=== PATIENT | male | born 1950 | race Caucasian/White ===

== ENCOUNTER 2017-06-03 03:50 | Inpatient (IN) | payer MEDICARE ==
[2017-06-03] VITALS (9 sets, daily range): BP systolic 111–198; BP diastolic 60–96
[~2017-06-03] VITALS: Ht 160 cm; Wt 124.0 kg
--- NOTE | ~2017-06-03 | PR ---
[place], [place] PROGRESS NOTE NAME: SHILPI FUENTES JR UNIT #: [id number] ROOM: 507 DOCTOR: AUDREY VELIZ MD BIRTHDATE: [birth year] DOS: SUBJECTIVE: The patient was seen today in the preoperative area prior to a planned elective cardioversion. He continues to have some cough and breathlessness along with fatigue and palpitations. He was taken to the operating room where he was given a total of 3 synchronized biphasic shocks under general anesthesia. The first one at 100 watt second, it did convert him to sinus rhythm for 2-3 heartbeats, but then he reverted back to atrial fibrillation. The second one at 100 watt seconds, had no effect. The third one at 200 watt seconds converted him for 15-20 seconds, but then he reverted back to atrial fibrillation. OBJECTIVE: VITAL SIGNS: On exam today, his pulse is 78 and irregularly irregular, blood pressure 130/80. He is afebrile. NECK: Supple. He has no jugular distention. CHEST: Clear anteriorly and laterally. HEART: Has an irregularly irregular rhythm. ABDOMEN: Obese. EXTREMITIES: Showed trace edema. IMPRESSION: 1. Persistent atrial fibrillation. 2. Hypertension. 3. Diastolic heart failure due to atrial fibrillation. PLAN: The patient did have a normal stress test and echocardiogram with normal left atrial dimensions. I think that he is a good candidate for antiarrhythmic therapy and another attempted cardioversion. The patient will be placed on propafenone 325 mg twice a day and discharged to home. After 3 weeks of therapy, we will attempt again to cardiovert him as an outpatient. I have discussed this with Dr. Marinelli. The plan was explained to the patient via the sign science interpreter and he appears to understand. I thank Dr. Marinelli for asking our advice regarding management of this patient. [place], [place] PROGRESS NOTE NAME: SHILPI FUENTES JR UNIT #: [id number] ROOM: 507 DOCTOR: AUDREY VELIZ MD BIRTHDATE: [birth year] AUDREY VELIZ MD CM:PNTRANS [id number] AUDREY VELIZ MD 06/07/17 2243 interface
--- NOTE | ~2017-06-03 | DS ---
[place], [place] DISCHARGE SUMMARY NAME: [facility]ES JR [id number] UN[facility] #: [id number] ROOM: 507 DOCTOR: RAND RITTER MD BIRTHDATE: [birth year] DOS: DATE OF DISCHARGE: 06/05/2017 DISCHARGE DIAGNOSES: 1. The patient with chest tightness from uncertain etiology, going for cardiac stress test and will be discharged to home if Cardiology finds the stress test to be normal. 2. Obesity. The patient working on diet. 3. Chronic stasis dermatitis involving both legs. 4. Benign essential hypertension. 5. Chronic atrial fibrillation. 6. Uncontrolled type 2 diabetes mellitus with poor compliance with diet. 7. Mixed hyperlipidemia. 8. Hearing impairment. HOSPITAL COURSE: The patient was admitted to [facility] with increased shortness of breath and chest tightness. The patient was evaluated by Cardiology. All cardiac enzymes have been negative and he will get a cardiac stress test tomorrow and if normal, he will be discharged to home or transferred to [facility] by Dr. Dc because he was scheduled for ablation procedure at ____ [facility] previously for chronic atrial fibrillation. Nursing staff will call me with cardiac stress test results. Chronic atrial fibrillation with controlled heart rates. The patient going for ablation study to be performed by his orthopedic podiatrist. The patient is anticoagulated with Xarelto. Benign essential hypertension with well controlled blood pressures. Uncontrolled type 2 diabetes mellitus, apparently diet related. The patient's blood sugars were better controlled during his stay at the hospital because he was kept on a no concentrated sweet diet, which he apparently does not follow at home. Mixed hyperlipidemia, treated with Lipitor, which was continued. The patient also takes aspirin. Pollen allergies, treated with cetirizine. DISCHARGE MANAGEMENT: Lipitor 10 mg a day, Zaroxolyn 20 mg a day, metoprolol 50 mg b.i.d., aspirin 81 mg a day, cetirizine 10 mg a day, potassium chloride 10 mEq b.i.d., furosemide 40 mg b.i.d., Cardizem-CD 240 mg b.i.d., losartan 50 mg daily, Tylenol p.r.n., DuoNeb every 6 hours as needed for shortness of breath, omeprazole 20 mg daily, metformin 1000 mg b.i.d. [place], [place] DISCHARGE SUMMARY NAME: SHILPI FUENTES JR UNIT #: [id number] ROOM: 507 DOCTOR: RAND RITTER MD BIRTHDATE: [birth year] RAND RITTER MD CM:DIMAS [id number] RAND RITTER MD 06/05/17 1208 interface
--- NOTE | ~2017-06-03 | PR ---
[place], [place] PROGRESS NOTE NAME: SHILPI FUENTES JR UNIT #: [id number] ROOM: 507 DOCTOR: AUDREY VELIZ MD BIRTHDATE: [birth year] DOS: 06/05/2017 SUBJECTIVE: The patient was seen in the Cardiology Department just prior to his stress test on 06/05/2017. He is a 67-year-old man who has a history of atrial fibrillation. He is a deaf mute. Communication skills seem quite limited. He tells me by writing on a piece of paper that his sister helps him with his medical care, but he does not know her phone number. He presented to the hospital on this occasion with substernal chest pain that began early on the morning of 06/03/2017. He was found to be in atrial fibrillation. Laboratory studies showed normal troponin levels. He was treated with rate control. Available family members did indicate that he had been scheduled for a cardioversion to be done by the [facility] on 06/05/2017; however, his pains happened before that. His pains have since resolved and we are doing a stress test today to help determine if he does have coronary artery disease as a cause. PHYSICAL EXAMINATION: VITAL SIGNS: His pulse is 78 and irregularly irregular, blood pressure 110/64. He weighs 124 kilograms. NECK: Supple. He has no jugular distention. Carotids are full. He has no bruits. LUNGS: Respirations are unlabored. CHEST: Clear. HEART: Has an irregularly irregular rhythm. No murmurs or gallops are heard. EXTREMITIES: Showed 1+ edema bilaterally. Chest x-ray showed small bilateral pleural effusions with bilateral lower airspace disease. However, a subsequent CAT scan of the chest showed no pulmonary emboli, no infiltrates. No pleural effusions were seen on the CAT scan and the findings of chest x-ray were probably related to the patient's body habitus and positioning. IMPRESSION: 1. Atrial fibrillation with rapid ventricular response, now controlled. 2. Atypical chest pain, no evidence for acute myocardial infarction. 3. Deafness with difficulty communicating. PLAN: We will proceed with a pharmacologic stress test today. Further recommendations depend upon the results of the stress test. We have also requested records from the [facility] to determine what else they know about his medical care and cardiac issues. I thank Dr. Jacek Marinelli for asking our advice regarding his care. [place], [place] PROGRESS NOTE NAME: SHILPI FUENTES JR UNIT #: [id number] ROOM: 507 DOCTOR: AUDREY VELIZ MD BIRTHDATE: [birth year] AUDREY VELIZ MD CM:PNTRANS [phone] AUDREY VELIZ MD 06/05/17 1333 interface
--- NOTE | ~2017-06-03 | EKG ---
[place], [place] ELECTROCARDIOGRAM REPORT NAME: SHILPI FUENTES JR UNIT #: [id number] ROOM: 507 DOCTOR: ESVIN LONDON [facility] BIRTHDATE: [birth year] DOS: 06/03/2017 TIME: 915 CONCLUSION: 1. Atrial fibrillation. 2. Poor R wave progression in the precordial leads. 3. Old anteroseptal infarction cannot be excluded. 4. Low voltage nonspecific ST changes. CARLOS MCALLISTER MD CM:EKGRPT:ELECTROCARDIOGRAM REPORT [id number] CARLOS MCALLISTER MD [facility]
--- NOTE | ~2017-06-03 | O ---
[place], [place] OPERATIVE NOTE NAME: SHILPI FUENTES JR UNIT #: [id number] ROOM: 507 DOCTOR: AUDREY VELIZ MD BIRTHDATE: [birth year] DOS: 06/07/2017 PROCEDURE: Elective cardioversion. INDICATIONS: Symptomatic atrial fibrillation. DESCRIPTION OF PROCEDURE: The patient was brought to the operating room in a fasting state. Informed consent had been obtained previously and confirmed in the preoperative area. The patient is deaf and mute and therefore, the probe permission and informed consent were obtained utilizing the assistance of a professional engineering designer. The patient was then brought to the operating room where he was anesthetized by Anesthesia staff. Anterior and posterior defibrillator pads were placed. Once an adequate degree of anesthesia was obtained, he was given a total of 3 biphasic synchronized shocks were delivered at 100, 100 and 200 watt seconds respectively. After the first shock, he did convert to sinus rhythm for 3-4 heartbeats, but then converted back to atrial fibrillation. The second shock, had no effect. The third shock did convert him to sinus rhythm for 15-20 seconds, but then he did convert back to atrial fibrillation. Vital signs were stable throughout and no complications were noted. IMPRESSION: 1. Briefly successful cardioversion; however, the patient reverted back to atrial fibrillation almost immediately. 2. No complications noted. PLAN: The patient will be started on propafenone and discharge to home. After 3 weeks of therapy, we will see him in the office to arrange for outpatient cardioversion while the patient is on antiarrhythmic therapy. This was explained to the patient through the services of a professional sign compressor battery pellets and he understands and appears to agree. AUDREY VELIZ MD CM:OPRECORD:OPERATIVE NOTE [id number] AUDREY VELIZ MD 06/07/17 1550 interface
--- NOTE | ~2017-06-03 | PR ---
[place], [place] PROGRESS NOTE NAME: SHILPI FUENTES JR UNIT #: [id number] ROOM: 507 DOCTOR: RAND RITTER MD BIRTHDATE: [birth year] DOS: 06/06/2017 SUBJECTIVE: The patient underwent cardiac stress testing with normal results, now waiting for cardioversion for chronic atrial fibrillation. PHYSICAL EXAMINATION: GENERAL APPEARANCE: The patient is alert and oriented x 3, in no visible distress. HEENT AND NECK: Exam within normal limits. CARDIOVASCULAR SYSTEM: Heart rate is regular in rate and rhythm. S1 and S2 normally audible. LUNGS: Clear to auscultation. ABDOMEN: Soft, nontender. No obvious organomegaly. Bowel sounds are present. EXTREMITIES: Without significant cyanosis or edema. IMPRESSION: 1. Chronic atrial fibrillation. The patient going for cardioversion tomorrow with the aircraft electronics technical officer. 2. Atypical chest pains apparently musculoskeletal, cardiac stress test was normal. 3. The patient with hearing impairment and speech impairment. 4. Obesity. The patient working on diet. 5. Benign essential hypertension. Blood pressure is being monitored and treated. 6. Type 2 diabetes mellitus, normally improved. Blood sugars are better controlled during the stay at the hospital because of no concentrated sweet diet that apparently does not follow at home. RAND RITTER MD CM:PNTRANS [id number] RAND RITTER MD 06/06/172230 interface
--- NOTE | ~2017-06-03 | WRIGHTHP ---
[place], [place] PATIENT HISTORY AND PHYSICAL EXAM [id number] UN[facility] #: [id number] ROOM: 507 DOCTOR: RAND RITTER MD BIRTHDATE: [birth year] DOS: 06/03/2017 HISTORY OF PRESENT ILLNESS: The patient is a 67-year-old gentleman with a past medical history of: 1. Obesity. 2. Chronic stasis dermatitis involving both legs. 3. Chronic atrial fibrillation. 4. Benign essential hypertension. 5. Uncontrolled type 2 diabetes mellitus. 6. Mixed hyperlipidemia. 7. Hearing impairment. The patient presented to the Emergency Department at [facility] with a few days complaints of increasing shortness of breath and some chest tightness with cough for a few months. The patient was seen in the Emergency Department and after checking initial cardiac enzymes recommended for admission and further management for chest pain. The patient has been seen by Dr. Dc, the alteration worker and recommended a cardiac stress test on Monday. The patient had an tooth cutter contact wheel present with him in his room today and there were just some complains of chest tightness and shortness of breath. No typical angina-like symptoms, nausea or diaphoresis. No GI or urinary symptoms. REVIEW OF SYSTEMS: LUNGS: Some increasing shortness of breath and chest tightness. GASTROINTESTINAL: No nausea, vomiting, diarrhea or constipation. CARDIOVASCULAR: Chest pain. No palpitations. FAMILY HISTORY: Noncontributory. SOCIAL HISTORY: The patient denies smoking cigarettes, alcohol and drug abuse. ALLERGIES: No known drug allergies. PHYSICAL EXAMINATION: GENERAL: Alert and oriented, but a poor historian, in no visible distress, morbid obesity.. VITAL SIGNS: Blood pressure 134/69, heart rate 59 beats per minute, breathing 18 times per minute, temperature 98.5 degrees Fahrenheit. HEENT AND NECK: Extraocular movements are intact. Sclerae are anicteric. Oral mucosa is moist and clean. No obvious facial weakness. Neck is supple without any lymphadenopathy. No thyromegaly. No JVD. No carotid arterial bruits. LUNGS: Clear to auscultation. No wheezing. No rhonchi. CARDIOVASCULAR SYSTEM: Heart rate is regular in rate and rhythm. S1 and S2 normally audible. No significant murmur or any other abnormal cardiac sounds. ABDOMEN: Soft, nontender. No obvious organomegaly. Bowel sounds are present. No obvious herniation. EXTREMITIES: Without significant cyanosis or edema. Warm to touch. CENTRAL NERVOUS SYSTEM: Speech impairment along with hearing impairment. LABORATORY DATA: CT angiogram of the chest showing no acute abnormality. [place], [place] PATIENT HISTORY AND PHYSICAL EXAM NAME: SHILPI FUENTES JR UNIT #: [id number] ROOM: 507 DOCTOR: RAND RITTER MD BIRTHDATE: [birth year] Cardiac enzymes, troponin I levels x 3 were all negative. IMPRESSION: 1. The patient has chest pains from uncertain etiology. The patient to be taken for a cardiac stress test on Monday by Dr. Dc, the alteration worker. Cardiac enzymes have been negative. 2. Chronic atrial fibrillation with controlled heart rates. The patient anticoagulated with Xarelto, Cardiology following. 3. Benign essential hypertension. Blood pressure is being monitored and treated. 4. Mixed hyperlipidemia, treated with statins. 5. Poorly controlled type 2 diabetes mellitus. We will check hemoglobin A1c. The patient is poorly compliant with his diet. Blood sugars in the hospital have been ranging between 144 to 183 since he was put on no concentrated sweet diet. 6. Bilateral lower lung infiltrate on chest x-ray with mild leukocytosis. I will ask Dr. So, the automobile or truck rental dispatcher to evaluate him for this. CT angiogram of the chest, no significant abnormality was reported except for bibasilar atelectasis, so apparently the reported lung infiltrates were not seen on the CAT scan. RAND RITTER MD CM:HISPHYS:PATIENT HISTORY AND PHYSICAL EXAMINATION 31 02 RAND RITTER MD 06/03/172301 interface
[~2017-06-03 03:50] MED LIST: AMOX/CLAV POT 81 TAB PO; AUGMENTIN 875875 MG PO; BACTRIM DS 8001 TAB PO; BLOOD PRESSURE PILL; DAYPRO600 M1 PO; HYDROCODONE BIT1 T11 PO; KEFLEX500 M1 PO; LISINOPRIL AND1 TA2 PO; MOTRIN800 MG PO; MUPIROCIN15 GM TP; VICODIN 500 MG-1 TAB PO
[2017-06-03 04:12] LABS: BASO # 0.1 10*3/uL (0.0-0.1); BASO % 0.4 % (0.0-1.0); EOS # 0.3 10*3/uL (0.0-0.4); EOS % 2.2 % (1.0-4.0); HEMATOCRIT 46.9 % (42.0-52.0); HEMOGLOBIN 15.2 g/dl (14.0-18.0); LYMPH # 2.7 10*3/uL (1.3-4.4); LYMPH % 20.4 % (27.0-41.0); MEAN CELL VOLUME 92.5 fl (80.0-94.0); MEAN CORPUSCULAR HGB CONC 32.4 g/dl (33.0-37.0); MEAN PLATELET VOLUME 10.3 fl (9.6-12.3); MONO # 1.4 10*3/uL (0.1-1.0); MONO % 10.5 % (3.0-9.0); NEUT # 8.9 10*3/uL (2.3-7.9); NEUT % 66.2 % (47.0-73.0); PLATELET COUNT AUTOMATED 298 10*3/uL (130-400); RED BLOOD COUNT 5.07 10*6/uL (4.50-5.90); RED CELL DISTRI WIDTH 13.6 % (0-14.5); WHITE BLOOD COUNT 13.4 10*3/uL (4.8-10.8)
[2017-06-03 04:22] LABS: ACT PARTIAL THROMBO TIME 38.7 SECONDS (20.8-31.5); INTERNATIONAL NORM RATIO 1.3 (2.0-3.5)
[2017-06-03 04:29] LABS: ALBUMIN 3.4 gm/dl (3.1-4.5); ALKALINE PHOSPHATASE 106 U/L (45-117); BUN 30 mg/dl (7-24); CHLORIDE 103 mmol/L (98-107); CREATININE 1.07 mg/dL (0.70-1.30); MAGNESIUM 1.9 mg/dL (1.5-2.1); POTASSIUM 4.1 mmol/L (3.5-5.1); SGOT/AST 21 IU/L (3-35); SGPT/ALT 32 U/L (12-78); SODIUM 140 mmol/L (136-145); TOTAL PROTEIN 7.8 gm/dL (6.4-8.2)
[2017-06-03 04:30] LABS: TROPONIN I < 0.015 ng/ml (<0.045)
[2017-06-03] MEDS ORDERED: METFORMIN1000 MG PO (04:42)
[2017-06-03] MEDS ORDERED: LOSARTAN POTASS50 M1 PO (04:42)
[2017-06-03] MEDS ORDERED: XARE20MG PO (04:42)
[2017-06-03] MEDS ORDERED: CARTIA XT240 MG PO (04:43)
[2017-06-03] MEDS ORDERED: LASIX40 MG PO (04:43)
[2017-06-03] MEDS ORDERED: LIPITOR10 MG PO (04:43)
[2017-06-03] MEDS ORDERED: KLOR-CON SPRIN10 MEQ PO (04:43)
[2017-06-03] MEDS ORDERED: SPIRIVA18 MCG PO (04:44)
[2017-06-03] MEDS ORDERED: PRILOSEC20 M1 PO (04:44)
[2017-06-03] MEDS ORDERED: VITAMIN D50000 UNIT PO (04:45)
[2017-06-03] MEDS ORDERED: PROAIR HFA8.5 GM INH (04:45)
[2017-06-03] MEDS ORDERED: FISH OIL500 M2 PO (04:45)
[2017-06-03] MEDS ORDERED: ZYRTEC10 MG PO (06:35)
[2017-06-04] VITALS: BP 119/71
[2017-06-04 06:25] LABS: BASO % 0.4 % (0.0-1.0); EOS # 0.3 10*3/uL (0.0-0.4); EOS % 3.1 % (1.0-4.0); HEMATOCRIT 42.7 % (42.0-52.0); HEMOGLOBIN 13.9 g/dl (14.0-18.0); LYMPH # 1.6 10*3/uL (1.3-4.4); LYMPH % 15.9 % (27.0-41.0); MEAN CORPUSCULAR HGB 30.3 pg (27.0-31.0); MEAN CORPUSCULAR HGB CONC 32.6 g/dl (33.0-37.0); MEAN PLATELET VOLUME 10.6 fl (9.6-12.3); MONO # 0.9 10*3/uL (0.1-1.0); MONO % 8.8 % (3.0-9.0); NEUT % 71.4 % (47.0-73.0); PLATELET COUNT AUTOMATED 240 10*3/uL (130-400); RED BLOOD COUNT 4.59 10*6/uL (4.50-5.90); RED CELL DISTRI WIDTH 13.8 % (0-14.5); WHITE BLOOD COUNT 9.9 10*3/uL (4.8-10.8)
[2017-06-04 06:39] LABS: BUN 25 mg/dl (7-24); CHLORIDE 102 mmol/L (98-107); CREATININE 0.95 mg/dL (0.70-1.30); POTASSIUM 3.7 mmol/L (3.5-5.1); SODIUM 137 mmol/L (136-145)
[2017-06-04 08:00] VITALS: BP 112/90; BP 113/90
[2017-06-04 12:00] VITALS: BP 102/50
[2017-06-04 16:00] VITALS: BP 101/59
[2017-06-04 20:00] VITALS: BP 115/64
[2017-06-05] VITALS: BP 114/59
[2017-06-05 08:00] VITALS: BP 112/57
[2017-06-05 14:39] VITALS: BP 122/81
[2017-06-05 17:22] VITALS: BP 102/65
[2017-06-05 20:00] VITALS: BP 111/81
[2017-06-06] VITALS: BP 118/76
[2017-06-06 08:00] VITALS: BP 126/82
[2017-06-06 12:00] VITALS: BP 124/84
[2017-06-06 16:00] VITALS: BP 128/84
[2017-06-06 20:00] VITALS: BP 104/75
[2017-06-06 21:55] VITALS: BP 132/81
[2017-06-07] VITALS (8 sets, daily range): BP systolic 120–155; BP diastolic 54–91
[2017-06-07 06:49] LABS: BASO # 0.1 10*3/uL (0.0-0.1); BASO % 0.5 % (0.0-1.0); EOS # 0.4 10*3/uL (0.0-0.4); EOS % 3.4 % (1.0-4.0); HEMATOCRIT 46.5 % (42.0-52.0); HEMOGLOBIN 15.4 g/dl (14.0-18.0); LYMPH % 15.5 % (27.0-41.0); MEAN CELL VOLUME 93.4 fl (80.0-94.0); MEAN CORPUSCULAR HGB 30.9 pg (27.0-31.0); MEAN CORPUSCULAR HGB CONC 33.1 g/dl (33.0-37.0); MEAN PLATELET VOLUME 10.7 fl (9.6-12.3); MONO # 1.1 10*3/uL (0.1-1.0); MONO % 8.7 % (3.0-9.0); NEUT # 9.1 10*3/uL (2.3-7.9); NEUT % 71.6 % (47.0-73.0); PLATELET COUNT AUTOMATED 292 10*3/uL (130-400); RED BLOOD COUNT 4.98 10*6/uL (4.50-5.90); RED CELL DISTRI WIDTH 13.6 % (0-14.5); WHITE BLOOD COUNT 12.7 10*3/uL (4.8-10.8)
[2017-06-07 07:31] LABS: BUN 29 mg/dl (7-24); CHLORIDE 101 mmol/L (98-107); CREATININE 1.21 mg/dL (0.70-1.30); SODIUM 138 mmol/L (136-145)
[2017-06-07] MEDS ORDERED: PROPAFENONE HC225 M1 PO (14:16)
[2017-06-07] MEDS ORDERED: BENZONATATE100 M1 PO (14:16)
[2017-06-07] MEDS ORDERED: TOPROL XL50 M1 PO (14:16)
[2017-06-07] MEDS ORDERED: ASPIRIN ADULT L81 M2 PO (14:16)
[2017-06-07] MEDS ORDERED: [UNRECOGNIZED DRUG - OTHER] PO (18:31)
== END 2017-06-07 19:33 | disposition home or self-care (01) | DRG 309 ==
LOC: ED 03:50 → EDHOLD 05:11 → 5E 05:11
PROVIDERS: Internal Medicine Hospice and Palliative Medicine; Student in an Organized Health Care Education/Training Program; ADMIT Internal Medicine
PROC: 3E073KZ Introduction of Other Diagnostic Substance into Coronary Artery, Percutaneous Approach (ICD-10-PCS; principal; 2017-06-05)
PROC: 4A02XM4 Measurement of Cardiac Total Activity, External Approach (ICD-10-PCS; principal; 2017-06-05)
PROC: 5A2204Z Restoration of Cardiac Rhythm, Single (ICD-10-PCS; 2017-06-07)
DX: I48.1 Persistent atrial fibrillation (principal); D68.59 Other primary thrombophilia; E11.65 Type 2 diabetes mellitus with hyperglycemia; I11.0 Hypertensive heart disease with heart failure; I50.30 Unspecified diastolic (congestive) heart failure; Z68.42 Body mass index [BMI] 45.0-49.9, adult; R07.89 Other chest pain; I87.2 Venous insufficiency (chronic) (peripheral); E78.2 Mixed hyperlipidemia; H91.90 Unspecified hearing loss, unspecified ear; R91.8 Other nonspecific abnormal finding of lung field; D72.829 Elevated white blood cell count, unspecified; D72.810 Lymphocytopenia; K21.9 Gastro-esophageal reflux disease without esophagitis; E66.01 Morbid (severe) obesity due to excess calories; H91.3 Deaf nonspeaking, not elsewhere classified; J30.2 Other seasonal allergic rhinitis; E55.9 Vitamin D deficiency, unspecified; Z79.899 Other long term (current) drug therapy

== ENCOUNTER 2017-06-24 09:08 | Inpatient (IN) | payer MEDICARE ==
[~2017-06-24] VITALS: Ht 160 cm; Wt 120.8 kg
--- NOTE | ~2017-06-24 | PR ---
[place], [place] PROGRESS NOTE NAME: SHILPI FUENTES JR UNIT #: [id number] ROOM: 530 DOCTOR: ALICIA GREENE MD BIRTHDATE: [birth year] DOS: SUBJECTIVE: The patient states that he is feeling good. No furniture decals inspector is available today. OBJECTIVE: VITAL SIGNS: Graphic trend shows a pressure 96/54, pulse of 75, respirations 22, temperature 97.5. LUNGS: Clear. HEART: Few scattered fine wheezes heard in the upper airways. HEART: Regular. ABDOMEN: Obese. EXTREMITIES: Without any edema. LABORATORY DATA: Ultrasound of the abdomen did not show any ascites, steatosis was noted. Blood cultures so far show no bacterial growth. ASSESSMENT AND PLAN: 1. Acute diastolic congestive heart failure, on IV diuretics. 2. Acute exacerbation of chronic obstructive pulmonary disease. There is no evidence of pneumonia on the CT scan. The patient is on IV antibiotics. 3. Type 2 diabetes mellitus. Blood sugars fairly controlled here. The plan is to discharge him to home tomorrow. ALICIA GREENE MD CM:PNTRANS 0901 32 ALICIA GREENE MD 06/27/172232 interface
--- NOTE | ~2017-06-24 | WRIGHTHP ---
[place], [place] PATIENT HISTORY AND PHYSICAL EXAM NAME: [id number] UN[facility] #: [id number] ROOM: 530 DOCTOR: ALICIA GREENE MD BIRTHDATE: [birth year] DOS: 06/24/2017 HISTORY OF PRESENT ILLNESS: This patient is a 67-year-old. The history is obtained using an film washer because of his dizziness. The patient lives with his sister and his nephew, complains of shortness of breath, so he came into the emergency room where he was worked up and was found to have a left lower lobe pneumonia and was admitted. The patient states that he has some left-sided chest discomfort. Denies having any fever or any chills. Cough is productive of scant amounts of sputum. Denies having any nausea, any emesis. His legs have been quite swollen. He does not watch his diet as per the film washer. PAST MEDICAL HISTORY: Significant for: 1. Last hospitalization earlier this last month in 2017. He had cardioversion for atrial fibrillation, but reverted back to the AFib and continues to remain in AFib. He also underwent a stress test, which did not show any reversible perfusion defects. 2. Chronic stasis dermatitis. 3. Benign hypertension. 4. Mixed hyperlipidemia. 5. Type 2 diabetes mellitus, noncompliance to diet. MEDICATIONS: Aspirin, atorvastatin 10, Zyrtec 10 p.r.n., vitamin D 50,000 units one twice a week, diltiazem 240 b.i.d., Lasix 40 b.i.d., losartan 50 daily, metformin 1000 b.i.d., metoprolol 50 b.i.d., omeprazole 20 daily, potassium 10 b.i.d., propafenone 225 b.i.d., Xarelto 20 daily, Spiriva 1 puff at bedtime. SOCIAL HISTORY: Nonsmoker, does not use any alcohol. PHYSICAL EXAMINATION: GENERAL: He is awake and alert and oriented, in some mild respiratory distress. VITAL SIGNS: Graphic trend shows pressure 110/62, pulse of 88, respirations 20, temperature 97.5. LUNGS: Diminished breath sounds, very poor air entry. HEART: Regular. ABDOMEN: Obese, heart is irregular. EXTREMITIES: About 2+ pitting edema bilaterally, some changes in the skin color noticed from stasis dermatitis. LABORATORY DATA: Lactic acid was normal. White blood cell count is 18.4, hemoglobin 15.8. Comprehensive glucose 138, BUN 28, creatinine 1.13. Electrolytes were normal. Chest x-ray shows moderate size pleural effusion with atelectasis. ASSESSMENT AND PLAN: 1. The patient admitted with left lower lobe pneumonia. We will do a CT of the chest because this appears to be more an effusion than actual pneumonia. The patient will be placed on IV antibiotics. 2. Acute diastolic congestive heart failure, with leg edema, pleural effusion, most likely from underlying congestive heart failure. Continue diuretics IV. Recent cardiac workup showed normal LV function. [place], [place] PATIENT HISTORY AND PHYSICAL EXAM NAME: SHILPI FUENTES JR UNIT #: [id number] ROOM: [facility] DOCTOR: ALICIA GREENE MD BIRTHDATE: [birth year] 3. Chronic atrial fibrillation, controlled long-term use of anticoagulants. ALICIA GREENE MD CM:HISPHYS:PATIENT HISTORY AND PHYSICAL EXAMINATION 0839 1013 ALICIA GREENE MD 06/25/17 1413 interface
--- NOTE | ~2017-06-24 | PR ---
[place], [place] PROGRESS NOTE NAME: SHILPI FUENTES JR UNIT #: [id number] ROOM: 530 DOCTOR: ALICIA GREENE MD BIRTHDATE: [birth year] DOS: SUBJECTIVE: The patient did not have any ____ this morning. I saw him around 8:30 this afternoon. PHYSICAL EXAMINATION: VITAL SIGNS: Graph trend shows blood pressure 117/75, pulse of 80, respirations 18, temperature 97.5. LUNGS: Diminished breath sounds. No wheezes, rales or rhonchi heard. HEART: Regular. ABDOMEN: Obese, distended. EXTREMITIES: Decreased edema. LABORATORY DATA: None available this morning. CT of the chest shows small pleural effusion and atelectasis. ASSESSMENT AND PLAN: 1. Acute diastolic congestive heart failure, improving. 2. Atelectasis noted on a CT scan with an elevated white cell count of 18,000, possible underlying pneumonia with gram-negative bacteria. The patient is on antibiotics. 3. Abdominal distention. Ultrasound of the abdomen is ordered today. 4. The patient is deaf and is unable to communicate very well, but I did try to explain to him that he is getting better. ALICIA GREENE MD CM:PNTRANS 0845 2227 ALICIA GREENE MD 06/27/17 0924 interface
--- NOTE | ~2017-06-24 | DS ---
[place], [place] DISCHARGE SUMMARY NAME: [facility] JR [id number] UN[facility] #: [id number] ROOM: 530 DOCTOR: ALICIA GREENE MD BIRTHDATE: [birth year] DOS: 06/29/2017 HOSPITAL COURSE: The patient is 67 years old. The patient is known to us, comes in with complaints of difficulty breathing and swelling in his legs. He was evaluated in the ER, was found to have left lower lobe pneumonia, was admitted. After admission, a CT of the chest was done. IV antibiotics were started. The CT did not show any evidence of pneumonia. On the other hand, the left pleural effusion was noted. IV diuretics were given for acute diastolic CHF and leg edema. With that, the patient has improved much clinically and radiologically. The leg swelling has improved. In fact diuretics were so strong, he developed some prerenal azotemia from over diuresis and hypotension, so med adjustments were made. The kidney functions have improved and is back to normal and the blood pressures have normalized. He continues to remain in chronic atrial fibrillation and is on multiple antihypertensives and antiarrhythmics as well as long-term use of anticoagulants have been continued. The patient is stable and improved and is not having any new complaints, so the plan is to discharge him to home is encouraged to use his nebulizer. Visiting nurses have been consulted. DISCHARGE DIAGNOSES: 1. Acute diastolic congestive heart failure. 2. Acute tracheobronchitis. 3. Chronic obstructive pulmonary disease. 4. Chronic atrial fibrillation. 5. Type 2 diabetes mellitus. 6. Noncompliance with poor insight to medical problems. 7. History of deafness, requiring strap cutter. MEDICATIONS: Zyrtec 10 daily, Spiriva 1 puff at bedtime, DuoNeb q. 4, Xarelto 20 daily, propafenone 225 twice a day, atorvastatin 10 daily, omega fatty acid 1000 b.i.d., metoprolol 150 mg daily, diltiazem 240 b.i.d., losartan 50 daily, aspirin 81 daily, [place] 5 q. 6 p.r.n., potassium 10 b.i.d., Lasix 40 b.i.d., omeprazole 20 daily, metformin 1000 b.i.d., Novolin sliding scale, ammonium lactate for local application, vitamin D 50,000 units once a week, Ceftin 250 twice a day. [place], [place] DISCHARGE SUMMARY NAME: SHILPI FUENTES JR UNIT #: [id number] ROOM: 530 DOCTOR: ALICIA GREENE MD BIRTHDATE: [birth year] ALICIA GREENE MD CM:DIMAS [phone] ALICIA GREENE MD 06/29/17 1110 interface
--- NOTE | ~2017-06-24 | PR ---
[place], [place] PROGRESS NOTE NAME: SHILPI FUENTES JR UNIT #: [id number] ROOM: 530 DOCTOR: ALICIA GREENE MD BIRTHDATE: [birth year] DOS: SUBJECTIVE: The patient states that he finally feels better and does not have any new complaints. He is denying having any chest pains or palpitations. As per nursing staff, his blood pressure has been running low, 92/52 at 8:00 this morning. OBJECTIVE: VITAL SIGNS: Examination today again shows blood pressure of 147/86, pulse of 56, respirations 18, temperature 97.7. LUNGS: Clear. HEART: Irregular, heart rate in the low 50s. ABDOMEN: Obese, soft. EXTREMITIES: Without any edema. IMAGING: Chest x-ray shows cardiomegaly without any evidence of CHF. Small pleural effusion was noted. LABORATORY DATA: BMP: Glucose 119, BUN 38, creatinine 1.17. Electrolytes were normal. No CBC is available. ASSESSMENT AND PLAN: 1. Acute diastolic congestive heart failure, improved. We will decrease the dose of the diuretics. 2. Prerenal azotemia, possibly from over diuresis. This might be causing his low blood pressure also. We will hold off on his antihypertensives right now. 3. Type 2 diabetes mellitus, insulin-dependent. Blood sugars are controlled. I did tell them that once his blood pressure improves, the plan is to discharge him to home tomorrow. ALICIA GREENE MD CM:PNTRANS [phone] ALICIA GREENE MD 06/28/17 7927 interface
--- NOTE | ~2017-06-24 | PR ---
[place], [place] PROGRESS NOTE NAME: SHILPI FUENTES JR UNIT #: [id number] ROOM: 530 DOCTOR: ALICIA GREENE MD BIRTHDATE: [birth year] DOS: SUBJECTIVE: The patient is doing fine without any complaints. Denies any chest pains, palpitations or shortness of breath. OBJECTIVE: VITAL SIGNS: Graphic trend shows blood pressure 123/66, pulse of 99, respirations 20, temperature 97.5. LUNGS: Clear. HEART: Regular. ABDOMEN: Obese. EXTREMITIES: Decreased edema. Chronic stasis dermatitis, which is pretty much the same. LABORATORY DATA: White cell count is 9.8, hemoglobin and hematocrit are normal. Comprehensive: Glucose 114, BUN 24, creatinine 1.01. Electrolytes normal. Chest x-ray does not show any new pathology. ASSESSMENT AND PLAN: 1. Acute diastolic congestive heart failure, improved clinically and radiologically. 2. Left lower lobe pneumonia, nothing seen on the CT of the chest, was treated with antibiotics p.o., prescription for p.o. antibiotics will also be given. The patient is encouraged to use a nebulizer at home. 3. Benign hypertension. Pressures have normalized after adjustments in medicines. Kidney functions have also improved. ALICIA GREENE MD CM:PNTRANS [phone] ALICIA GREENE MD 06/29/17 1213 interface
--- NOTE | ~2017-06-24 | PR ---
[place], [place] PROGRESS NOTE NAME: SHILPI FUENTES JR UNIT #: [id number] ROOM: 530 DOCTOR: CROW LONDON,ALESSIA Thompson BIRTHDATE: [birth year] DOS: SUBJECTIVE: The patient did not have any ____ this morning. I saw him around 8:30 this afternoon. PHYSICAL EXAMINATION: VITAL SIGNS: Graph trend shows blood pressure 117/75, pulse of 80, respirations 18, temperature 97.5. LUNGS: Diminished breath sounds. No wheezes, rales or rhonchi heard. HEART: Regular. ABDOMEN: Obese, distended. EXTREMITIES: Decreased edema. LABORATORY DATA: None available this morning. CT of the chest shows small pleural effusion and atelectasis. ASSESSMENT AND PLAN: 1. Acute diastolic congestive heart failure, improving. 2. Atelectasis noted on a CT scan with an elevated white cell count of 18,000, possible underlying pneumonia with gram-negative bacteria. The patient is on antibiotics. 3. Abdominal distention. Ultrasound of the abdomen is ordered today. 4. The patient is deaf and is unable to communicate very well, but I did try to explain to him that he is getting better. ALESSIA MARIA MD CM:PNTRANS [phone] ALESSIA MARIA MD 06/27/17 0932 SARAHY JORGE [facility].ROLLY
[~2017-06-24 09:08] MED LIST changes: +ASPIRIN ADULT L81 M2 PO; +BENZONATATE100 M1 PO; +CARTIA XT240 MG PO; +FISH OIL500 M2 PO; +KLOR-CON SPRIN10 MEQ PO; +LASIX40 MG PO; +LIPITOR10 MG PO; +LOSARTAN POTASS50 M1 PO; +METFORMIN1000 MG PO; +PRILOSEC20 M1 PO; +PROAIR HFA8.5 GM INH; +PROPAFENONE HC225 M1 PO; +SPIRIVA18 MCG PO; +TOPROL XL50 M1 PO; +VITAMIN D50000 UNIT PO; +XARE20MG PO; +ZYRTEC10 MG PO; +[UNRECOGNIZED DRUG - OTHER] PO
[2017-06-24 09:34] VITALS: BP 125/84
[2017-06-24 09:38] LABS: HEMATOCRIT 47.3 % (42.0-52.0); HEMOGLOBIN 15.8 g/dl (14.0-18.0); MEAN CELL VOLUME 91.3 fl (80.0-94.0); MEAN CORPUSCULAR HGB 30.5 pg (27.0-31.0); MEAN CORPUSCULAR HGB CONC 33.4 g/dl (33.0-37.0); MEAN PLATELET VOLUME 10.5 fl (9.6-12.3); PLATELET COUNT AUTOMATED 304 10*3/uL (130-400); RED BLOOD COUNT 5.18 10*6/uL (4.50-5.90); RED CELL DISTRI WIDTH 13.4 % (0-14.5); WHITE BLOOD COUNT 18.4 10*3/uL (4.8-10.8)
[2017-06-24 09:54] LABS: ALBUMIN 3.5 gm/dl (3.1-4.5); ALKALINE PHOSPHATASE 105 U/L (45-117); BUN 28 mg/dl (7-24); CHLORIDE 100 mmol/L (98-107); CREATININE 1.13 mg/dL (0.70-1.30); MAGNESIUM 2.1 mg/dL (1.5-2.1); POTASSIUM 3.7 mmol/L (3.5-5.1); SGOT/AST 9 IU/L (3-35); SGPT/ALT 25 U/L (12-78); SODIUM 136 mmol/L (136-145); TOTAL PROTEIN 8.1 gm/dL (6.4-8.2)
[2017-06-24 09:56] LABS: BASOPHILS 1 % (0-1); TOTAL CELLS COUNTED 100 #CELLS
[2017-06-24 09:57] LABS: PLATELET SUFFICIENCY NORMAL (NORMAL); TOXIC GRANULATION SLIGHT; TROPONIN I < 0.015 ng/ml (<0.045); VACUOLATION OF NEUTROPHILS SLIGHT
[2017-06-24 10:02] LABS: ACT PARTIAL THROMBO TIME 39.6 SECONDS (20.8-31.5); INTERNATIONAL NORM RATIO 1.4 (2.0-3.5)
[2017-06-24 12:22] VITALS: BP 101/59
[2017-06-24 12:45] VITALS: BP 102/60
--- NOTE | 2017-06-24 12:45 | NUR ---
A 67 YEAR OLD MALE, admitted to , under the services of ALICIA Holbrook MD with a diagnosis of PNEUMONIA. Chief complaint is MIDSTERNAL CHEST PAIN AND SOB. Patient arrived via stretcher from ER. Monitor applied. Initial assessment completed. Vital signs taken and recorded. ALICIA HOLBROOK MD notified of admission to the unit. Orders received. See assessment for past medical history, medications and allergies. Patient and/or family oriented to unit. [facility] visitation policy reviewed. Clothing/patient valuable form completed. CARLOS HARTLEY
[2017-06-24] MEDS ORDERED: [UNRECOGNIZED DRUG - OTHER] PO (13:21)
[2017-06-24] MEDS ORDERED: GERI-HYDROLAC222 ML T (13:24)
--- NOTE | 2017-06-24 15:05 | NUR ---
MED REC UDATED USING INFORMATION FROM ADMISSION TWO WEEKS PRIOR; PER FAMILY MEDICATIONS HAVE NOT CHANGED AT ALL SINCE LAST ADMISSION/DISCHARGE. ADDED LACHYDRIN LOTION THAT IS LISTED IN CLAIMS HISTORY.
--- NOTE | 2017-06-24 15:37 | NUR ---
MEDICATED WITH PRN PO TYLENOL FOR C/O HEADACHE.
[2017-06-24 16:00] VITALS: BP 97/64
--- NOTE | 2017-06-24 17:01 | NUR ---
PATIENT CONTINUES TO C/O PAIN TO CENTER OF CHEST ASSOCIATED WITH BREATHING IN.
--- NOTE | 2017-06-24 17:48 | NUR ---
PRN PO TYLENOL WAS INEFFECTIVE FOR HEADACHE AND CHEST PAIN; PHONED DR. GREENE FOR ORDER FOR PRN PO NORCO.
--- NOTE | 2017-06-24 17:53 | NUR ---
Discharge instructions reviewed with patient. Patient receptive and verbalizes understanding. Follow-up care arranged. Written instructions given to patient. MANI FREGOSO
--- NOTE | 2017-06-24 18:10 | NUR ---
NORCO 5/325 MG TABLET ADMINISTERED PO FOR PAIN. WILL MONITOR FOR EFFECTIVENESS. CALL LIGHT IN REACH.
--- NOTE | 2017-06-24 18:57 | NUR ---
NORCO 5/325 MG TABLET EFFECTIVE. NO S/S OF PAIN AT THIS TIME. CALL LIGHT IN REACH.
[2017-06-24 20:00] VITALS: BP 104/51
--- NOTE | 2017-06-24 20:15 | NUR ---
ASSIST OF 2 OUT OF BATHROOM & BACK TO BED.
--- NOTE | 2017-06-24 22:00 | NUR ---
TOOK PO MEDICATIONS WITHOUT DIFFICULTY. VOICES NO C/O AT THIS TIME. CALL LIGHT WITHIN REACH.
[2017-06-25] VITALS: BP 102/53
[2017-06-25 08:14] VITALS: BP 110/62
[2017-06-25 13:06] VITALS: BP 110/59
[2017-06-25 16:00] VITALS: BP 106/72
[2017-06-25 20:00] VITALS: BP 99/63
[2017-06-26] VITALS: BP 117/75
[2017-06-26 08:00] VITALS: BP 104/54
--- NOTE | 2017-06-26 08:30 | NUR ---
POLICY CANCELLATION CLERK VS. STAFF IN ROOM. FROM LAST VISIT, PT LIVES WITH HIS NEPHEW AND IS CARED FO RBY HIS SISTER. PT IS DEAF.
[2017-06-26 12:00] VITALS: BP 100/68
[2017-06-26 16:00] VITALS: BP 115/53
[2017-06-26 20:00] VITALS: BP 111/65
--- NOTE | 2017-06-26 21:15 | NUR ---
PATIENT SITTING AT SIDE OF BED PLAYING IPAD GAME. NO VOICED COMPLAINTS AT THIS TIME. RESPIRATIONS EASY/REG. STATES HE HAS SOB WITH EXERTION. AMBULATES, STEADY GAIT. CALL LIGHT IS IN REACH. WILL MONITOR.
[2017-06-27] VITALS: BP 116/65
--- NOTE | 2017-06-27 04:40 | NUR ---
PATIENT SLEEPING. NO SXS OF DISTRESS AT THIS TIME. RESPIRATIONS EASY/REG. CALL LIGHT IN REACH. WILL MONITOR.
--- NOTE | 2017-06-27 06:55 | NUR ---
SLEPT T/O SHIFT WITH NO VOICED COMPLAINTS. CURRENTLY RESTING IN BED. NO SXS OF DISTRESS. RESPIRATIONS EASY/REG. CALL LIGHT IN REACH.
[2017-06-27 08:00] VITALS: BP 96/54
[2017-06-27 09:45] LABS: BASO # 0.1 10*3/uL (0.0-0.1); BASO % 0.6 % (0.0-1.0); EOS # 0.9 10*3/uL (0.0-0.4); EOS % 6.7 % (1.0-4.0); HEMATOCRIT 44.1 % (42.0-52.0); HEMOGLOBIN 14.7 g/dl (14.0-18.0); LYMPH # 1.5 10*3/uL (1.3-4.4); LYMPH % 11.8 % (27.0-41.0); MEAN CELL VOLUME 93.8 fl (80.0-94.0); MEAN CORPUSCULAR HGB 31.3 pg (27.0-31.0); MEAN CORPUSCULAR HGB CONC 33.3 g/dl (33.0-37.0); MEAN PLATELET VOLUME 10.5 fl (9.6-12.3); MONO # 1.4 10*3/uL (0.1-1.0); MONO % 10.7 % (3.0-9.0); NEUT # 9.1 10*3/uL (2.3-7.9); NEUT % 69.7 % (47.0-73.0); PLATELET COUNT AUTOMATED 326 10*3/uL (130-400); RED CELL DISTRI WIDTH 13.4 % (0-14.5)
--- NOTE | 2017-06-27 11:27 | NUR ---
DR. GREENE NOTIFIED OF BLOOD PRESSURE. SHE STATED TO HOLD [place] AND DEXTER FOR THIS AM.
[2017-06-27 12:00] VITALS: BP 100/50
[2017-06-27 16:00] VITALS: BP 109/65
--- NOTE | 2017-06-27 18:18 | NUR ---
RESTING WITH NO COMPLAINTS. O2 IN USE. NO ACUTE DISTRESS.
[2017-06-27 20:00] VITALS: BP 143/80
--- NOTE | 2017-06-27 21:12 | NUR ---
PT REQUESTED PAIN MEDICATION FOR BILAT FLANK PAIN WHEN COUGHING. PAIN RATED AT 5 OUT OF 10. TYLENOL WAS GIVEN.
[2017-06-27 22:00] VITALS: BP 111/59
--- NOTE | 2017-06-27 22:53 | NUR ---
PT REMOVED OXYGEN DUE TO IRRITATION AND DRIED SINUS. OXYGEN SATURATION WAS 94% ON RA. REPIRATORY CHECKED OXYGEN SAT, IT WAS 97% ON RA.
[2017-06-28] VITALS: BP 142/78
[2017-06-28 06:27] LABS: BUN 38 mg/dl (7-24); CHLORIDE 102 mmol/L (98-107); CREATININE 1.17 mg/dL (0.70-1.30); POTASSIUM 3.9 mmol/L (3.5-5.1); SODIUM 139 mmol/L (136-145)
[2017-06-28 08:00] VITALS: BP 92/52
[2017-06-28 11:03] VITALS: BP 110/60
[2017-06-28 12:00] VITALS: BP 125/76
[2017-06-28 16:00] VITALS: BP 147/86
[2017-06-28 20:00] VITALS: BP 135/71
--- NOTE | 2017-06-28 21:05 | NUR ---
PT REQUESTED PAIN MEDICATION FOR FLANK PAIN FROM COUGHING. PAIN RATED PAIN OUT OF 10. TYLENOL WAS GIVEN.
--- NOTE | 2017-06-28 22:00 | NUR ---
PAIN MEDICATION WAS EFFECTIVE. PT RATES PAIN AT 3 OF 10.
--- NOTE | 2017-06-28 22:52 | NUR ---
FOUND IV SITE TO BE OUTDATED TODAY. PT REQUESTED NEW IV BE PLACED TOMORROW, 06/29/17.
[2017-06-29] VITALS: BP 143/82
[2017-06-29 07:11] LABS: BASO # 0.1 10*3/uL (0.0-0.1); BASO % 0.7 % (0.0-1.0); EOS # 0.7 10*3/uL (0.0-0.4); EOS % 7.1 % (1.0-4.0); HEMATOCRIT 45.2 % (42.0-52.0); HEMOGLOBIN 14.7 g/dl (14.0-18.0); LYMPH # 1.7 10*3/uL (1.3-4.4); LYMPH % 17.4 % (27.0-41.0); MEAN CELL VOLUME 94.6 fl (80.0-94.0); MEAN CORPUSCULAR HGB 30.8 pg (27.0-31.0); MEAN CORPUSCULAR HGB CONC 32.5 g/dl (33.0-37.0); MEAN PLATELET VOLUME 10.3 fl (9.6-12.3); MONO # 0.9 10*3/uL (0.1-1.0); MONO % 9.5 % (3.0-9.0); NEUT # 6.3 10*3/uL (2.3-7.9); NEUT % 64.9 % (47.0-73.0); PLATELET COUNT AUTOMATED 298 10*3/uL (130-400); RED BLOOD COUNT 4.78 10*6/uL (4.50-5.90); RED CELL DISTRI WIDTH 13.3 % (0-14.5); WHITE BLOOD COUNT 9.8 10*3/uL (4.8-10.8)
[2017-06-29 07:21] LABS: ALKALINE PHOSPHATASE 99 U/L (45-117); CHLORIDE 100 mmol/L (98-107); CREATININE 1.01 mg/dL (0.70-1.30); POTASSIUM 4.3 mmol/L (3.5-5.1); SGOT/AST 14 IU/L (3-35); SGPT/ALT 34 U/L (12-78); SODIUM 137 mmol/L (136-145); TOTAL PROTEIN 7.3 gm/dL (6.4-8.2)
[2017-06-29 07:25] LABS: BUN 24 mg/dl (7-24)
[2017-06-29 08:00] VITALS: BP 123/66
[2017-06-29] MEDS ORDERED: CEFUROXIME AXE250 MG PO (08:41)
[2017-06-29] MEDS ORDERED: LASIX40 MG PO (08:41)
[2017-06-29] MEDS ORDERED: TOPROL XL50 M1 PO (08:41)
[2017-06-29] MEDS ORDERED: DUONEB 3 MG/3 ML3 M1 NEB (08:44)
--- NOTE | 2017-06-29 09:10 | NUR ---
CALLED FAMILY MEMBER GRZEGORZ AT PT'S HOME AND SPOKE ATA AN INTERPRETEUR. GRZEGORZ STATES PT HAS A NEBULIZER BUT DOESNT USE IT. EXPLAINED THAT DR GREENE WANTS PT TO START USING IT AND NURSE WILL EXPLAIN WHEN THEY PICK PT UP.
--- NOTE | 2017-06-29 09:53 | NUR ---
Discharge instructions reviewed with patient/family. Patient receptive and verbalizes understanding. Follow-up care arranged. Written instructions given to patient/family. Pt transported to [facility] via wheelchair, accompanied [facility] staff. ORA KO
== END 2017-06-29 09:53 | disposition home or self-care (01) | DRG 871 ==
LOC: ED 09:08 → 5E 10:39 → EDHOLD 10:39 → 5E 10:57
PROVIDERS: Nurse Practitioner Family; ADMIT Internal Medicine
DX: A41.9 Sepsis, unspecified organism (principal); I50.31 Acute diastolic (congestive) heart failure; J44.0 Chronic obstructive pulmonary disease with (acute) lower respiratory infection; I48.2 Chronic atrial fibrillation; J44.1 Chronic obstructive pulmonary disease with (acute) exacerbation; J98.11 Atelectasis; H91.3 Deaf nonspeaking, not elsewhere classified; I11.0 Hypertensive heart disease with heart failure; J20.9 Acute bronchitis, unspecified; E78.2 Mixed hyperlipidemia; E11.9 Type 2 diabetes mellitus without complications; Z79.01 Long term (current) use of anticoagulants; Z91.14 Patient's other noncompliance with medication regimen; Z79.899 Other long term (current) drug therapy; Z79.4 Long term (current) use of insulin

== ENCOUNTER 2017-07-06 12:11 | Inpatient (IN) | payer MEDICARE ==
[2017-07-06] VITALS (9 sets, daily range): BP systolic 92–122; BP diastolic 65–87
[~2017-07-06] VITALS: Ht 177.8 cm; Wt 92.2 kg
--- NOTE | ~2017-07-06 | WRIGHTHP ---
[place], [place] PATIENT HISTORY AND PHYSICAL EXAM NAME: SHILPI FUENTES JR [facility] #: [id number] UNIT #: [id number] ROOM: 510 DOCTOR: ALICIA GREENE MD BIRTHDATE: [birth year] DOS: 07/06/2017 HISTORY OF PRESENT ILLNESS: This patient is 67 years old. The patient was seen in the Emergency Room. The patient was admitted to the hospital recently with acute diastolic CHF, went home, comes back, was seen by Dr. Knutson yesterday. On the way to Dr. Knutson's office, the patient states he had quite a lot of shortness of breath and he was unable to walk, had to stop multiple times. He was with his science interpreter when I saw him. He denied having any chest pains or palpitations, does not have any fever or chills. He states that he is taking his medications regularly including his breathing treatments. PAST MEDICAL HISTORY: Significant for: 1. Benign hypertension. 2. Chronic atrial fibrillation with long-term use of anticoagulants. 3. Type 2 diabetes mellitus, poorly controlled. 4. Chronic obstructive pulmonary disease. 5. History of deafness. 6. Noncompliance with poor insight to medical problems. MEDICATIONS: He is currently on Spiriva, Xarelto, propafenone, atorvastatin, metoprolol, diltiazem, losartan, aspirin, [place], potassium, Lasix, omeprazole, metformin, ammonium lactate. SOCIAL HISTORY: Nonsmoker, does not use any alcohol. Lives with his sister. PHYSICAL EXAMINATION: GENERAL: He is awake and alert and oriented. VITAL SIGNS: Blood pressure is 133/85, pulse of 99, respirations 18, temperature 97.3, no pulsus paradoxus heard on exam. LUNGS: Diminished breath sounds, scattered wheezes. HEART: Regular. ABDOMEN: Obese, soft, nontender. EXTREMITIES: Chronic lymphedema with stasis dermatitis. ASSESSMENT AND PLAN: 1. Acute diastolic congestive heart failure. Chest x-ray reviewed, boot-shaped heart was noted. The patient's echocardiogram shows pericardial effusion, but there is no clinical evidence of pericardial tamponade. The patient has been placed on high dose of diuretics. 2. Cardiology consultations obtained. 3. Chronic atrial fibrillation on medications, which are continued. 4. Type 2 diabetes mellitus. Check capillary blood sugars twice daily, coverage scale will be ordered. 5. Chronic obstructive pulmonary disease. Continue breathing treatments and Spiriva inhaler. He is morbidly obese and may have underlying obstructive sleep apnea and may benefit from an outpatient sleep study. [place], [place] PATIENT HISTORY AND PHYSICAL EXAM NAME: SHILPI FUENTES JR UNIT #: [id number] ROOM: [facility] DOCTOR: ALICIA GREENE MD BIRTHDATE: [birth year] ALICIA GREENE MD CM:HISPHYS:PATIENT HISTORY AND PHYSICAL EXAMINATION 1203 [id number] ALICIA GREENE MD 07/07/17 1224 interface
--- NOTE | ~2017-07-06 | PR ---
[place], [place] PROGRESS NOTE NAME: SHILPI FUENTES JR [facility] #: [id number] UNIT #: [id number] ROOM: 510 DOCTOR: ALICIA GREENE MD BIRTHDATE: [birth year] DOS: SUBJECTIVE: The patient is doing much better this morning. He states that he feels good. OBJECTIVE: VITAL SIGNS: Blood pressure is 133/85, pulse of 99, respirations 12, temperature 97.3. LUNGS: Diminished breath sounds. No wheezes heard this morning. HEART: Regular. ABDOMEN: Obese, soft. EXTREMITIES: Without any edema. ASSESSMENT AND PLAN: 1. Diastolic congestive heart failure, on IV diuretics. 2. Chronic obstructive pulmonary disease without any exacerbation. Continue breathing treatments and Spiriva. An exercise oximetry will be done today to see whether he would qualify for oxygen at home. 3. Chronic atrial fibrillation, controlled on meds with long-term use of anticoagulation. 4. Adult failure to thrive. Discussed with the patient about going to a rehab and he agreed. Social Service will be consulted. ALICIA GREENE MD CM:PNTRANS [phone] ALICIA GREENE MD 07/07/172152 interface
[~2017-07-06 12:11] MED LIST changes: +CEFUROXIME AXE250 MG PO; +DUONEB 3 MG/3 ML3 M1 NEB; +GERI-HYDROLAC222 ML T
[2017-07-06 12:31] LABS: BASO # 0.1 10*3/uL (0.0-0.1); BASO % 0.3 % (0.0-1.0); EOS # 0.4 10*3/uL (0.0-0.4); EOS % 2.2 % (1.0-4.0); HEMATOCRIT 42.8 % (42.0-52.0); HEMOGLOBIN 13.9 g/dl (14.0-18.0); LYMPH # 1.4 10*3/uL (1.3-4.4); LYMPH % 8.4 % (27.0-41.0); MEAN CELL VOLUME 94.1 fl (80.0-94.0); MEAN CORPUSCULAR HGB 30.5 pg (27.0-31.0); MEAN CORPUSCULAR HGB CONC 32.5 g/dl (33.0-37.0); MEAN PLATELET VOLUME 10.3 fl (9.6-12.3); MONO # 1.4 10*3/uL (0.1-1.0); MONO % 8.4 % (3.0-9.0); NEUT # 13.3 10*3/uL (2.3-7.9); NEUT % 80.3 % (47.0-73.0); PLATELET COUNT AUTOMATED 322 10*3/uL (130-400); RED BLOOD COUNT 4.55 10*6/uL (4.50-5.90); WHITE BLOOD COUNT 16.6 10*3/uL (4.8-10.8)
[2017-07-06 12:40] LABS: ACT PARTIAL THROMBO TIME 36.8 SECONDS (20.8-31.5); INTERNATIONAL NORM RATIO 1.4 (2.0-3.5)
[2017-07-06 12:47] LABS: ALBUMIN 3.3 gm/dl (3.1-4.5); ALKALINE PHOSPHATASE 104 U/L (45-117); BUN 37 mg/dl (7-24); CHLORIDE 104 mmol/L (98-107); CREATININE 1.32 mg/dL (0.70-1.30); MAGNESIUM 2.2 mg/dL (1.5-2.1); POTASSIUM 4.1 mmol/L (3.5-5.1); SGOT/AST 46 IU/L (3-35); SGPT/ALT 69 U/L (12-78); SODIUM 140 mmol/L (136-145); TOTAL PROTEIN 7.3 gm/dL (6.4-8.2)
[2017-07-06 12:52] LABS: TROPONIN I < 0.015 ng/ml (<0.045)
--- NOTE | 2017-07-06 14:28 | NUR ---
SOB BETTER SINCE AEROSOL. ROSALES ROSS RN
--- NOTE | 2017-07-06 16:14 | NUR ---
PT ACCEPTED AT [facility]. WAITING FOR AMBULANCE TRANSPORT.
--- NOTE | 2017-07-06 19:30 | NUR ---
ORDERS RECEIVED AND VERFIED WITH DOCTOR GREENE.
--- NOTE | 2017-07-06 19:30 | NUR ---
A 67, admitted to , under the services of ALICIA Holbrook MD with a diagnosis of CHF. Chief complaint is CHF. Patient arrived via bed from ER. Monitor applied. Initial assessment completed. Vital signs taken and recorded. ALICIA HOLBROOK MD notified of admission to the unit. Orders received. See assessment for past medical history, medications and allergies. Patient and/or family oriented to unit. [facility] Clothing/patient valuable form completed. JULIO SQUIRES
--- NOTE | 2017-07-06 19:30 | NUR ---
ASSUMED CARE OF PT AT THIS TIME. RESPS EASY AND NONLABORED WITH NO S/S OF DISTRESS CALL LIGHT WITH IN REACH
[2017-07-07] VITALS: BP 128/72
--- NOTE | 2017-07-07 03:22 | NUR ---
RESTING IN BED WITH EYES CLOSED. NO SIGNS OR SYMPTOMS OF DISTRESS NOTED. RESTED WELL THROUGH THE NIGHT. NO COMPLAINTS OF PAIN OR DISCOMFORT NOTED. WILL CONTINUE TO MONITOR. CALL LIGHT IN REACH.
--- NOTE | 2017-07-07 08:30 | NUR ---
Industrial Machinery Mechanic in to talk to patient. Patient states lives at HOME with NEPHEW. SISTER IS DAIRY FEED SALES CONSULTANT. There are 5 steps in the home. Physician: DR GREENE Pharmacy: Home health services: [facility] 3X WEEK. NOT SURE CO NAME Patient's level of ADLs: MINIMAL ASSIST Patient has working utilities: YES DME: Follow-up physician's appointment after d/c: PREFERS FAMILY MAKE HIS APPT Does patient want to access PORTAL?: Discharge plan . FANNY JIMENEZ DR HAS TALKED TO PT ABOUT SNF STAY AND SAYS HE AGREES. DC MOSS BLEACHER WILL SEE WHAT FACILITY PT WANTS.
[2017-07-07 09:59] VITALS: BP 133/85
--- NOTE | 2017-07-07 10:17 | NUR ---
PATIENT ARRIVED ON FLOOR FROM ER NO CO AT THIS TIME ORIENTED TO FLOOR AND ROOM AT BEDSIDE
--- NOTE | 2017-07-07 10:22 | NUR ---
PHYSICAL THERAPY PAtient evaluated on 5, full evaluation to follow. Continue with PT as per plan of care with fall, 02 and acute debility with poor activity tolerance precautions. May require SNF for impaired mobility. PAtient is moderate complexity via chart review, tests and evaluation: [id number]. Thank you for this referral. Lyla Manrique,PT
--- NOTE | 2017-07-07 10:23 | NUR ---
Occupational Therapy evaluation completed this date on 5 with full eval to follow. Precautions include fall risk, SOB with minimal exertion, new O2 @3 LPM, difficulty breathing after x4 sit to stands, moderate complexity [id number]. Patient is deaf and can lip read some but primarily uses a appliquer to assist with medical education. Recommend OT per POC and SNF upon d/c to enable safe return home with family at [facility]. Thank you for this referral. Cecy Thomas OTR/l
--- NOTE | 2017-07-07 11:28 | NUR ---
Dr. Castle requesting snf placement for this patient and stated he agreed to the [facility] in [facility]. Contacted [facility] and faxed referral, waiting on accpetance.
--- NOTE | 2017-07-07 11:36 | NUR ---
POX CHECKED PER DRS. ORDER AT REST AND WITH AMBULATION. ON RA AT REST PT'S SPO2 WAS 90%, HR 62, RR 24, BP 138/84. PT. WAS UNABLE TO MAINTAIN SPO2 ON RA WITH AMBULATION. AFTER WALKING APPROX. 15FT THE PT'S SPO2 DROPPED TO 87%, HR 140, RR 32 WITH INCREASED WOB, C/O SOB, AND AUDIBLE EXP. WHEEZES. O2 APPLIED AT 2L SPO2 REAMAINED AT 88% WAS INCREASED TO 3L AND SPO2 IMPROVED TO 94% WITH AMBULATION IN HALLWAY. RESTING VITALS WERE BP 140/78, HR 118, RR24, POX 94% ON 3L.
--- NOTE | 2017-07-07 12:18 | NUR ---
CALLED DR JONES CONCERNING PATIENTS BLOOD PRESSURE CINTINUING TO DROP. DR CASTILLO IS WAITING TO SEE WHAT THE RSULTS OF CATSCAN SHOW AND WILL CONTACT NURSE WHEN RESULTS ARE IN
--- NOTE | 2017-07-07 12:49 | NUR ---
PHYSICAL THERAPY Mr Rojo seen this PM X 2, Pt having his lunch. When i came back 4 Dr's were in checking Jasmeet and his BP. I ask the Dr if i could ambulate Mr West and he said no not now and went to the nurses station. JOHNATHON BARBOZA HOT PATCHER.
--- NOTE | 2017-07-07 13:55 | NUR ---
REC'D CALL FROM GRZEGORZ AT [facility]. PT HAS THEIR SERVICES AND WILL NEED RESUME ORDER UPON DC IF HE DOESNT GO TO SNF. PER GRZEGORZ, HAS NURSE AND AIDS.
--- NOTE | 2017-07-07 15:55 | NUR ---
Discharge instructions reviewed with patient/family. Patient receptive and verbalizes understanding. Follow-up care arranged. Written instructions given to patient/family. JOHANNA GAMBINO
[2017-07-08 08:13] LABS: RHEUMATOID ARTHRITIS FACTOR 12.6 IU/mL (0.0-13.9)
--- NOTE | 2017-07-10 07:48 | NUR ---
PHYSICAL THERAPY CO-SIGN I approve of the Phyical Therapy notes written above. YOUNG REDDING PT
== END 2017-07-07 15:55 | disposition short-term general hospital (02) | DRG 871 ==
LOC: ED 12:11 → EDHOLD 16:21 → 5E 16:21
PROVIDERS: Emergency Medicine; Family Medicine; ADMIT Internal Medicine
DX: A41.9 Sepsis, unspecified organism (principal); J18.9 Pneumonia, unspecified organism; I50.31 Acute diastolic (congestive) heart failure; I31.3 Pericardial effusion (noninflammatory); E11.620 Type 2 diabetes mellitus with diabetic dermatitis; I11.0 Hypertensive heart disease with heart failure; Z68.42 Body mass index [BMI] 45.0-49.9, adult; J44.0 Chronic obstructive pulmonary disease with (acute) lower respiratory infection; G47.33 Obstructive sleep apnea (adult) (pediatric); E66.01 Morbid (severe) obesity due to excess calories; R62.7 Adult failure to thrive; I48.2 Chronic atrial fibrillation; H91.3 Deaf nonspeaking, not elsewhere classified; K21.9 Gastro-esophageal reflux disease without esophagitis; E78.2 Mixed hyperlipidemia; I87.2 Venous insufficiency (chronic) (peripheral); Z79.899 Other long term (current) drug therapy; Z79.82 Long term (current) use of aspirin; Z82.49 Family history of ischemic heart disease and other diseases of the circulatory system; Z83.3 Family history of diabetes mellitus; Z79.84 Long term (current) use of oral hypoglycemic drugs

== ENCOUNTER 2017-07-16 10:30 | Inpatient (IN) | payer MEDICARE ==
[~2017-07-16] VITALS: Ht 167.6 cm; Wt 128.4 kg
--- NOTE | ~2017-07-16 | PR ---
[place], [place] PROGRESS NOTE NAME: SHILPI FUENTES JR [facility] #: [id number] UNIT #: [id number] ROOM: 531 DOCTOR: RAND RITTER MD BIRTHDATE: [birth year] DOS: 07/18/2017 SUBJECTIVE: The patient had his taya removed and the wound appears superficial. Surgery is following. OBJECTIVE: VITAL SIGNS: Blood pressure 126/98, heart rate of 76 beats per minute, breathing 18 times per minute, temperature 98 degrees Fahrenheit. GENERAL APPEARANCE: The patient is alert and oriented x 3, in no visible distress, obese. HEENT AND NECK: Exam within normal limits. CARDIOVASCULAR SYSTEM: Heart rate is regular in rate and rhythm. S1 and S2 normally audible. LUNGS: Clear to auscultation. ABDOMEN: Soft, nontender. No obvious organomegaly. Bowel sounds are present. EXTREMITIES: Without significant cyanosis or edema. IMPRESSION: 1. The patient with surgical wound site infection after removal of taya. Wound appears superficial and is being treated. His blood cultures have been negative, but wound cultures are still pending. 2. The patient has a mild leukocytosis, 11,800 white cell count. 3. Acute diastolic type congestive heart failure with pleural effusion and the patient is followed by Dr. Knutson, his flour mixer helper. 4. Acute exacerbation of chronic obstructive pulmonary disease, being treated and followed. The patient remains on oxygen and bronchodilators. 5. Type 2 diabetes mellitus. The patient is on no concentrated sweet diet. Blood sugars are well controlled. 6. Hearing and speech impairment. RAND RITTER MD CM:PNTRANS [phone] RAND RITTER MD 07/18/17 2339 interface
--- NOTE | ~2017-07-16 | PR ---
[place], [place] PROGRESS NOTE NAME: SHILPI FUENTES JR UNIT #: [id number] ROOM: 531 DOCTOR: AUDREY VELIZ MD BIRTHDATE: [birth year] DOS: 07/20/2017 CARDIOLOGY PROGRESS NOTE SUBJECTIVE: The patient was seen at his bedside today, 07/20/2017, for followup of his atrial fibrillation and recent episode of pericarditis with tamponade. The patient is now comfortable. He is status post creation of a pericardial window and no longer has any signs of pericarditis or tamponade. Today, he did have a thoracentesis and fluid was removed from his chest. The results are pending. A wound culture from 07/17/2017 unfortunately is growing Staphylococcus aureus, which is methicillin resistant. The Gram stain, however, showed no white cells and only a few gram-positive cocci in pairs and clusters. This may therefore represent a very superficial colonization rather than a deep wound infection. We will await the comments from Infectious Disease regarding this finding. PHYSICAL EXAMINATION: VITAL SIGNS: Today, pulse is 67 and irregularly irregular, blood pressure was 84/53. He is afebrile. NECK: Supple. He has no jugular distention. Carotids are full. LUNGS: Respirations are unlabored. His chest is clear. HEART: Has an irregularly irregular rhythm. ABDOMEN: Obese, but otherwise benign. EXTREMITIES: Show chronic peau d'orange skin of the ankles. IMPRESSION: 1. Persistent atrial fibrillation. 2. Diastolic congestive heart failure. 3. Recent pleural pericarditis with tamponade. This may have been related to a viral infection. 4. Staphylococcus aureus (methicillin-resistant) growing from the patient's pericardotomy wound. PLAN: We will be discussing this with the Infectious Disease Service. For now, I will decrease his rate slowing medications further and probably simply stop his diltiazem. He will continue metoprolol and we may need to decrease the dose of that as well. We will continue rivaroxaban. I thank Dr. Marinelli for asking our advice regarding his management. [place], [place] PROGRESS NOTE NAME: SHILPI FUENTES JR UNIT #: [id number] ROOM: 531 DOCTOR: AUDREY VELIZ MD BIRTHDATE: [birth year] AUDREY VELIZ MD CM:PNHERMELINDA [phone] AUDREY VELIZ MD 07/21/17254 interface
--- NOTE | ~2017-07-16 | CON ---
[place], [place] REPORT OF CONSULTATION NAME: SHILPI FUENTES JR [facility] #: [id number] UNIT #: [id number] ROOM: 531 DOCTOR: AUDREY VELIZ MD BIRTHDATE: [birth year] DOS: REASON FOR CONSULTATION: Dyspnea and pleural effusions. 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 He recently presented to the hospital with atrial fibrillation, hypertension and diastolic dysfunction. He is also known to have hyperlipidemia, type 2 diabetes mellitus, COPD, and obesity. The patient initially presented a month or two ago with newly diagnosed atrial fibrillation and heart failure. Attempts were made to cardiovert him, but were not successful. He was anticoagulated and placed on antiarrhythmic medications with plans to cardiovert him later. In the interim, he was hospitalized with a viral syndrome. He then presented to the hospital around the middle part of June with increased dyspnea. An echocardiogram showed a modest pericardial effusion, but the patient did develop hypotension, tachycardia, and signs of tamponade. He was therefore transferred to [facility] where Dr. Maxx Alvarez did a pericardial window on 07/08/2017. 600 mL of bloody fluid was removed and the patient's hemodynamics improved. He was observed at [facility] until 07/12/2017 and then discharged to home. The patient came into the Emergency Room today because he has noticed some drainage from his pericardial window incision. In addition, he has had some feverishness and sweating. He does have some pain around the incision site. A CAT scan of the chest showed a persistent left pleural effusion and therefore he was hospitalized with probable diastolic heart failure and possible incisional infection. The patient was given one dose of ceftriaxone in the Emergency Room. He was also given furosemide intravenously and we were asked to see him. Currently, he states that he is not breathless, but he does feel some pain at the incision site and he is diaphoretic. Otherwise, it is very difficult to communicate with him because of his language problems. PAST MEDICAL HISTORY: Includes 1. Congenital deafness. 2. Recent onset atrial fibrillation. 3. Diastolic congestive heart failure. 4. Echocardiogram 06/05/2017 showed normal left ventricular size, wall thickness and systolic function. Diastole could not be fully assessed. The left atrial size was normal. There was no significant abnormality of valve function. 5. Echocardiogram on 07/06/2017 showed left ventricular size was normal with normal left ventricular wall thickness and segmental wall motion. Left ventricular systolic function was normal. There was no obvious abnormality of valve function. There was irregular thickening of the visceral pericardium with a moderate circumferential pericardial effusion. There was no evidence for tamponade on the time of the echo, however, later in the day after diuresis, the patient did drop his blood pressure and increase his heart rate. 6. Myocardial perfusion imaging study 06/05/2017, normal myocardial perfusion, no evidence for scar. No transient cavity dilation, ejection fraction 68%. [place], [place] REPORT OF CONSULTATION NAME: SHILPI FUENTES JR UNIT #: [id number] ROOM: 531 DOCTOR: AUDREY VELIZ MD BIRTHDATE: [birth year] MEDICATIONS: Prior to admission, at time of his discharge from the hospital recently, his medications were oxycodone with acetaminophen every 6 hours as needed, metoprolol 25 mg every 6 hours, cetirizine 10 mg daily, metformin 1000 mg twice a day, losartan 50 mg daily, atorvastatin 10 mg daily, furosemide 40 mg p.o. twice a day, Micro-K 10 mEq twice a day, Spiriva 18 mcg inhaled daily, albuterol by metered dose inhaler p.r.n. and [place] 3 fish oil daily. ALLERGIES: The patient has no known drug allergies. REVIEW OF SYSTEMS: Impossible due to the patient's language barriers. This will be reviewed subsequently once an hardness tester is available. SOCIAL HISTORY: The patient is unmarried and lives with family. He does not smoke or consume alcohol. PHYSICAL EXAMINATION: GENERAL: The patient is an obese white male who is awake, alert and oriented. VITAL SIGNS: Pulse is 100 and irregularly irregular. Blood pressure is 119/73, he is afebrile. He weighs 122.2 kg and has a body mass index of 43.5. HEENT: Normocephalic, atraumatic. Extraocular muscles are intact. Sclerae are clear. Pupils are round and react to light. Oral mucosa is moist. Tongue is midline. NECK: Supple. He has no jugular distention. Carotids are full. I heard no bruits. He had no neck or supraclavicular masses and no thyromegaly. LUNGS: Respirations were unlabored at rest. He did have decreased breath sounds with dullness at the left base. The right lung was clear. He had no presacral edema or chest wall tenderness. CARDIOVASCULAR: His heart had an irregularly irregular rhythm. I did not hear any rubs or gallops. There were no obvious murmurs. The PMI was not displaced. He does have a dressing over his lower sternum with dark blood tinged discharge on it. ABDOMEN: Soft and normoactive without masses, organomegaly or bruits. EXTREMITIES: Showed 1+ edema bilaterally. Peripheral pulses were palpable in the feet. LABORATORY DATA: Electrocardiogram shows atrial fibrillation with a controlled ventricular response and nonspecific T-wave changes. Hemoglobin is 13.8 with hematocrit 42.5. There are 11,800 white cells and 361,000 platelets. Sodium is 139, potassium 4.4, BUN 20, creatinine 1.02. IMPRESSION: 1. Acute on chronic diastolic congestive heart failure. 2. Atrial fibrillation with controlled ventricular response. 3. Recent acute pericarditis with early tamponade. The patient did undergo placement of a pericardial window. 4. Discharge from the pericardial window site with diaphoresis and some pain. There is concern that this may represent an infection in the incision. PLAN: We will obtain blood cultures. For now, we will continue him on [place], [place] REPORT OF CONSULTATION NAME: SHILPI FUENTES JR UNIT #: [id number] ROOM: 531 DOCTOR: AUDREY VELIZ MD BIRTHDATE: [birth year] anticoagulation therapy with rivaroxaban can along with propafenone. We will probably decide later during this admission whether or not he should undergo a cardioversion. Prior to that; however, I would strongly suggest that he be seen by the Infectious Disease consultants to help determine if antibiotic therapy for his possible infection is appropriate. I thank Dr. Marinelli for asking our advice regarding his care. AUDREY VELIZ MD CM:CONSTR:REPORT OF CONSULTATION 05 07/16/17 2146 interface
--- NOTE | ~2017-07-16 | PR ---
[place], [place] PROGRESS NOTE NAME: SHILPI FUENTES JR [facility] #: [id number] UNIT #: [id number] ROOM: 531 DOCTOR: RAND RITTER MD BIRTHDATE: [birth year] DOS: 07/17/2017 PHYSICAL EXAMINATION: VITAL SIGNS: Blood pressure 140/62, heart rate 67 beats per minute, breathing 20 times per minute, temperature 98 degrees Fahrenheit. GENERAL APPEARANCE: The patient is awake, alert, in no visible distress. Obesity. HEENT AND NECK: Exam within normal limits. CARDIOVASCULAR SYSTEM: Heart rate is regular in rate and rhythm. S1 and S2 normally audible. LUNGS: Clear to auscultation. ABDOMEN: Soft, nontender. No obvious organomegaly. Bowel sounds are present. EXTREMITIES: Without significant cyanosis or edema. He does have chronic skin changes in his legs. The patient has discharge from the recent incision for pericardial window placement and taya are still in place and some redness around the incision. IMPRESSION: 1. Patient with infected incision site in the epigastric area for which he is being seen by Surgery and taya will be removed and wound explored. 2. Acute diastolic type congestive heart failure and pleural effusion which has increased. Dr. Knutson, the typer, is following. 3. Acute exacerbation of chronic obstructive pulmonary disease and some shortness of breath that is being treated. Patient on oxygen and bronchodilators. 4. Chronic atrial fibrillation with controlled heart rates. Patient anticoagulated with Xarelto. 5. Type 2 diabetes mellitus. Patient kept on a no concentrated sweet diet and his blood sugars are well controlled. 6. Poor compliance with treatment and poor insight into medical issues. RAND RITTER MD CM:PNTRANS [id number] RAND RITTER MD 07/17/17 2338 interface
--- NOTE | ~2017-07-16 | PR ---
[place], [place] PROGRESS NOTE [facility] [id number] UN[facility] #: [id number] ROOM: 531 DOCTOR: RAND RITTER MD BIRTHDATE: [birth year] DOS: 07/19/2017 SUBJECTIVE: The patient doing about the same. No new complaints. OBJECTIVE: VITAL SIGNS: Blood pressure 122/64, heart rate 77 beats per minute, breathing 20 times per minute, temp afebrile. GENERAL APPEARANCE: The patient is alert and oriented x 3, in no visible distress. HEENT AND NECK: Exam within normal limits. CARDIOVASCULAR SYSTEM: Heart rate is regular in rate and rhythm. S1 and S2 normally audible. LUNGS: Clear to auscultation. ABDOMEN: Soft, nontender. No obvious organomegaly. Bowel sounds are present. The patient has an open shallow wound in the epigastric area from recent surgery for pericardial window. EXTREMITIES: Without significant cyanosis or edema. LABORATORY DATA: Wound culture is growing heavy gram-positive cocci. ____ baseline. Normal serum electrolytes. ASSESSMENT AND PLAN: 1. Type 2 diabetes mellitus. The patient on no concentrated sweet diet. Blood sugars are being monitored and are well controlled. 2. Hearing and speech impairment. 3. Diastolic type acute congestive heart failure, being followed by Cardiology. 4. Acute exacerbation of chronic obstructive pulmonary disease. The patient being followed by Dr. So and being treated with bronchodilators. RAND RITTER MD CM:PNTRANS [id number] RAND RITTER MD 07/19/17 1443 interface
--- NOTE | ~2017-07-16 | DS ---
[place], [place] DISCHARGE SUMMARY NAME: SHILPI FUENTES JR [facility] #: [id number] UNIT #: [id number] ROOM: 531 DOCTOR: RAND RITTER MD BIRTHDATE: [birth year] DOS: 07/20/2017 DISCHARGE DIAGNOSES: 1. Wound infection at surgical site for pericardial window, growing methicillin-resistant Staphylococcus aureus from wound cultures. 2. Left pleural effusion, status post thoracentesis, 320 mL of fluid removed. 3. Type 2 diabetes mellitus. 4. Hearing and speech impairment. 5. Diastolic type acute congestive heart failure, treated. 6. Acute exacerbation of chronic obstructive pulmonary disease, improved with treatment. 7. Obesity. 8. Poor compliance with treatment and poor insight into medical issues. 9. Benign essential hypertension. 10. Mixed hyperlipidemia. 11. Chronic stasis dermatitis involving skin of both legs. HOSPITAL COURSE: The patient presented to the Emergency Department with increased shortness of breath for a few weeks and also drainage from his surgical incision site where taya were still in place. The patient was found to have infected surgical incision area. The taya were removed and the cultures grew MRSA, for which he was started on IV vancomycin and Infectious Disease specialist recommended this treatment for 2 more weeks. Acute diastolic type CHF. The patient was diuresed and followed by Dr. Knutson, his extension clerk. Echocardiogram showed 55% left ventricular ejection fraction with some diastolic dysfunction. The patient with left pleural effusion, 320 mL of fluid was removed via thoracentesis and Dr. So, the rn integrity followed him. Acute exacerbation of underlying COPD, treated with bronchodilators and corticosteroids, oxygen, and improved. LABORATORY DATA: Wound cultures as mentioned above. Blood gases showed baseline pH of 7.4. Blood cultures were negative. Wound cultures grew MRSA. DISCHARGE MANAGEMENT: Diltiazem CD 120 mg a day, furosemide 40 mg b.i.d., tramadol 50 mg q.i.d. p.r.n. for pain, metoprolol 150 mg daily, losartan 50 mg a day, cetirizine 10 mg a day, omeprazole 20 mg a day, propafenone 225 mg b.i.d., Lipitor 10 mg a day, Xarelto 20 mg daily, potassium chloride 10 mEq b.i.d., breathing treatment with DuoNeb every 4 hours, metformin 1000 mg b.i.d., IV vancomycin 1500 mg b.i.d. for 2 weeks. Check peal trough levels with the third dose and adjust vancomycin as needed. Local wound care. [place], [place] DISCHARGE SUMMARY NAME: SHILPI FUENTES JR UNIT #: [id number] ROOM: 531 DOCTOR: RAND RITTER MD BIRTHDATE: [birth year] RAND RITTER MD CM:DIMAS [phone] RAND RITTER MD 07/20/171856 interface
--- NOTE | ~2017-07-16 | PR ---
[place], [place] PROGRESS NOTE NAME: SHILPI FUENTES JR UNIT #: [id number] ROOM: 531 DOCTOR: COLBY KEE MD BIRTHDATE: [birth year] DOS: 07/20/2017 SUBJECTIVE: He has been noted comfortable at this time, sitting on the chair. He reported partial reduction in shortness breath. He does not have any other new complaints. He was continued on vancomycin. The patient with suspected infection of the wound, which was confirmed today to be MRSA. He has not been noted any symptoms of chest pain or hemoptysis. OBJECTIVE: VITAL SIGNS: Normal temperature, respiratory rate 20, heart rate 58, blood pressure is 92/53-132/78. Pulse oxygen saturation on 2 liters nasal cannula 98% saturation recorded. HEENT: Examination shows no acute change. NECK: Supple. CARDIOVASCULAR: S1, S2 audible. LUNGS: Examination of the patient was noted with decreased breath sounds in the left lower lung as previously with questionable crackles. There was no wheezing. ABDOMEN: Soft, obese, nontender. EXTREMITIES: Shows edema. LABORATORY DATA: Culture of the wound of chest noted to be MRSA. The vancomycin trough level today were noted 16.3, which is therapeutic. IMPRESSION: 1. Chest wound infection with methicillin-resistant Staphylococcus aureus with previous pericardial window. 2. The patient with pleural fluid diagnosed on the left side. Will be getting thoracentesis. 3. The patient with chronic anticoagulation, currently noted Xarelto in hold for thoracentesis to be done by the radiologist today with ultrasound guidance. Other supportive therapy, plan and management and care. Usual treatment, other supportive plan of care. Additional treatment changes would be ordered based on further assessment. [place], [place] PROGRESS NOTE NAME: SHILPI FUENTES JR UNIT #: [id number] ROOM: 531 DOCTOR: COLBY KEE MD BIRTHDATE: [birth year] COLBY ROTHMAN MD CM:PNTRANS [phone] COLBY NICHOLSON MD 07/21/17 0023 interface
--- NOTE | ~2017-07-16 | PR ---
[place], [place] PROGRESS NOTE NAME: SHILPI FUENTES JR [facility] #: [id number] UNIT #: [id number] ROOM: 531 DOCTOR: STEPHAN NICHOLSON MDCOLBY BIRTHDATE: [birth year] DOS: 07/21/2017 SUBJECTIVE: The patient underwent thoracentesis, which was done by the radiologist successfully yesterday. 320 mL of pleural fluid was removed for patient and sent for the appropriate testing. Chest x-ray was also completed for the patient after the thoracentesis, which shows significant improvement in the lung without any evidence of pneumothorax. Right lung appeared to be clear. Cardiomegaly was seen. OBJECTIVE: VITAL SIGNS: For the patient which has been recorded shows normal temperature, respiratory rate 20, heart rate 92, blood pressure 112/47. The pulse oxygen saturation of the patient recorded as 96% on 2 liters nasal cannula. HEENT: Chronic obesity. NECK: Supple. Head was atraumatic. CARDIOVASCULAR: S1, S2 audible. LUNGS: The patient was noted with improvement in air entry of the lungs bilaterally. There were no wheezing or crackles heard at the present time. ABDOMEN: Soft, nontender. LABORATORY DATA: BUN and creatinine were noted normal today. CRP mildly elevated at 2.28. Pleural fluid analysis of yesterday, the patient was noted with total of 240 WBC, 6000 RBCs with various differentials noted for this patient including 10% mesothelial cells. The total protein noted 3.2, glucose 131. The LDH of 96, cholesterol less than 50. Albumin 1.9. The pH was noted as 7.62. The findings were noted consistent with a transudative effusion. IMPRESSION: 1. The patient with transudative effusion, which has been treated for the patient with thoracentesis, may be related to underlying cardiac abnormality for the patient, congestive heart failure would be the most likely cause. The culture of the patient was pending. Cytology was pending. 2. Recent pericardial effusion, status post drainage, which were noted negative for malignancy as well at [facility]. 3. Pericardial window for this patient at the site of infection noted with methicillin-resistant Staphylococcus aureus being treated with the antibiotics. 4. Chronic obesity. PLAN OF TREATMENT: Monitor culture results. Continue medical management of the patient including the monitoring of the cytology of pleural fluid. Other supportive therapy, plan of management care as in progress. Usual care, other treatment and therapies. [place], [place] PROGRESS NOTE NAME: G[facility] FORTUNESHILPI Layla [id number] UNIT #: [id number] ROOM: 531 DOCTOR: COLBY KEE MD BIRTHDATE: [birth year] COLBY ROTHMAN MD CM:PNTRANS [phone] COLBY NICHOLSON MD 07/22/17 0024 interface
--- NOTE | ~2017-07-16 | WRIGHTHP ---
[place], [place] PATIENT HISTORY AND PHYSICAL EXAM NAME: SHILPI FUENTES JR [facility] #: [id number] UNIT #: [id number] ROOM: 531 DOCTOR: RAND RITTER MD BIRTHDATE: [birth year] DOS: 07/16/2017 HISTORY OF PRESENT ILLNESS: The patient is a 67-year-old gentleman with a past medical history of: 1. Recent pericardial window for pericardial effusion with an epigastric surgical incision with taya in place and some redness around them and wound discharge. 2. Obesity. 3. Diastolic type congestive heart failure. 4. Chronic obstructive pulmonary disease. 5. Chronic atrial fibrillation. The patient anticoagulated with Xarelto. 6. Type 2 diabetes mellitus. 7. Poor compliance with an insight into medical problems. 8. The patient with hearing impairment and speech impairment. 9. Benign essential hypertension0. 10. Mixed hyperlipidemia. 11. Chronic stasis dermatitis in both legs. The patient presented to the Emergency Department at [facility] with increasing shortness of breath for a few weeks and he also has pain at the incision site where he had a pericardial window surgery and taya are in place with some redness around the taya and some drainage. The patient's bushel girl is present with him. No nausea, vomiting, diarrhea or constipation. No other GI or urinary symptoms. REVIEW OF SYSTEMS: LUNGS: Some increasing shortness of breath. GASTROINTESTINAL: No nausea, vomiting, diarrhea or constipation. CARDIOVASCULAR: No chest pains, but some pain at the incision site below his sternum. SOCIAL HISTORY: The patient has history of nicotine abuse. Denies any alcohol or drug abuse. FAMILY HISTORY: Noncontributory. MEDICATIONS: Metoprolol, losartan, diltiazem, cetirizine, omeprazole, Xifaxan, Rythmol, Lipitor, potassium, furosemide, metoprolol. ALLERGIES: No known drug allergies. PHYSICAL EXAMINATION: GENERAL: Alert and oriented, poor historian, in no visible distress, morbidly obese. HEENT AND NECK: Extraocular movements are intact. Sclerae are anicteric. Oral mucosa is moist and clean. No obvious facial weakness. Neck is supple without any lymphadenopathy. No thyromegaly. No JVD. No carotid arterial bruits. LUNGS: Clear to auscultation. No wheezing. No rhonchi. CARDIOVASCULAR SYSTEM: Heart rate is regular in rate and rhythm. S1 and S2 [place], [place] PATIENT HISTORY AND PHYSICAL EXAM NAME: SHILPI FUENTES JR [facility] #: [id number] UNIT #: [id number] ROOM: 531 DOCTOR: RAND RITTER MD BIRTHDATE: [birth year] normally audible. No significant murmur or any other abnormal cardiac sounds. ABDOMEN: Taya in epigastric area, measuring about 5 cm with some surrounding redness and wound discharge. EXTREMITIES: Leg exam reveals chronic stasis dermatitis and thickening and pigmentation of the skin on both legs. CENTRAL NERVOUS SYSTEM: Alert and oriented x 3. Cranial nerves II-XII are intact. Speech is normal. The patient is able to move all extremities. Normal muscle strength. Deep tendon reflexes are equal on both sides. Plantars were downgoing. LABORATORY DATA: CT scan of the abdomen and pelvis shows resolved pericardial effusion, but patient has left pericardial effusion which appears to be increased. Normal serum electrolytes and lactic acid level and troponin level. IMPRESSION: 1. The patient with acute diastolic type congestive heart failure and pleural effusion. Dr. Knutson, his vacuum metalizing supervisor has been consulted and an echocardiogram has been ordered. 2. Acute exacerbation of chronic obstructive pulmonary disease and some shortness of breath. He will be followed and treated. The patient on oxygen. 3. Chronic atrial fibrillation. The patient to be anticoagulated again with Xarelto. 4. Type 2 diabetes mellitus. The patient kept on no concentrated sweet diet and sugars to be treated accordingly. 5. Poor compliance with medical problems which makes issues more difficult to treat. He has poor understanding of medical issues and treatment. 6. Surgical incision infection in the epigastric area. His taya may need to be removed. I will let infectious disease specialist handle this patient. RAND RITTER MD CM:HISPHYS:PATIENT HISTORY AND PHYSICAL EXAMINATION 18 21 RAND RITTER MD 07/16/171919 interface
--- NOTE | ~2017-07-16 | CON ---
[place], [place] REPORT OF CONSULTATION NAME: [facility]ENTES JR [id number] UNIT #: [id number] ROOM: 531 DOCTOR: COLBY KEE MD BIRTHDATE: [birth year] DOS: 07/19/2017 CONSULTATION REQUESTED BY: Dr. Marinelli. REASON FOR CONSULTATION: Assessment of the pleural fluid. The patient was noted with severe hearing impairment. The patient is unable to communicate by talking. The communication was noted extremely limited for this patient because of verbal communication. Some medication has been done by writing a few sentences during the consultation. The other history has been essentially obtained from review of the medical record, documentation by other physicians, which has been done on this admission. HISTORY OF PRESENT ILLNESS: The patient is a 67-year-old white male who has been admitted to this hospital on of this month. The patient has been hospitalized under care of Dr. Marinelli. He was admitted on of this month. The patient reported symptoms of having increased shortness of breath, which has been occurring for this patient gradually. He has been known with past history of atrial fibrillation, hypertension and diastolic dysfunction. He had a chest x-ray done and noted with increased shortness of breath. Shortness of breath has been noted gradually increased. The patient has been known to the Dr. Knutson who is in Cardiology Services. The patient has been previously anticoagulated with antiarrhythmic drugs and electrical cardioversion was also done later on. The echocardiogram was noted with pericardial effusion. The patient has been admitted at [facility] and underwent pericardial window on 07/08/2017. A 600 mL of bloody fluid were removed with improvement in hemodynamic stability. The patient discharged home on 07/12/2017 and came back to the Emergency Room and readmitted to [facility] because of shortness of breath. The patient was noted with symptoms of some fever with diaphoresis. He also does ____ describe some pain in the incision site of the previous pericardial window. The patient has been noted with pleural fluid in the left side previously, which were thought to be related to the possibility of diastolic dysfunction. He denies any symptoms of cough. He denies any acute significant pain. Denies symptoms of wheezing. Shortness of breath occurs with mild to moderate exertion, not noted at rest. REVIEW OF SYSTEMS: Could not be completed for this patient because difficulty of communication verbally and limitation because of severe hearing impairment. PAST MEDICAL HISTORY: 1. History of congenital deafness. 2. Atrial fibrillation. 3. Diastolic dysfunction, congestive heart failure. 4. History of pericardial effusion and drainage for this patient probably nonmalignant; however, the details for this patient were not known to me at the present time. 5. History of chronic obesity. 6. History of chronic obstructive pulmonary disease and bronchial asthma. SOCIAL HISTORY: The patient is not , does not have any children. He [place], [place] REPORT OF CONSULTATION NAME: SHILPI FUENTES JR UNIT #: [id number] ROOM: 531 DOCTOR: STEPHAN NICHOLSON MD,COLBY BIRTHDATE: [birth year] lives with his sister at home. He has not been noted any tobacco use or any illicit drugs or any occupation related pulmonary exposure. FAMILY HISTORY: Noted unknown. PAST SURGICAL HISTORY: 1. Described as a pericardial window drainage in [facility] for 07/08/2017. 2. Lower back surgery. MEDICATIONS: The current administered medication noted as use of; 1. Lasix 80 mg p.o. b.i.d. 2. Tramadol 50 mg q.6 h. p.r.n. for pain. 3. Metoprolol succinate 150 mg daily. 4. Losartan 50 mg daily. 5. Cardizem-CD 240 mg daily. 6. Claritin 10 mg daily. 7. Omeprazole 20 mg daily. 8. Rythmol 225 mg b.i.d. 9. Lipitor 10 mg daily. 10. Xarelto 20 mg daily. 11. Potassium chloride 10 mEq p.o. b.i.d. 12. DuoNeb q.4 hours. 13. Cefazolin ____ vancomycin. DRUG ALLERGY HISTORY: Noted as no known drug allergies. PHYSICAL EXAMINATION: GENERAL: This is a 67-year-old male who has been currently sitting on the chair without any acute distress at time of the assessment. VITAL SIGNS: Height of 5 feet 6 inches, weight of 122 pounds, BMI of ____. Vital signs of the patient which has been recorded shows normal temperature, respiratory rate 20-16, heart rate of 87-117 with atrial fibrillation, blood pressure 122/74-100/54. Pulse oxygen saturation on 2 liters nasal cannula 98% saturation this morning was noted. HEENT: Severe hearing impairment. Head was atraumatic. Eyes nonicterus. Severe reduced posterior pharyngeal space, high tongue base and crowding of soft tissue structures. CARDIOVASCULAR: S1, S2 audible. LUNGS: Decreased breath sounds in the left lower lung. There was no wheezing or crackles heard. ABDOMEN: Soft, nontender. EXTREMITIES: Showed chronic edema. LABORATORY DATA: CBC from 07/16/2017 on admission, WBC count 11.8, otherwise normal CBC. CMP on admission 07/16/2017, normal BUN and creatinine. All the other electrolytes and LFTs were normal. Arterial blood gas done this morning, pH of 7.40, pCO2 of 44.9, pO2 of 89.9, 2 liters nasal cannula that was ordered by me. BMP this morning, BUN 30, creatinine was normal, glucose 114. Vancomycin trough level was noted 30, which was elevated. Wound culture was [place], [place] REPORT OF CONSULTATION NAME: SHILPI FUENTES JR UNIT #: [id number] ROOM: 531 DOCTOR: STEPHAN NICHOLSON [facility] BIRTHDATE: [birth year] noted with heavy growth of gram-positive cocci growth. Further identification and sensitivity was pending, this was taken at the site of previous pericardial window and chest tube area. Review of the radiology data for this patient. The chest x-ray done this morning, one view was noted with evidence of pleural fluid, blunting of the left costophrenic angle, cardiomegaly was visible. CT scan of the chest for the patient that was done on 07/07/2017 shows large amount of fat noted in the mediastinum with moderate left-sided pleural fluids were noted, which was increased as compared with the previous CT scan of the chest for this patient that was noted on 06/25/2017. June 25 CT scan does show evidence of trace pericardial effusion at that time. The echocardiogram for the patient that has been assessed by Dr. Marinelli on 07/17/2017 for patient report was reviewed. It was described as findings of atrial fibrillation underlying rhythm, technically limited study body habitus, normal left ventricle, mild concentric LVH. Trace pericardial effusions were noted at that time. IMPRESSION: 1. The patient who has been currently admitted to the hospital noted with left-sided pleural fluid, which has been present since beginning of 06/2017, noted mildly increased. Etiology was undetermined. 2. Pericardial effusion, etiology is unclear. 3. The patient with obesity. 4. History of atrial fibrillation. 5. Chronic anticoagulation for the atrial fibrillation. The differential diagnosis for recurrent pleural fluid would be considered may be related to the previous viral or bacterial infection as the fluid has been noted gradually increased, etiology remains unclear. The inflammatory conditions including connective tissue disorder, resulting in a pericardial effusion and the pleural fluid remains in consideration in addition to the vitals etiology. Certainly malignant pleural fluid would remain in consideration because of left-sided pleural fluid needs to be further determined. 6. Elevated trough level, vancomycin. 7. Chest wound infection most likely related to Staphylococcus aureus or methicillin-resistant Staphylococcus aureus, reason, pericardial window would be considered. PLAN AND MANAGEMENT: Continue oxygen supplementation, maintain a saturation of 92% or greater. The patient will be ordered a thoracentesis to be done by the radiologist while the patient will be noted off the Xarelto. Xarelto will need to be placed on hold. This will be confirmed from the Cardiology Services prior to the consideration. The patient was also noted with wound infection at this time growing heavy growth of gram-positive cocci, which continued to be treated with vancomycin. The vancomycin will need to be adjusted because of the high trough level, which was noted today. Monitor kidney functions and other medical management. Usual care, other supportive therapy, plan of management and care. Based on the assessment of pleural fluid, further suggestion of intervention will be planned accordingly. Thanks for allowing me to participate in the care of this patient. [place], [place] REPORT OF CONSULTATION NAME: SHILPI FUENTES JR UNIT #: [id number] ROOM: 531 DOCTOR: COLBY KEE MD BIRTHDATE: [birth year] COLBY ROTHMAN MD CM:CONSTR:REPORT OF CONSULTATION 1448 07/20/17 0312 interface
[2017-07-16 10:47] VITALS: BP 103/74
[2017-07-16 11:27] VITALS: BP 111/69
[2017-07-16 11:37] LABS: BASO # 0.1 10*3/uL (0.0-0.1); BASO % 0.5 % (0.0-1.0); EOS # 0.7 10*3/uL (0.0-0.4); HEMATOCRIT 42.5 % (42.0-52.0); HEMOGLOBIN 13.8 g/dl (14.0-18.0); LYMPH # 1.8 10*3/uL (1.3-4.4); MEAN CELL VOLUME 93.8 fl (80.0-94.0); MEAN CORPUSCULAR HGB 30.5 pg (27.0-31.0); MEAN CORPUSCULAR HGB CONC 32.5 g/dl (33.0-37.0); MEAN PLATELET VOLUME 9.8 fl (9.6-12.3); MONO # 1.2 10*3/uL (0.1-1.0); PLATELET COUNT AUTOMATED 361 10*3/uL (130-400); RED BLOOD COUNT 4.53 10*6/uL (4.50-5.90); RED CELL DISTRI WIDTH 14.3 % (0-14.5); WHITE BLOOD COUNT 11.8 10*3/uL (4.8-10.8)
[2017-07-16 11:46] LABS: ACT PARTIAL THROMBO TIME 25.2 SECONDS (20.8-31.5)
--- NOTE | 2017-07-16 11:48 | NUR ---
PT RETURNS TO EXAM ROOM AFTER CT SCAN. AMBULATORY TO BATHROOM.
[2017-07-16 11:52] VITALS: BP 118/79
[2017-07-16 11:53] LABS: ALBUMIN 3.2 gm/dl (3.1-4.5); ALKALINE PHOSPHATASE 92 U/L (45-117); BUN 20 mg/dl (7-24); CHLORIDE 104 mmol/L (98-107); CKMB 0.9 ng/ml (0.5-3.6); CPK 23 U/L (39-308); CREATININE 1.02 mg/dL (0.70-1.30); MAGNESIUM 2.2 mg/dL (1.5-2.1); POTASSIUM 4.4 mmol/L (3.5-5.1); SGOT/AST 12 IU/L (3-35); SGPT/ALT 32 U/L (12-78); SODIUM 139 mmol/L (136-145); TOTAL PROTEIN 7.2 gm/dL (6.4-8.2)
[2017-07-16 11:54] LABS: LDH 157 U/L (87-241)
[2017-07-16 11:55] LABS: TROPONIN I < 0.015 ng/ml (<0.045)
[2017-07-16 13:17] VITALS: BP 106/74
[2017-07-16 13:37] LABS: BILIRUBIN NEGATIVE (NEGATIVE); BLOOD NEGATIVE (NEGATIVE); CLARITY CLEAR (CLEAR); COLOR YELLOW (YELLOW); GLUCOSE NEGATIVE (NEGATIVE); KETONE NEGATIVE (NEGATIVE); LEUKO ESTERASE NEGATIVE (NEGATIVE); NITRITE NEGATIVE (NEGATIVE); PH 6.5 (5.0-9.0); SPECIFIC GRAVITY <= 1.005 (1.005-1.030); UROBILINOGEN 0.2 E.U./dl (0.2-1.0)
--- NOTE | 2017-07-16 13:51 | NUR ---
mEDICATED FOR PAIN SCALE 6/10 TO INCISIONAL AREA. # PROVIDED FOR SISTER TO TEXT MED LIST
--- NOTE | 2017-07-16 14:44 | NUR ---
CALLED IN WITH UP DATED MED LIST . some meds were questionable . [facility] pharmacy was also called to update med list this list does no coincide w/ sisters med list. med list is complete as i can at this time.
[2017-07-16 15:48] VITALS: BP 119/73
--- NOTE | 2017-07-16 15:55 | NUR ---
A 67, admitted to 5E, under the services of Dr. STONE LONDON,RAND [place] with a diagnosis of PLEURAL EFFUSION. Chief complaint is SOB, CHEST PAIN. Patient arrived via ambulance from ER. Monitor applied. Initial assessment completed. Vital signs taken and recorded. DR. STONE LONDON,RAND [facility] notified of admission to the unit. Orders received. See assessment for past medical history, medications and allergies. Patient and/or family oriented to unit. [facility] visitation policy reviewed. Clothing/patient valuable form completed. ORA KO
--- NOTE | 2017-07-16 16:00 | NUR ---
WOUND PHOTOS TAKEN OF MIDSTERNAL SURGICAL INCISION. DRY DRESSING APPLIED.
[2017-07-16] MEDS ORDERED: METOPROLOL SUC100 M1 PO (16:06)
[2017-07-16] MEDS ORDERED: DILTIAZEM240 M1 PO (16:06)
--- NOTE | 2017-07-16 16:15 | NUR ---
DR RITTER IN TO SEE PT AT THIS TIME, CHANNEL SPECIALIST PRESENT.
--- NOTE | 2017-07-16 16:52 | NUR ---
DR VELIZ'S ANSWERING SERVICE NOTIFIED OF NEW CONSULT.
--- NOTE | 2017-07-16 16:56 | NUR ---
DR VELIZ RETURNED PAGE, STATED OK FOR LOGAN AND HE WILL SEE PT TOMORROW.
--- NOTE | 2017-07-16 16:59 | NUR ---
DR DIEGO'S ANSWERING SERVICE NOTIFIED OF NEW CONSULT.
[2017-07-16 20:00] VITALS: BP 143/83
[2017-07-17] VITALS: BP 136/76
--- NOTE | 2017-07-17 01:27 | NUR ---
Requested and medicated with Tylenol for complaints of incision site chest pain at 0017. Will continue to monitor effectiveness.
[2017-07-17 06:28] LABS: BASO % 0.4 % (0.0-1.0); EOS # 0.5 10*3/uL (0.0-0.4); HEMATOCRIT 41.7 % (42.0-52.0); HEMOGLOBIN 13.1 g/dl (14.0-18.0); LYMPH # 1.5 10*3/uL (1.3-4.4); LYMPH % 14.1 % (27.0-41.0); MEAN CELL VOLUME 95.2 fl (80.0-94.0); MEAN CORPUSCULAR HGB 29.9 pg (27.0-31.0); MEAN CORPUSCULAR HGB CONC 31.4 g/dl (33.0-37.0); MEAN PLATELET VOLUME 10.1 fl (9.6-12.3); MONO # 1.1 10*3/uL (0.1-1.0); MONO % 9.7 % (3.0-9.0); NEUT # 7.6 10*3/uL (2.3-7.9); NEUT % 70.5 % (47.0-73.0); PLATELET COUNT AUTOMATED 324 10*3/uL (130-400); RED BLOOD COUNT 4.38 10*6/uL (4.50-5.90); RED CELL DISTRI WIDTH 14.3 % (0-14.5); WHITE BLOOD COUNT 10.8 10*3/uL (4.8-10.8)
--- NOTE | 2017-07-17 06:43 | NUR ---
Tylenol effective to decrease incision pain from a 7/0 to 2/10. Will continue to monitor.
[2017-07-17 06:52] LABS: BUN 22 mg/dl (7-24); CHLORIDE 99 mmol/L (98-107); CREATININE 1.08 mg/dL (0.70-1.30); POTASSIUM 4.7 mmol/L (3.5-5.1); SODIUM 138 mmol/L (136-145)
[2017-07-17 08:00] VITALS: BP 147/84
--- NOTE | 2017-07-17 09:04 | NUR ---
PT REQUESTED MEDICATION FOR INCISION PAIN. RATES PAIN AT 7 OUT OF 10 AND COMPLAINS OF ITCHING.
--- NOTE | 2017-07-17 10:01 | NUR ---
PER PT, MEDICATION EFFECTIVE. PT REPORTS LESS PAIN. RATES PAIN AT 2 OUT OF 10.
[2017-07-17 12:00] VITALS: BP 138/80
--- NOTE | 2017-07-17 13:13 | NUR ---
Called and spoke with nephew, Vinicio Marco Antonio, who cares for this patient. He stated patient has VNA with aides, PT/OT all set up at home through [facility] and feels he should be fine to return home upon discharge, but asked to have Dr. Castle call him in the morning. Passed this request on to to notify Dr. Castle.
--- NOTE | 2017-07-17 13:21 | NUR ---
Patient is under Dr. Marinelli, not Dr. Castle. Message given to Dr. Marinelli patients nephew, Vinicio would like to discuss patients condition with him. Vinicio stated the patient does not have an HPOA.
[2017-07-17 16:00] VITALS: BP 140/62
--- NOTE | 2017-07-17 16:50 | NUR ---
PT REQUESTED PAIN FOR INCISIONAL PAIN OF SUBSTERNUM. RATES PAIN AT 7 OUT OF 10. TYLENOL GIVEN.
--- NOTE | 2017-07-17 16:53 | NUR ---
IN TO SEE PT.
--- NOTE | 2017-07-17 17:42 | NUR ---
TYLENOL EFFECTIVE PER PT. RATES PAIN AT 2 OUT OF 10.
--- NOTE | 2017-07-17 18:32 | NUR ---
CALLED FOR CONSULT. WILL BE IN TO SEE PT IN THE MORNING.
[2017-07-17 20:00] VITALS: BP 102/53
--- NOTE | 2017-07-17 20:16 | NUR ---
PATIENT RESTING OOB IN CHAIR. HE HAS SOME DISCOMFORT AT HIS INCISION SITE AND STATES IT IS A LITTLE ITCHY. HE IS NOT DUE FOR ANY PAIN MEDICATION AT THIS TIME. WILL FOLLOW UP. HE IS A&OX3, PLEASANT AND COOPERATIVE WITH CARE. HE IS DEAF BUT IS GOOD WITH COMMUNICATING HIS NEEDS. HE HAS PAPER WHICH HE WRITES DOWN A LOT TO HELP HIM COMMUNICATE. ANTIBIOTIC IS RUNNING AT THIS TIME. RESPIRATIONS EASY/REG.NO SXS OF DISTRESS. CALL LIGHT IN REACH
[2017-07-18] VITALS: BP 108/74
--- NOTE | 2017-07-18 06:50 | NUR ---
PAITENT MEDICATED WITH PRN TYLENOL ORDERD FOR C/O ABDOMONAL PAIN RATED A 5
[2017-07-18 08:00] VITALS: BP 100/54
--- NOTE | 2017-07-18 08:11 | NUR ---
NOTIFIED MIKE FAIR THAT SINGLE WIRE SAW OPERATOR WAS NEEDED FOR 11 AM TO TRANSLATE FOR DR VELIZ AND DR CAMPBELL.
--- NOTE | 2017-07-18 10:30 | NUR ---
DRESSING CHANGE COMPLETED TO MIDTERNAL CHEST BY ECONOMICS INSTRUCTOR.
--- NOTE | 2017-07-18 11:15 | NUR ---
INTERPRETOR ARRIVED AND MET WITH PT AND DR CHANEL AND EXPLAINED TO PT ABOUT WOUND AND PLEURAL EFFUSION TO LUNG ROQUE. PT ACKNOWLEDGED UNDERSTANDING THROUGH INTERPRETOR. DR CHNAEL COMPLETED [facility] HX INTERVIEW THROUGH THE INTERPRETOR.
[2017-07-18 12:00] VITALS: BP 135/96
--- NOTE | 2017-07-18 12:40 | NUR ---
SHILPI FUENTES JR [id number] Please refer to the physician's history and physical for past medical history, comorbid conditions, and allergies. Diagnosis: PLEURAL EFFUSION DUE TO CHF Baljinder Score: 20,LOW OR NO RISK WOUND DESCRIPTIONS: Location of the wound: mid chest wall proximal Type of wound: surgical Thickness: Full Size: 5.6cm x 0.7cm x 0.1cm Tunneling: none Undermining: none Sinus Tract: none Presence of Exudate: Seroanguineous Amount: Moderate Color: Yellow Odor: None Periwound Skin Appearance: Erythema Wound edges: had 5 taya to distal end of wound Pain (associated with wound): tender to touch How does patient state this happened? pt sister stated had surgery 1 week ago last monday Location of the wound: mid chest wall distal Type of wound: surgical Thickness: Full Size: 0.7cm x 1.1cm x 0.1cm Tunneling: none Undermining: none Sinus Tract: none Presence of Exudate: Serosanguineous Amount: Light Color: Yellow Odor: None Periwound Skin Appearance: Erythema Wound edges: approximated with sutures Pain (associated with wound): tender to touch How does patient state this happened? How does patient state this happened? pt sister stated had surgery 1 week ago last monday Surface the patient is resting on: Position Pro SKIN PREVENTION RECOMMENDATION: 1. Pressure redistribution support surface as appropriate 2. Elevate heels 3. Remove boots/TEDS every shift and reapply 4. Head of bed 30 degrees as tolerated 5. Assess nutrition and hydration 6. Manage moisture 7. Avoid the use of containment devices while in bed 8. Use absorptive products on surfaces limit layers of linens on bed 9. Turn and reposition every 1-2 hours in bed and every 1 hour in chair as tolerated 10. Weight shifts every 15 minutes while up in chair 11. Offloading with pillows or device to keep heels elevated off bed 12. Monitor skin at least every shift 13. Inspect under medical devices twice a day WOUND TREATMENT RECOMMENDATIONS: Spoke with Dr. Camargo he stated he will put wound care orders in for this patient.
--- NOTE | 2017-07-18 15:45 | NUR ---
INTERPRETOR NOTIFIED PER DR ISIDRO'S REQUEST SO HE CAN EXPLAIN PICC LINE PLACEMENT/PROCEDURE.
[2017-07-18 16:00] VITALS: BP 126/98
--- NOTE | 2017-07-18 19:43 | NUR ---
PHYSICIAN WAS NOTIFIED OF DR. STEPHAN RAO. RESPONSE OF NOTIFICATION WAS OKAY THANK YOU. ROSALES REED
[2017-07-18 20:00] VITALS: BP 111/73
--- NOTE | 2017-07-18 20:45 | NUR ---
PATIENT RESTING OOB IN CHAIR. ANTIBIOTIC INFUSING ORDERED. HE C/O PAIN RATED A 4-5 AT HIS INCISION SITE WHICH HE GETS SCHEDULED TRAMADOL FOR. DRESSING IS INTACT, NO DRAINAGE. NO FURTHER VOICED COMPLAINTS. RESPIRATIONS EASY/REG ON 3L NC. NO SXS OF DISTRESS. HE IS PLEASANT/COOPERATIVE WITH CARE, APPROPRIATE. DEAF, GOOD WITH COMMUNICATING HIS NEEDS. CLINICAL RESEARCH NURSE IS AVAILABLE IF NEED BE. CALL LIGHT IS IN REACH. WILL MONITOR.
[2017-07-19] VITALS: BP 115/58
--- NOTE | 2017-07-19 04:25 | NUR ---
PATIENT RESTING QUIETLY IN BED PLAYING GAMES ON HIS IPAD. HAS NO VOICED COMPLAINTS AT THIS TIME. RESPIRS EASY/REG. CALL LIGHT IN REACH.
[2017-07-19 05:53] LABS: BUN 30 mg/dl (7-24); CHLORIDE 100 mmol/L (98-107); CREATININE 1.19 mg/dL (0.70-1.30); POTASSIUM 3.7 mmol/L (3.5-5.1); SODIUM 137 mmol/L (136-145)
[2017-07-19 06:36] LABS: VANCOMYCIN TROUGH 30.2 ug/mL (10-20)
--- NOTE | 2017-07-19 06:41 | NUR ---
VANC TROUGH 30.2; VANC INFUSION STOPPED AT THIS TIME.
[2017-07-19 08:00] VITALS: BP 122/64
--- NOTE | 2017-07-19 08:13 | NUR ---
DAMPENER OPERATOR TALKED TO NEPHEW GILMAR-PT LIVES WITH HIM AND HIS SISTER. GILMAR SAYS THEY HAVE DISCUSSED SNF STAY AND [facility] [place] PT NEEDS SKILLED NURSING IV ATB. REFERRAL WILL BE MADE AND WILL NEED INSURANCE PRECERT.
--- NOTE | 2017-07-19 08:28 | NUR ---
PT REQUESTED MEDICATION FOR PAIN. PT RATES PAIN AT 6 OUT OF 10 AND CONSTANT AT THE INCISIONAL SITE. TYLENOL GIVEN.
--- NOTE | 2017-07-19 08:33 | NUR ---
will make referral to [facility] and to the [facility].
--- NOTE | 2017-07-19 09:00 | NUR ---
Dr serna in to see patient. Would like to obtain blood gases.
--- NOTE | 2017-07-19 09:17 | NUR ---
PAIN MEDICATION EFFECTIVE. PER PT, PAIN HAS DECREASED.
--- NOTE | 2017-07-19 09:23 | NUR ---
Pt leaving floor to surgery to get PICC line placed. Consents obtained yesterday w/second baker at bedside.
[2017-07-19 10:20] LABS: ABG BASE EXCESS 2.4 mmol/L (-2.0-2.0); ABG HCO3 27.3 mmol/l (22-26); ABG O2 SATURATION 96.9 % (95-97); ARTERIAL BLOOD GAS PCO2 44.9 mmHg (35-45); ARTERIAL BLOOD GAS PH 7.4 (7.35-7.45); ARTERIAL BLOOD GAS PO2 89.3 mmHg (80-90)
--- NOTE | 2017-07-19 10:59 | NUR ---
LESLIE WILEY MADE REFERRAL TO [facility]. ALSO COMPLETED [facility] ONLINE.
[2017-07-19 12:00] VITALS: BP 122/74
--- NOTE | 2017-07-19 12:15 | NUR ---
WOUND DRESSING CHANGED. PT TOLERATED WELL. SCANT AMOUNT OF PURULENT DRAINAGE ON ABD PAD NOTED.
--- NOTE | 2017-07-19 14:25 | NUR ---
CALLED 's OFFICE REGARDING WOUND CULTURE RESULTS. AWAITING RETURN CALL AT THIS TIME.
--- NOTE | 2017-07-19 15:00 | NUR ---
PT HR IN 30S BRIEFLY[address] DR VELIZ ON FLOOR AND NOTIFIED. MEDICATIONS ADJUSTED.
[2017-07-19 16:00] VITALS: BP 96/62
--- NOTE | 2017-07-19 16:12 | NUR ---
SPOKE W/DR ROTHMAN. WOULD LIKE PATIENT TO HAVE LEFT SIDED THORACENTESIS W/INTERVENTIONAL RADIOLOGY. SPOKE W/DR VELIZ WELL, [facility]. SPOKE WITH DR QUINTANA WHO IS ABLE TO DO THORACENTESIS AT 2PM. WILL NOTIFY CSR RETAIL TO BE HERE FOR INFORMED CONSENT TO BE SIGNED ON 07/20/17 AT 2PM.
--- NOTE | 2017-07-19 18:55 | NUR ---
QUALITY SUPERVISOR NOTIFIED THAT PATIENT IS TO HAVE THORACENTESIS TOMORROW W/DR QUINTANA AT 2PM AND NEEDS TO BE PRESENT AT THIS TIME.
[2017-07-19 20:00] VITALS: BP 110/65
--- NOTE | 2017-07-19 22:00 | NUR ---
PT ASSESSMENT COMPLETE, NO S/S OF DISTRESS. ANTIBIOTICS RUNNING VIA PICC LINE. PICC DRESSING DRY AND IN TACT, FLUSHING WITH EASE. ALL SAFETY MEASURES IN PLACE, CALL LIGHT IN REACH.
[2017-07-20] VITALS (8 sets, daily range): BP systolic 84–140; BP diastolic 47–86
--- NOTE | 2017-07-20 02:00 | NUR ---
PT C/O STERNAL PAIN, TYLENOL 650 MG TABLET ADMINISTERE PO. WILL MONITOR EFFECTIVNESS. CALL LIGHT IN REACH.
--- NOTE | 2017-07-20 03:00 | NUR ---
TYLENOL EFFECTIVE PER PT. CALL LIGHT IN REACH.
--- NOTE | 2017-07-20 05:12 | NUR ---
24 HR chart check completed.
--- NOTE | 2017-07-20 10:30 | NUR ---
OT evaluation completed on 5th floor with full eval to follow. Precautions: IV, O2, fall risk, unsteady gait, chest incision. Patient with moderate complexity level (23140). Recommend SNF to increase safety and (I) with ADLs. Thank you for this referral. Sepideh Clancy OTR/L
--- NOTE | 2017-07-20 10:33 | NUR ---
PHYSICAL THERAPY Physical Therapy Evaluation completed this date. See eval document for further details. Will begin PT intervention to address the impairments of muscle weakness, decreased functional mobility I, and difficulty ambulating. Recommend SNF [place] d/c[place] [address] based on chart review and PT eval. Corinna Villagomez, PT
--- NOTE | 2017-07-20 14:19 | NUR ---
IN INTERVENTIONAL RADIOLOGY FOR THORACENTESIS.
--- NOTE | 2017-07-20 14:26 | NUR ---
Faxed PT and OT evals and progress notes to [facility] for precert. Waiting on auth
--- NOTE | 2017-07-20 15:30 | NUR ---
PATIENT IS BACK FROM US. NO COMPLAINTS AT THIS TIME. BANDAGE TO RIGHT BACK INTACT. PATIENT SITTING UP IN CHAIR.
[2017-07-20 16:26] LABS: BODY FLUID WBC 240 /uL
[2017-07-20 17:18] LABS: BF LYMPHOCYTES 42 %; BF MESOTHELIALS 10 %; BF MONOCYTES 24 %; BF NEUTROPHILS 22 %
[2017-07-20] MEDS ORDERED: VANCO 1 GR1 GM/250 M IV (17:44)
[2017-07-21] VITALS: BP 128/80
--- NOTE | 2017-07-21 02:33 | NUR ---
24 HR chart check completed.
[2017-07-21 04:00] VITALS: BP 98/52
--- NOTE | 2017-07-21 07:00 | NUR ---
ALERT ORIENTED X3. NO SOB, LUNG SOUNDS DIMINISHED NO CRACKLES NOTED. NO C/O DISCOMFORT VOICED.
--- NOTE | 2017-07-21 07:25 | NUR ---
Patient has authorization to go to [facility] in [facility]. Patient can go when ready for discharge.
--- NOTE | 2017-07-21 07:33 | NUR ---
Patient is being discharged to the [facility] in [place]. Transportation scheduled for 9:30 AM with [facility]. AL and nursing notified.
--- NOTE | 2017-07-21 07:44 | NUR ---
Shift chart check completed.
--- NOTE | 2017-07-21 07:55 | NUR ---
DR. RITTER NOTIFIED PT WEIGHT GAIN, NO SHORTNESS OF BREATH, NO CRACKLES IN LUNGS. PT RESTING PEACEFULLY IN CHAIR. NO NEW ORDERS AT THIS TIME.
--- NOTE | 2017-07-21 07:58 | NUR ---
Floor requested discharged be moved to 1PM so infectious disease can see the patient. Notified [facility] for 1PM grape picker, notified care home
[2017-07-21 08:00] VITALS: BP 112/47
--- NOTE | 2017-07-21 09:14 | NUR ---
[facility] CONTACTED AND REQUEST MADE TO HAVE AN EDGE TRIMMER MECHANIC AVAILABLE FOR DR. DIEGO AT 11:30
[2017-07-21 09:20] LABS: BUN 22 mg/dl (7-24); CREATININE 1.04 mg/dL (0.70-1.30)
--- NOTE | 2017-07-21 09:24 | NUR ---
PHYSICAL THERAPY Jasmeet seen this AM 1:1 for his therapy gait and did well. All transfers were supervision x 1, no LOB, Pt has IV Pole. Gait with MIN GRIP BOSS X 1, total 80' X 1, CGA X 1, no LOB cueing for turns, in and out of pt bathroom followed by up in his bedside chair, call light and tray in front. JOHNATHON BARBOZA COMPUTER NUMERIC CONTROL SETTER.
--- NOTE | 2017-07-21 10:00 | NUR ---
SCHEDULED DOSE OF ULTRAM WAS GIVEN FOR CHEST PAIN AT THE LOCATION OF HIS INCISION. WILL MONITOR. PATIENT UNABLE TO VERBALIZE. DURING THE ASSESSMENT WE COMMUNICATED BY WRITING BACK AND FORTH TO EACH OTHER.
--- NOTE | 2017-07-21 10:45 | NUR ---
NORCO WAS EFFECTIVE, PATIENT COMFORTABLE. GAVE THE THUMBS UP.
--- NOTE | 2017-07-21 12:03 | NUR ---
PATIENT SEEN 1:1 25 MINUTES THIS DATE. PATIENT IDENTIFIED BY NAME AND DATE OF . PATIENT DEAF AND COMMUNICATED WITH THROUGH WRITING. PATIENT SEATED IN RECLINER UPON ARRIVAL. PATIENT DENIED ANY PAIN. PATIENT COMPLETED FUNCTIONAL AMBUALTION USE CANE TO BATHROOM CGA WITH TACTILE CUES TO FACILITATE SAFETY AWARENESS AND BACK TO RECLINER. PATIENT COMPLETED SEATED REST BREAK AND COMPLETED STAND PIVOT TRANSFER RECLINER TO BED AND BACK CGA WITH USE CANE. PATIENT COMPLETED FUNCTIONAL AMBULATION TO BATHROOM CGA AND COMPLETED TOILETING SUPERVISION. PATIENT COMPLETED STAND TOLERANCE 2 MINUTES USE CANE WITH FAIR BALANCE. PATIENT REQUESTED MORE ICE WITH AID NOTIFIED.PATIENT SEATED IN RECLINER. SUSU CABALLERO
--- NOTE | 2017-07-21 13:14 | NUR ---
Discharge instructions reviewed with patient/family. Patient receptive and verbalizes understanding. Follow-up care arranged. Written instructions given to patient/family. Patient was discharged to [facility] and transported by ambulance. NICK RAYMOND
[2017-07-22 06:13] LABS: RHEUMATOID ARTHRITIS FACTOR <10.0 IU/mL (0.0-13.9)
[2017-07-22 08:08] LABS: IMMUNOGLOBULIN IgE 002170 23 IU/mL (0-100)
--- NOTE | 2017-07-24 07:57 | NUR ---
PHYSICAL THERAPY CO-SIGN I approve of the Phyical Therapy notes written above. YOUNG REDDING PT
--- NOTE | 2017-07-24 08:04 | NUR ---
OCCUPATIONAL THERAPY CO-SIGN I approve of the Occupational Therapy notes written above. ALFREDO MAN OTR/Layla
[2017-07-24 13:03] LABS: IGG SUBCLASS 1 481 mg/dL (248-810); IGG SUBCLASS 2 496 mg/dL (130-555); IGG SUBCLASS 3 33 mg/dL (15-102); IGG SUBCLASS 4 55 mg/dL (2-96)
[2017-07-24 16:09] LABS: ALDOLASE 002030 7.8 U/L (3.3-10.3); ANGIOTENSIN-CONVERTING ENZYME 34 U/L (14-82); ATYPICAL PANCA <1:20 titer (Neg:<1:20); CYTOPLASMIC (C-ANCA) <1:20 titer (Neg:<1:20); PERINUCLEAR (P-ANCA) <1:20 titer (Neg:<1:20)
== END 2017-07-21 13:09 | disposition other institution (70) | DRG 862 ==
LOC: ED 10:30 → EDHOLD 13:35 → 5E 13:35
PROVIDERS: Internal Medicine Cardiovascular Disease; Internal Medicine Critical Care Medicine; Internal Medicine Infectious Disease; Nurse Practitioner Family; ADMIT Internal Medicine
PROC: 02HV33Z Insertion of Infusion Device into Superior Vena Cava, Percutaneous Approach (ICD-10-PCS; principal; 2017-07-19)
PROC: 0W9B3ZZ Drainage of Left Pleural Cavity, Percutaneous Approach (ICD-10-PCS; 2017-07-20)
DX: T81.4XXA Infection following a procedure, initial encounter (principal); A41.9 Sepsis, unspecified organism; I50.33 Acute on chronic diastolic (congestive) heart failure; J18.9 Pneumonia, unspecified organism; J90 Pleural effusion, not elsewhere classified; I31.3 Pericardial effusion (noninflammatory); I11.0 Hypertensive heart disease with heart failure; E66.01 Morbid (severe) obesity due to excess calories; J44.0 Chronic obstructive pulmonary disease with (acute) lower respiratory infection; I48.1 Persistent atrial fibrillation; J44.1 Chronic obstructive pulmonary disease with (acute) exacerbation; Z68.41 Body mass index [BMI] 40.0-44.9, adult; H91.90 Unspecified hearing loss, unspecified ear; D72.829 Elevated white blood cell count, unspecified; K21.9 Gastro-esophageal reflux disease without esophagitis; I87.2 Venous insufficiency (chronic) (peripheral); E78.2 Mixed hyperlipidemia; Y83.8 Other surgical procedures as the cause of abnormal reaction of the patient, or of later complication, without mention of misadventure at the time of the procedure; E11.9 Type 2 diabetes mellitus without complications; B95.62 Methicillin resistant Staphylococcus aureus infection as the cause of diseases classified elsewhere; Z79.899 Other long term (current) drug therapy; Z87.01 Personal history of pneumonia (recurrent); Z79.01 Long term (current) use of anticoagulants; Z82.49 Family history of ischemic heart disease and other diseases of the circulatory system; Z83.3 Family history of diabetes mellitus; Z80.8 Family history of malignant neoplasm of other organs or systems; Y92.89 Other specified places as the place of occurrence of the external cause

== ENCOUNTER 2017-08-18 08:01 | Inpatient (IN) | payer MEDICARE ==
[~2017-08-18] VITALS: Ht 157 cm; Wt 121.3 kg
[2017-08-18] VITALS (7 sets, daily range): BP systolic 91–135; BP diastolic 57–85
--- NOTE | ~2017-08-18 | WRIGHTHP ---
[place], [place] PATIENT HISTORY AND PHYSICAL EXAM NAME: SHILPI FUENTES JR [facility] #: [id number] UNIT #: [id number] ROOM: 531 DOCTOR: RAND RITTER MD BIRTHDATE: [birth year] DOS: 08/18/2017 HISTORY OF PRESENT ILLNESS: The patient is a 67-year-old gentleman with a past medical history of: 1. Pericardial effusion, status post pericardial window placement. 2. Left pleural effusion, status post thoracentesis last month. 3. Type 2 diabetes mellitus. 4. Obesity. 5. Hearing and speech impairment. 6. Diastolic type chronic CHF. 7. COPD. 8. Poor compliance with treatment and poor insight into medical issues. 9. Benign essential hypertension. 10. Mixed hyperlipidemia. 11. Chronic stasis dermatitis involving skin of both legs. The patient presented to the Emergency Department with complaints of recurrent chest pains. No increased shortness of breath. No GI or urinary symptoms. The patient apparently refused conference interpreter in the Emergency Department. The patient apparently felt a tearing sensation in his chest and discomfort and according to the sister; he had some shortness of breath which was mild and complaining of pain at the surgical site where he had the pericardial window placement previously and some superficial wound infection. The patient was evaluated in the Emergency Department. After admission, Cardiology consulted to follow him and he appears comfortable. REVIEW OF SYSTEMS: LUNGS: Chronic shortness of breath. GASTROINTESTINAL: No nausea, vomiting, diarrhea or constipation. CARDIOVASCULAR: Complains of pain at the surgical site for pericardial window placement. FAMILY HISTORY: Noncontributory. MEDICATIONS: Metolazone, metoprolol, losartan, diltiazem, omeprazole, Xarelto, Rythmol, potassium, furosemide, metformin. ALLERGIES: No known drug allergies. PHYSICAL EXAMINATION: GENERAL: Awake, alert, poor historian, obese, in no visible distress. EXTREMITIES: Chronic skin changes in both lower extremities, stasis dermatitis. LABORATORY DATA: All cardiac enzymes have been negative. BUN and creatinine 43 and 1.07. Hemoglobin 13.2. IMPRESSION: 1. The patient has some epigastric tenderness at the site of pericardial window surgery incision site, evaluated by dish person, Dr. Knutson. 2. Chronic atrial fibrillation. The patient anticoagulated with Xarelto. [place], [place] PATIENT HISTORY AND PHYSICAL EXAM NAME: SHILPI FUENTES JR [facility] #: [id number] UNIT #: [id number] ROOM: 531 DOCTOR: RAND RITTER MD BIRTHDATE: [birth year] Heart rates are controlled. Dr. Knutson will consider cardioversion. 3. History of viral pericarditis with tamponade. 4. Acute over chronic diastolic type congestive heart failure with increased shortness of breath, to be followed and treated. 5. Type 2 diabetes mellitus, uncontrolled, with poor compliance with diet and treatment. Blood sugars to be monitored and treatment modified accordingly. 6. Benign essential hypertension. Blood pressure is to be monitored and treated. 7. Blood cultures ordered by Cardiology along with an echocardiogram to evaluate the pericardial sac and a CAT scan of the abdomen to look for any signs of an abscess at the incision site for previous surgery for pericardial window. 8. I will get consult with Dr. Camargo to reevaluate the patient. RAND RITTER MD CM:HISPHYS:PATIENT HISTORY AND PHYSICAL EXAMINATION 02 42 RAND RITTER MD 08/18/172243 interface
--- NOTE | ~2017-08-18 | CON ---
[place], [place] REPORT OF CONSULTATION [id number] UNIT #: [id number] ROOM: 531 DOCTOR: AUDREY VELIZ MD BIRTHDATE: [birth year] DOS: 08/18/2017 REASON FOR CONSULTATION: Epigastric pain. HISTORY OF PRESENT ILLNESS: The patient is a 67-year-old man who was seen at his bedside today, 08/18/2017. This is one of several recent admissions to the hospital for this man who is congenitally deaf and has a difficult time with communication. He recently presented to the hospital with newly documented atrial fibrillation, hypertension and diastolic heart failure. He is also known to be hyperlipidemic with type 2 diabetes mellitus, COPD and obesity. Attempts were made initially to cardiovert him, but were not successful. He was anticoagulated and placed on antiarrhythmic medications with plans to cardiovert him at a later date. He was then hospitalized with a viral syndrome, which was treated conservatively. He subsequently presented to the hospital in the middle of June with increased dyspnea. An echocardiogram showed a modest pericardial effusion, but the patient did develop hypotension and tachycardia with signs of tamponade. He was therefore transferred to the [facility] where Dr. Maxx Alvarez did a pericardial window on 07/08/2017. A 600 mL of bloody fluid was removed and the patient's hemodynamics improved. He was observed at [facility] until 07/12/2017 and then discharged. He was seen in the Emergency Room on 07/16/2017 with drainage from his pericardial window incision. He also had some feverishness and sweating. He was seen by General Surgery, Dr. Camargo, who drained the wound and felt that he had a superficial fluid collection. The patient improved and was discharged to home. Recently, he says that he has been lifting some weights. He began to have increased pain at the incision site, which is healing well otherwise. He also noticed increased leg swelling and dyspnea. He therefore came to the Emergency Room. The patient has not had any fevers or sweats. He is not febrile and does not have an elevation in his white count. PAST MEDICAL HISTORY: Includes 1. Congenital deafness. 2. Recent documentation of atrial fibrillation. 3. Diastolic congestive heart failure. 4. Echocardiogram, 06/05/2017, showing normal left ventricular size, wall thickness and systolic function. Diastole could not be fully assessed. The left atrial size was normal. There was no significant abnormality of valve function. 5. Echocardiogram, 07/06/2017, showed normal left ventricular size with normal left ventricular wall thickness and segmental motion. Left ventricular systolic function was normal. There was no obvious abnormality of valve function. There was irregular thickening of the visceral pericardium with moderate circumferential pericardial effusion. There was no evidence for tamponade at the time of the echo, however, later that day after diuresis, the patient did drop his blood pressure and increased his heart rate. 6. History of myocardial perfusion imaging, 06/05/2017, demonstrating normal wall motion and no scar. There was normal perfusion, was a low-risk study. [place], [place] REPORT OF CONSULTATION NAME: SHILPI FUENTES JR UNIT #: [id number] ROOM: 531 DOCTOR: AUDREY VELIZ MD BIRTHDATE: [birth year] Ejection fraction was 68%. 7. Pericardial window inserted at [facility] by Dr. Maxx Alvarez, 07/08/2017, with drainage of 600 mL of bloody fluid and improvement in the patient's hemodynamics. The patient was felt to have a viral pericarditis with tamponade. REVIEW OF SYSTEMS: Impossible due to the patient's language barriers. ALLERGIES: The patient has no known drug allergies. MEDICATIONS: Prior to admission: Albuterol inhaler q.i.d. p.r.n., atorvastatin 10 mg at bedtime, Zyrtec 10 mg daily, vitamin D 50,000 units once a week, diltiazem CD 240 mg daily, furosemide 40 mg p.o. b.i.d., losartan 50 mg daily, melatonin 3 mg 2 tablets at bedtime, metformin 1000 mg b.i.d., metolazone 2.5 mg twice a week on Mondays and , metoprolol 150 mg p.o. daily, omeprazole 20 mg daily, potassium 10 mEq b.i.d., propafenone 225 mg twice a day, rivaroxaban 20 mg at bedtime, Spiriva 1 inhalation daily and NovoLog insulin 4 times a day by sliding scale. SOCIAL HISTORY: The patient is unmarried, lives with family. He does not smoke or consume alcohol. PHYSICAL EXAMINATION: GENERAL: The patient is an obese white male who is awake, alert and apparently oriented. VITAL SIGNS: Pulse is 100 and irregular, blood pressure is 91/65. He is afebrile. HEENT: Normocephalic and atraumatic. Extraocular muscles are intact. Sclerae are clear. Pupils equal, round and react to light. The oral mucosa is moist. Tongue is midline. NECK: Supple. He has no jugular distention or hepatojugular reflux. Carotids are full. I heard no bruits. He had no neck or supraclavicular masses and no thyromegaly. LUNGS: Respirations are unlabored. His chest is clear to auscultation and percussion. He has no presacral edema or chest wall tenderness. HEART: Has an irregularly irregular rhythm without murmurs or gallops. The PMI is not palpable. He has no precordial heave, lift or thrill. I heard no rubs. ABDOMEN: His epigastrium does show his pericardial window scar. The scar appears to be healing normally and there is no erythema. However, the area is diffusely and significantly tender to palpation. The patient's abdomen is otherwise normally active without other mass or organomegaly. EXTREMITIES: Showed chronic stasis changes with 2+ edema at the ankles. Pedal pulses are palpable bilaterally. LABORATORY DATA: Chest x-ray showed cardiomegaly, but no recent changes and no infiltrates. Hemoglobin is 13.2 with hematocrit 41.3. There are 10,300 white cells and 271,000 platelets. Sodium is 139, potassium 4.0, BUN 43, creatinine 1.07. Troponins are negative. IMPRESSIONS: [place], [place] REPORT OF CONSULTATION [id number] UNIT #: [id number] ROOM: 531 DOCTOR: AUDREY EVLIZ MD BIRTHDATE: [birth year] 1. Epigastric tenderness at the site of previous pericardial window. The patient does not show signs of sepsis, but an infection is certainly possible. 2. History of atrial fibrillation, treated with rate control and anticoagulation. A cardioversion was being considered, however, was delayed by the patient's development of pericarditis with pericardial tamponade. 3. History of viral pericarditis with tamponade, treated with pericardial window, June 2017. 4. Recent evaluation showed no evidence for left ventricular wall motion abnormalities or ischemia. 5. Chronic diastolic heart failure with acute exacerbation. 6. Difficulty with communication because of the patient's deafness. 7. Diabetes mellitus. 8. History of hypertension. PLAN: I would keep the patient on rivaroxaban for now. We will check blood cultures. I did request an echocardiogram to reassess the pericardial sac and look for signs of tamponade or persistent pericardial effusion. I also ordered a CAT scan of the abdomen to look for any signs of abscess at the incision site. It may be helpful to have General Surgery, Dr. Camargo, see the patient again to determine if the wound should be explored again or if the patient to be referred back to his cardiothoracic surgeons in [place]. [facility] Cardiology and I thank Dr. Marinelli for asking our advice regarding management of this patient. AUDREY VELIZ MD CM:CONSTR:REPORT OF CONSULTATION 26 08/18/171928 interface
--- NOTE | ~2017-08-18 | DS ---
[place], [place] DISCHARGE SUMMARY NAME: SHILPI FUENTES JR [facility] #: [id number] UNIT #: [id number] ROOM: 531 DOCTOR: RAND RITTER MD BIRTHDATE: [birth year] DOS: 08/19/2017 DISCHARGE DIAGNOSES: 1. Chest pains from uncertain etiology, apparently noncardiac. The patient was evaluated by Dr. Knutson and Dr. Dc, shipping agent. 2. History of viral pericarditis and pericardial effusion status post pericardial window and superficial surgical wound infection, which has resolved. 3. Chronic atrial fibrillation. 4. Anticoagulation with Xarelto for chronic atrial fibrillation. 6. Acute exacerbation of chronic diastolic type congestive heart failure, resolved. 7. Type 2 diabetes mellitus. 8. Obesity. 9. Hypertension. Hearing and speech impairment. 10. Chronic obstructive pulmonary disease. 11. Poor compliance with treatment and poor insight into medical issues. 12. Benign essential hypertension. 13. Mixed hyperlipidemia. 14. Chronic stasis dermatitis involving the skin of both legs. HOSPITAL COURSE: The patient with recurrent chest pains, presented to the Emergency Department and was admitted on recommendation of the Emergency Department. The patient's cardiac enzymes were checked and were found to be normal. The patient's pains were more at the epigastric area and there was some tenderness. The patient also has a history of viral pericarditis and window placement with superficial wound infection in the epigastric area. CT scan of the abdomen did not show any abscess and she was evaluated by surgeon, Dr. Camargo. If cleared by Cardiology, he can be discharged to home today. 1. Acute diastolic type congestive heart failure, as diagnosed by Cardiology, is asymptomatic now. Chest x-ray showed no vascular congestion and his breathing is improved. The patient had some shortness of breath earlier on, during this admission, which has resolved. 2. Type 2 diabetes mellitus, uncontrolled due to poor compliance with diet and treatment. The patient's blood sugars were monitored and treated. 3. Benign essential hypertension with well controlled blood pressures now. 4. Chronic centrilobular emphysema with chronic shortness of breath, stable at this time. 5. Four sets of cardiac enzymes were all negative. Chest x-ray without acute abnormality. CT of the abdomen without contrast showing no significant abnormality. No abscess. Normal serum electrolytes, bilirubin and liver enzymes. DISCHARGE MANAGEMENT: Metolazone 2.5 mg every Leoncio and , metoprolol 150 mg daily, losartan 50 mg a day, diltiazem CD 240 mg a day, omeprazole 20 mg a day, Xarelto 20 mg daily, Rythmol slow release 225 mg every 12 hours, potassium chloride 10 mEq b.i.d., furosemide 40 mg b.i.d., metformin 1000 mg b.i.d. The patient to be followed by his primary care physician after discharge. [place], [place] DISCHARGE SUMMARY NAME: SHILPI FUENTES JR UNIT #: [id number] ROOM: 531 DOCTOR: STONE LONDON,RAND Ashley BIRTHDATE: [birth year] Plan to discharge the patient after Cardiology clearance today. The patient's exercise pulse ox with 6-minute exercise remained above 91% at room air. RAND RITTER MD CM:DIMAS 19 18 RAND RITTER MD 08/19/172119 interface
--- NOTE | 2017-08-18 02:00 | NUR ---
LAB RESULTS AND ORDERS REVIEWED. PT RESTING IN BED. NO DISTRESS NOTED. CALL LIGHT IN REACH.
[~2017-08-18 08:01] MED LIST changes: +DILTIAZEM240 M1 PO; +METOPROLOL SUC100 M1 PO; +VANCO 1 GR1 GM/250 M IV
[2017-08-18 08:50] LABS: BASO # 0.1 10*3/uL (0.0-0.1); BASO % 0.5 % (0.0-1.0); EOS # 0.4 10*3/uL (0.0-0.4); EOS % 4.1 % (1.0-4.0); HEMATOCRIT 41.3 % (42.0-52.0); HEMOGLOBIN 13.2 g/dl (14.0-18.0); LYMPH # 1.5 10*3/uL (1.3-4.4); LYMPH % 14.3 % (27.0-41.0); MEAN CELL VOLUME 93.4 fl (80.0-94.0); MEAN CORPUSCULAR HGB 29.9 pg (27.0-31.0); MEAN PLATELET VOLUME 9.9 fl (9.6-12.3); MONO # 1.4 10*3/uL (0.1-1.0); MONO % 13.8 % (3.0-9.0); NEUT # 6.9 10*3/uL (2.3-7.9); NEUT % 66.9 % (47.0-73.0); PLATELET COUNT AUTOMATED 271 10*3/uL (130-400); RED BLOOD COUNT 4.42 10*6/uL (4.50-5.90); RED CELL DISTRI WIDTH 14.5 % (0-14.5); WHITE BLOOD COUNT 10.3 10*3/uL (4.8-10.8)
[2017-08-18 08:59] LABS: ACT PARTIAL THROMBO TIME 30.5 SECONDS (20.8-31.5); INTERNATIONAL NORM RATIO 1.1 (2.0-3.5)
[2017-08-18 09:07] LABS: ALBUMIN 3.2 gm/dl (3.1-4.5); ALKALINE PHOSPHATASE 94 U/L (45-117); BUN 43 mg/dl (7-24); CHLORIDE 103 mmol/L (98-107); CREATININE 1.07 mg/dL (0.70-1.30); SGOT/AST 18 IU/L (3-35); SGPT/ALT 32 U/L (12-78); SODIUM 139 mmol/L (136-145); TOTAL PROTEIN 7.2 gm/dL (6.4-8.2)
[2017-08-18 09:09] LABS: TROPONIN I < 0.015 ng/ml (<0.045)
--- NOTE | 2017-08-18 09:09 | NUR ---
PT SITTING IN BED PLLAYING GAME ON I PAD FAMILY IN ROOM NO COMPLAINTS VOICED CALL LIGHT IN REACH
--- NOTE | 2017-08-18 10:32 | NUR ---
PT GAVE ME A CARD FOR INTERPERTER FOR TH DEAF I CALLED AND NO ANSWER MESSAGE LEFT THAT PT IS BEING ADMITTED AND WE NEED THEM TO RETURN CALL I TRIED 2 DIFFERENT NUMBERS ON THE CARD BUT NO ANSWER
--- NOTE | 2017-08-18 10:34 | NUR ---
ATTEMPTED TO CALL REPORT NURSE IS IN THE MIDDLE OF MED PASS AND WILL RETURN CALL
--- NOTE | 2017-08-18 10:43 | NUR ---
PT REFUSES PICTURES OF SURGICAL SITE, MIDSTERNAL CHEST AT THIS TIME.
--- NOTE | 2017-08-18 11:05 | NUR ---
A 67, admitted to 5E, under the services of ALICIA Holbrook MD with a diagnosis of CHEST PAIN. Chief complaint is CHEST PAIN AT SURGICAL SITE FOLLOWING PERICARDIAL WINDOW COMPLETED ON 07/13/17.. Patient arrived via stretcher from ER. Monitor applied. Initial assessment completed. Vital signs taken and recorded. ALICIA HOLBROOK MD notified of admission to the unit. Orders received. See assessment for past medical history, medications and allergies. Patient and/or family oriented to unit. [facility] visitation policy reviewed. Clothing/patient valuable form completed. BHUMIKA EPPERSON
[2017-08-18] MEDS ORDERED: LOPRESSOR25 MG PO (11:12)
[2017-08-18] MEDS ORDERED: MELATONIN3 MG PO (11:46)
[2017-08-18] MEDS ORDERED: Zaroxolyn,Diul2.5 MG PO (11:47)
[2017-08-18] MEDS ORDERED: NOVOLIN 70100 UNIT/1 SQ (11:48)
--- NOTE | 2017-08-18 11:53 | NUR ---
PT WAS A RECENT RESIDENT OF [facility]. CALLED THEM TO VERIFY PTS MEDS BECAUSE HE HAS NOT FILLED HIS MEDS RECENTLY WITH HIS LISTED PHARMACY. MED REC UP TO DATE PER MEDS THAT [facility] HAD ON FILE. NOTIFIED.
--- NOTE | 2017-08-18 13:19 | NUR ---
's ANSWERING SERVICE NOTIFIED OF CONSULT. AWAITING CALL BACK.
[2017-08-18] MEDS ORDERED: NOVOLOG FL100 UNIT/1 SQ (14:24)
--- NOTE | 2017-08-18 14:54 | NUR ---
INFORMED OF CONSULT.
[2017-08-19] VITALS: BP 112/52
[2017-08-19 04:00] VITALS: BP 105/49
--- NOTE | 2017-08-19 04:00 | NUR ---
PT RESTING IN BED NO ACUTE DISTRESS NOTED AT THIS TIME. WILL CONTINUE TO MONITOR
--- NOTE | 2017-08-19 06:29 | NUR ---
RN NOTIFIED DR CAMPBELL FOR ABD WOUND CONSULT. NO NEW ORDERS RECEIVED.
[2017-08-19 08:00] VITALS: BP 144/88
--- NOTE | 2017-08-19 10:08 | NUR ---
PT IN BED, SLEEPING BUT EASILY AROUSED. NO C/O AT THIS TIME. TOLERATED MEDICATINOS WELL. WILL CONTINUE TO MONITOR.
--- NOTE | 2017-08-19 10:39 | NUR ---
MATERIALS RECYCLER PHONE #: (GILL) [phone], HELP HOTLINE AFTER 5PM & WEEKENDS [phone]
[2017-08-19 12:00] VITALS: BP 132/80
--- NOTE | 2017-08-19 13:36 | NUR ---
SURGICAL SITES ON MIDSTERNAL CHEST WERE COVERED PER 'S ORDERS. THE SITES WERE CLEANSES WITH NORMAL SALINE AND SKIN WAS PREPPED WITH PROTECTIVE NO-STING WIPES. VERSATEL & THERAHONEY WAS APPLIED TO WOUNDS AND COVERED WITH OPTIFOAM GENTLE. WOUNDS DUE FOR CHANGE AGAIN ON 08/21/17. PT TOLERATED WELL WITH MINIMAL PAIN. TYLENOL WAS GIVEN PER PT, REQUEST. PAIN RATED AT 5 OUT OF 10 AND IS DESCRIBED DULL AND ITCHY. WILL CONTINUE TO MONITOR.
[2017-08-19 16:00] VITALS: BP 124/65
--- NOTE | 2017-08-19 17:01 | NUR ---
PER PT IS OK TO BE DISCHARGED FROM CARDIOLOGY STAND [facility]INT.
--- NOTE | 2017-08-19 17:31 | NUR ---
PT REFUSES TO HAVE DISCHARGE PICTURES TAKEN. NURSING EBAY RESELLER NOTIFIED.
--- NOTE | 2017-08-19 18:37 | NUR ---
Discharge instructions reviewed with patient/family. Patient receptive and verbalizes understanding. Follow-up care arranged. Written instructions given to patient/family. BHUMIKA EPPERSON
== END 2017-08-19 18:37 | disposition home or self-care (01) | DRG 292 ==
LOC: ED 08:01 → 5E 10:26
PROVIDERS: Emergency Medicine; ADMIT Internal Medicine
DX: I11.0 Hypertensive heart disease with heart failure (principal); Z68.42 Body mass index [BMI] 45.0-49.9, adult; E66.01 Morbid (severe) obesity due to excess calories; E11.65 Type 2 diabetes mellitus with hyperglycemia; H90.5 Unspecified sensorineural hearing loss; J43.2 Centrilobular emphysema; I48.2 Chronic atrial fibrillation; Z79.01 Long term (current) use of anticoagulants; R07.89 Other chest pain; I50.33 Acute on chronic diastolic (congestive) heart failure; E78.00 Pure hypercholesterolemia, unspecified; I87.2 Venous insufficiency (chronic) (peripheral); E78.2 Mixed hyperlipidemia; K21.9 Gastro-esophageal reflux disease without esophagitis; Z86.14 Personal history of Methicillin resistant Staphylococcus aureus infection; Z79.899 Other long term (current) drug therapy; Z82.49 Family history of ischemic heart disease and other diseases of the circulatory system; Z83.3 Family history of diabetes mellitus; Z80.9 Family history of malignant neoplasm, unspecified

== ENCOUNTER 2017-11-14 11:40 | Emergency (ER) | payer MEDICARE ==
[~2017-11-14] VITALS: Ht 160 cm; Wt 120.7 kg
[~2017-11-14 11:40] MED LIST changes: +LOPRESSOR25 MG PO; +MELATONIN3 MG PO; +NOVOLIN 70100 UNIT/1 SQ; +NOVOLOG FL100 UNIT/1 SQ; +Zaroxolyn,Diul2.5 MG PO
[2017-11-14 16:30] LABS: BASO # 0.1 10*3/uL (0.0-0.1); BASO % 0.6 % (0.0-1.0); EOS # 0.3 10*3/uL (0.0-0.4); EOS % 2.7 % (1.0-4.0); HEMATOCRIT 51.7 % (42.0-52.0); HEMOGLOBIN 16.5 g/dl (14.0-18.0); LYMPH # 1.9 10*3/uL (1.3-4.4); LYMPH % 19.2 % (27.0-41.0); MEAN CELL VOLUME 89.4 fl (80.0-94.0); MEAN CORPUSCULAR HGB 28.5 pg (27.0-31.0); MEAN CORPUSCULAR HGB CONC 31.9 g/dl (33.0-37.0); MEAN PLATELET VOLUME 10.2 fl (9.6-12.3); MONO # 1.1 10*3/uL (0.1-1.0); MONO % 11.2 % (3.0-9.0); NEUT # 6.7 10*3/uL (2.3-7.9); PLATELET COUNT AUTOMATED 270 10*3/uL (130-400); RED BLOOD COUNT 5.78 10*6/uL (4.50-5.90); RED CELL DISTRI WIDTH 13.9 % (0-14.5); WHITE BLOOD COUNT 10.1 10*3/uL (4.8-10.8)
[2017-11-14 16:52] LABS: ALBUMIN 3.7 gm/dl (3.1-4.5); ALKALINE PHOSPHATASE 123 U/L (45-117); BUN 24 mg/dl (7-24); CHLORIDE 101 mmol/L (98-107); CREATININE 1.05 mg/dL (0.70-1.30); SGOT/AST 18 IU/L (3-35); SGPT/ALT 30 U/L (12-78); SODIUM 138 mmol/L (136-145); TOTAL PROTEIN 8.3 gm/dL (6.4-8.2); TROPONIN I < 0.015 ng/ml (<0.045)
== END 2017-11-14 18:17 | disposition left against medical advice (07) ==
LOC: ED 11:40
PROVIDERS: Emergency Medicine
DX: R07.9 Chest pain, unspecified (principal); L29.9 Pruritus, unspecified; I11.0 Hypertensive heart disease with heart failure; I50.9 Heart failure, unspecified; K21.9 Gastro-esophageal reflux disease without esophagitis; I48.2 Chronic atrial fibrillation; E11.9 Type 2 diabetes mellitus without complications; Z79.899 Other long term (current) drug therapy

== ENCOUNTER 2018-04-12 12:31 | Inpatient (IN) | payer MEDICARE ==
[~2018-04-12] VITALS: Ht 173 cm; Wt 122.5 kg
--- NOTE | ~2018-04-12 | EKG ---
[place], [place] ELECTROCARDIOGRAM REPORT NAME: SHILPI FUENTES JR UNIT #: [id number] ROOM: 427 DOCTOR: LAURA DRAFT REPORT BIRTHDATE: [address] [facility] Test Date: 2018-04-12 Test Time: 12:41:57 Pat Name: SHILPI FUENTES Department: Room: Gender: Cash Register Operator: [facility] : 1950 Requested By: LOGAN TIWARI Order Number: [id number] Reading MD: Michael Knutson MD Measurements Intervals [place] Rate: 130 P: [place]: QRS: 86 QRSD: 83 T: 39 QT: 288 QTc: 424 Interpretive Statements Atrial fibrillation Borderline right axis deviation Possible anteroseptal infarct, old Electronically Signed On 04-16-2018 7:59:10 PDT by Michael Knutson MD CM:EKGRPT:ELECTROCARDIOGRAM REPORT [id number] LOGAN LOUIS DRAFT REPORT LOGAN TIWARI DO
[~2018-04-12 12:31] MED LIST changes: -DILTIAZEM240 M1 PO
[2018-04-12 12:44] VITALS: BP 151/78
[2018-04-12 12:56] LABS: BASO # 0.1 10*3/uL (0.0-0.1); BASO % 0.4 % (0.0-1.0); EOS # 0.2 10*3/uL (0.0-0.4); EOS % 1.4 % (1.0-4.0); HEMATOCRIT 50.6 % (42.0-52.0); HEMOGLOBIN 16.4 g/dl (14.0-18.0); LYMPH # 1.8 10*3/uL (1.3-4.4); LYMPH % 15.7 % (27.0-41.0); MEAN CELL VOLUME 92.2 fl (80.0-94.0); MEAN CORPUSCULAR HGB 29.9 pg (27.0-31.0); MEAN CORPUSCULAR HGB CONC 32.4 g/dl (33.0-37.0); MONO # 1.3 10*3/uL (0.1-1.0); MONO % 10.9 % (3.0-9.0); NEUT # 8.2 10*3/uL (2.3-7.9); NEUT % 71.3 % (47.0-73.0); PLATELET COUNT AUTOMATED 264 10*3/uL (130-400); RED BLOOD COUNT 5.49 10*6/uL (4.50-5.90); WHITE BLOOD COUNT 11.5 10*3/uL (4.8-10.8)
[2018-04-12 13:04] LABS: ACT PARTIAL THROMBO TIME 27.9 SECONDS (20.8-31.5); INTERNATIONAL NORM RATIO 1.1 (2.0-3.5)
[2018-04-12 13:11] LABS: ALBUMIN 3.6 gm/dl (3.1-4.5); ALKALINE PHOSPHATASE 97 U/L (45-117); BUN 22 mg/dl (7-24); CHLORIDE 106 mmol/L (98-107); CREATININE 1.14 mg/dL (0.70-1.30); LIPASE 97 U/L (73-393); POTASSIUM 4.1 mmol/L (3.5-5.1); SGOT/AST 25 IU/L (3-35); SGPT/ALT 35 U/L (12-78); SODIUM 139 mmol/L (136-145); TOTAL PROTEIN 7.8 gm/dL (6.4-8.2)
[2018-04-12 13:12] LABS: TROPONIN I < 0.015 ng/ml (<0.045)
[2018-04-12 13:49] VITALS: BP 125/76
[2018-04-12 15:00] VITALS: BP 142/82
[2018-04-12 16:00] VITALS: BP 138/76
[2018-04-12] MEDS ORDERED: LASIX20 MG PO (18:05)
[2018-04-12] MEDS ORDERED: SPIRIVA18 MCG PO (18:07)
[2018-04-12] MEDS ORDERED: PROAIR HFA8.5 GM INH (18:08)
[2018-04-12] MEDS ORDERED: XARE20MG PO (18:10)
[2018-04-12 20:00] VITALS: BP 120/65
[2018-04-13] VITALS: BP 157/88
[2018-04-13 07:07] LABS: BASO % 0.5 % (0.0-1.0); EOS # 0.3 10*3/uL (0.0-0.4); EOS % 3.4 % (1.0-4.0); HEMATOCRIT 50.2 % (42.0-52.0); HEMOGLOBIN 16.3 g/dl (14.0-18.0); LYMPH # 1.3 10*3/uL (1.3-4.4); LYMPH % 14.5 % (27.0-41.0); MEAN CELL VOLUME 93.1 fl (80.0-94.0); MEAN CORPUSCULAR HGB 30.2 pg (27.0-31.0); MEAN CORPUSCULAR HGB CONC 32.5 g/dl (33.0-37.0); MEAN PLATELET VOLUME 10.1 fl (9.6-12.3); MONO % 11.8 % (3.0-9.0); NEUT % 69.6 % (47.0-73.0); PLATELET COUNT AUTOMATED 228 10*3/uL (130-400); RED BLOOD COUNT 5.39 10*6/uL (4.50-5.90); RED CELL DISTRI WIDTH 14.2 % (0-14.5); WHITE BLOOD COUNT 8.6 10*3/uL (4.8-10.8)
[2018-04-13 07:30] LABS: BUN 20 mg/dl (7-24); CHLORIDE 105 mmol/L (98-107); CHOLESTEROL 103 mg/dL (<200); CREATININE 1.02 mg/dL (0.70-1.30); HDL CHOLESTEROL 37 mg/dl (40-60); LDL CHOLESTEROL 51 mg/dL (9-159); PHOSPHOROUS 2.7 mg/dL (2.5-4.9); POTASSIUM 4.1 mmol/L (3.5-5.1); SODIUM 139 mmol/L (136-145); TRIGLYCERIDES 77 mg/dl (<150); VLDL CHOLESTEROL 15 mg/dL (6-40)
[2018-04-13 07:39] LABS: FREE T4 0.96 ng/dl (0.76-1.46)
[2018-04-13 08:00] VITALS: BP 132/73
[2018-04-13 12:00] VITALS: BP 143/77
[2018-04-13 16:00] VITALS: BP 122/64
[2018-04-13 20:00] VITALS: BP 111/72
[2018-04-14] VITALS: BP 131/74
[2018-04-14 06:43] LABS: BASO # 0.1 10*3/uL (0.0-0.1); BASO % 0.7 % (0.0-1.0); EOS # 0.3 10*3/uL (0.0-0.4); EOS % 2.9 % (1.0-4.0); HEMATOCRIT 51.2 % (42.0-52.0); HEMOGLOBIN 16.5 g/dl (14.0-18.0); LYMPH # 1.4 10*3/uL (1.3-4.4); MEAN CELL VOLUME 92.9 fl (80.0-94.0); MEAN CORPUSCULAR HGB 29.9 pg (27.0-31.0); MEAN CORPUSCULAR HGB CONC 32.2 g/dl (33.0-37.0); MEAN PLATELET VOLUME 10.4 fl (9.6-12.3); MONO # 1.2 10*3/uL (0.1-1.0); MONO % 12.2 % (3.0-9.0); NEUT % 69.8 % (47.0-73.0); PLATELET COUNT AUTOMATED 241 10*3/uL (130-400); RED BLOOD COUNT 5.51 10*6/uL (4.50-5.90); RED CELL DISTRI WIDTH 14.3 % (0-14.5); WHITE BLOOD COUNT 10.1 10*3/uL (4.8-10.8)
[2018-04-14 07:06] LABS: BUN 26 mg/dl (7-24); CHLORIDE 103 mmol/L (98-107); CREATININE 1.12 mg/dL (0.70-1.30); POTASSIUM 3.9 mmol/L (3.5-5.1); SODIUM 139 mmol/L (136-145)
[2018-04-14 08:00] VITALS: BP 111/73
[2018-04-14 12:00] VITALS: BP 102/65
[2018-04-14] MEDS ORDERED: Lac-Hydrin 12%340 GM T (13:24)
[2018-04-14 16:00] VITALS: BP 112/57
[2018-05-07] MEDS ORDERED: CEPHALEXIN500 M1 PO (12:53)
== END 2018-04-14 16:46 | disposition home or self-care (01) | DRG 205 ==
LOC: ED 12:31 → 4E 14:13
PROVIDERS: Emergency Medicine; Internal Medicine; Student in an Organized Health Care Education/Training Program
DX: M94.0 Chondrocostal junction syndrome [Tietze] (principal); J18.9 Pneumonia, unspecified organism; I11.0 Hypertensive heart disease with heart failure; I48.2 Chronic atrial fibrillation; I50.32 Chronic diastolic (congestive) heart failure; E66.01 Morbid (severe) obesity due to excess calories; E83.41 Hypermagnesemia; B35.1 Tinea unguium; D72.829 Elevated white blood cell count, unspecified; Z68.41 Body mass index [BMI] 40.0-44.9, adult; E11.9 Type 2 diabetes mellitus without complications; R00.0 Tachycardia, unspecified; K21.9 Gastro-esophageal reflux disease without esophagitis; F41.9 Anxiety disorder, unspecified; R79.82 Elevated C-reactive protein (CRP); R79.89 Other specified abnormal findings of blood chemistry; H91.3 Deaf nonspeaking, not elsewhere classified; E78.2 Mixed hyperlipidemia; I87.2 Venous insufficiency (chronic) (peripheral); J30.2 Other seasonal allergic rhinitis; Z79.4 Long term (current) use of insulin; Z79.899 Other long term (current) drug therapy; Z82.49 Family history of ischemic heart disease and other diseases of the circulatory system; Z83.3 Family history of diabetes mellitus; Z80.8 Family history of malignant neoplasm of other organs or systems

== ENCOUNTER → 2018-05-18 | Outpatient (CLI) | payer MEDICARE ==
[~2018-05-18] MED LIST changes: +CEPHALEXIN500 M1 PO; +KENALOG 0.1% LO60 ML T; +LASIX20 MG PO; +Lac-Hydrin 12%340 GM T
== END | disposition home or self-care (01) ==
LOC: WOUNDCARE 05:42
DX: E11.622 Type 2 diabetes mellitus with other skin ulcer (principal); L97.821 Non-pressure chronic ulcer of other part of left lower leg limited to breakdown of skin; L97.811 Non-pressure chronic ulcer of other part of right lower leg limited to breakdown of skin; I87.313 Chronic venous hypertension (idiopathic) with ulcer of bilateral lower extremity; E11.40 Type 2 diabetes mellitus with diabetic neuropathy, unspecified; E11.51 Type 2 diabetes mellitus with diabetic peripheral angiopathy without gangrene; R21 Rash and other nonspecific skin eruption; H91.3 Deaf nonspeaking, not elsewhere classified

== ENCOUNTER → 2018-05-30 | Outpatient (CLI) | payer MEDICARE | END | disposition home or self-care (01) | LOC: WOUNDCARE 05-25 10:53 → US 02:27 → WOUNDCARE 02:27 | DX: I73.9 Peripheral vascular disease, unspecified (principal) ==

== ENCOUNTER → 2018-05-31 | Outpatient (CLI) | payer MEDICARE ==
[2018-05-31 14:15] LABS: BASO # 0.1 10*3/uL (0.0-0.1); BASO % 0.6 % (0.0-1.0); EOS # 0.2 10*3/uL (0.0-0.4); EOS % 2.4 % (1.0-4.0); HEMATOCRIT 50.1 % (42.0-52.0); HEMOGLOBIN 16.5 g/dl (14.0-18.0); LYMPH # 1.7 10*3/uL (1.3-4.4); MEAN CELL VOLUME 93.6 fl (80.0-94.0); MEAN CORPUSCULAR HGB 30.8 pg (27.0-31.0); MEAN CORPUSCULAR HGB CONC 32.9 g/dl (33.0-37.0); MEAN PLATELET VOLUME 10.3 fl (9.6-12.3); MONO # 0.9 10*3/uL (0.1-1.0); MONO % 9.7 % (3.0-9.0); NEUT # 6.4 10*3/uL (2.3-7.9); NEUT % 68.9 % (47.0-73.0); PLATELET COUNT AUTOMATED 230 10*3/uL (130-400); RED BLOOD COUNT 5.35 10*6/uL (4.50-5.90); RED CELL DISTRI WIDTH 13.4 % (0-14.5); WHITE BLOOD COUNT 9.2 10*3/uL (4.8-10.8)
[2018-05-31 14:33] LABS: BUN 26 mg/dl (7-24); CHLORIDE 108 mmol/L (98-107); CREATININE 1.21 mg/dL (0.70-1.30); POTASSIUM 4.4 mmol/L (3.5-5.1); SODIUM 142 mmol/L (136-145)
== END | disposition home or self-care (01) ==
LOC: LAB 05:17 → WOUNDCARE 05:17
PROVIDERS: Internal Medicine Cardiovascular Disease
DX: E11.622 Type 2 diabetes mellitus with other skin ulcer (principal); L97.821 Non-pressure chronic ulcer of other part of left lower leg limited to breakdown of skin; I87.312 Chronic venous hypertension (idiopathic) with ulcer of left lower extremity; E11.40 Type 2 diabetes mellitus with diabetic neuropathy, unspecified; E11.51 Type 2 diabetes mellitus with diabetic peripheral angiopathy without gangrene; H91.3 Deaf nonspeaking, not elsewhere classified

== ENCOUNTER → 2018-06-07 | Outpatient (CLI) | payer MEDICARE | END | disposition home or self-care (01) | LOC: WOUNDCARE 03:38 | DX: E11.622 Type 2 diabetes mellitus with other skin ulcer (principal); L97.828 Non-pressure chronic ulcer of other part of left lower leg with other specified severity; I87.312 Chronic venous hypertension (idiopathic) with ulcer of left lower extremity; I87.301 Chronic venous hypertension (idiopathic) without complications of right lower extremity; E11.51 Type 2 diabetes mellitus with diabetic peripheral angiopathy without gangrene; H91.3 Deaf nonspeaking, not elsewhere classified; E11.40 Type 2 diabetes mellitus with diabetic neuropathy, unspecified ==

== ENCOUNTER → 2018-06-12 | Outpatient (CLI) | payer MEDICARE | END | disposition home or self-care (01) | LOC: CARD 13:41 | DX: I07.1 Rheumatic tricuspid insufficiency (principal); I48.1 Persistent atrial fibrillation; I50.33 Acute on chronic diastolic (congestive) heart failure ==

== ENCOUNTER 2018-06-17 23:32 | Inpatient (IN) | payer MEDICARE ==
[~2018-06-17] VITALS: Ht 160 cm; Wt 125.9 kg
--- NOTE | ~2018-06-17 | EKG ---
[place], [place] ELECTROCARDIOGRAM REPORT NAME: SHILPI FUENTES JR UNIT #: [id number] ROOM: 424 DOCTOR: LAURA DRAFT REPORT BIRTHDATE: [birth year] [facility] [place] Test Date: 2018-06-18 Test Time: 05:34:20 Pat Name: SHILPI FUENTES Department: Room: 424 Gender: M Stretcher Drier Operator: Mary Jo Dc : 1950 Requested By: ANTONINO RAMIREZ Order Number: [id number] Reading MD: Griffin Whitfield MD Measurements Intervals [place] Rate: 84 P: [place]: QRS: 87 QRSD: 83 T: 53 QT: 341 QTc: 404 Interpretive Statements Atrial fibrillation Abnormal ECG Compared to ECG 04/12/2018 12:41:57 No significant changes Electronically Signed On 06-18-2018 14:09:24 PDT by Griffin Whitfield MD CM:EKGRPT:ELECTROCARDIOGRAM REPORT [id number] ANTONINO LOUIS DRAFT REPORT ANTONINO RAMIREZ DO
--- NOTE | ~2018-06-17 | EKG ---
[place], [place] ELECTROCARDIOGRAM REPORT NAME: SHILPI FUENTES JR UNIT #: [id number] ROOM: 424 DOCTOR: LAURA DRAFT REPORT BIRTHDATE: [address] [facility] Test Date: 2018-06-17 Test Time: 23:38:31 Pat Name: SHILPI FUENTES Department: Room: 424 Gender: M Coarse Wire Drawer: Lashell Novak : 1950 Requested By: ANTONINO RAMIREZ Order Number: [id number] Reading MD: Griffin Whitfield MD Measurements Intervals [place] Rate: 102 P: [place]: QRS: 88 QRSD: 81 T: 38 QT: 330 QTc: 430 Interpretive Statements Atrial fibrillation Borderline right axis deviation Anteroseptal infarct, old Compared to ECG 04/12/2018 12:41:57 No significant changes Electronically Signed On 06-18-2018 14:08:34 PDT by Griffin Whitfield MD CM:EKGRPT:ELECTROCARDIOGRAM REPORT 1408 ANTONINO LOUIS DRAFT REPORT ANTONINO RAMIREZ DO
--- NOTE | ~2018-06-17 | EKG ---
[place], [place] ELECTROCARDIOGRAM REPORT NAME: SHILPI FUENTES JR UNIT #: [id number] ROOM: 424 DOCTOR: LAURA DRAFT REPORT BIRTHDATE: [birth year] [facility] [place] [facility] Test Date: 2018-06-18 Test Time: 02:56:50 Pat Name: SHILPI FUENTES Department: Room: 424 Gender: M Bailing Machine Operator: Omid Rg : 1950 Requested By: ANTONINO RAMIREZ Order Number: [id number] Reading MD: Griffin Whitfield MD Measurements Intervals [place] Rate: 97 P: [place]: QRS: 77 QRSD: 86 T: 42 QT: 368 QTc: 468 Interpretive Statements Atrial fibrillation Compared to ECG 04/12/2018 12:41:57 Myocardial infarct finding no longer present Electronically Signed On 06-18-2018 14:08:50 PDT by Griffin Whitfield MD CM:EKGRPT:ELECTROCARDIOGRAM REPORT [id number] 1408 ANTONINO LOUIS DRAFT REPORT ANTONINO RAMIREZ DO
[~2018-06-17 23:32] MED LIST changes: -KENALOG 0.1% LO60 ML T
[2018-06-17 23:46] LABS: BASO # 0.1 10*3/uL (0.0-0.1); BASO % 0.7 % (0.0-1.0); EOS # 0.3 10*3/uL (0.0-0.4); EOS % 2.7 % (1.0-4.0); HEMATOCRIT 51.7 % (42.0-52.0); HEMOGLOBIN 17.2 g/dl (14.0-18.0); LYMPH # 2.3 10*3/uL (1.3-4.4); LYMPH % 19.2 % (27.0-41.0); MEAN CORPUSCULAR HGB 30.9 pg (27.0-31.0); MEAN CORPUSCULAR HGB CONC 33.3 g/dl (33.0-37.0); MEAN PLATELET VOLUME 10.4 fl (9.6-12.3); MONO # 1.3 10*3/uL (0.1-1.0); MONO % 11.1 % (3.0-9.0); NEUT # 7.7 10*3/uL (2.3-7.9); PLATELET COUNT AUTOMATED 241 10*3/uL (130-400); RED BLOOD COUNT 5.56 10*6/uL (4.50-5.90); RED CELL DISTRI WIDTH 13.3 % (0-14.5); WHITE BLOOD COUNT 11.7 10*3/uL (4.8-10.8)
[2018-06-17 23:47] VITALS: BP 156/98
[2018-06-17 23:56] LABS: ACT PARTIAL THROMBO TIME 37.7 SECONDS (20.8-31.5); INTERNATIONAL NORM RATIO 1.3 (2.0-3.5)
[2018-06-18] VITALS (7 sets, daily range): BP systolic 102–142; BP diastolic 54–91
[2018-06-18 00:08] LABS: ALBUMIN 3.7 gm/dl (3.1-4.5); ALKALINE PHOSPHATASE 102 U/L (45-117); BUN 27 mg/dl (7-24); CHLORIDE 103 mmol/L (98-107); CREATININE 1.19 mg/dL (0.70-1.30); POTASSIUM 4.1 mmol/L (3.5-5.1); SGOT/AST 11 IU/L (3-35); SGPT/ALT 31 U/L (12-78); SODIUM 137 mmol/L (136-145)
[2018-06-18 00:09] LABS: TROPONIN I < 0.015 ng/ml (<0.045)
[2018-06-18] MEDS ORDERED: LASIX40 MG PO (03:22)
[2018-06-18] MEDS ORDERED: VITAMIN D50000 UNIT PO (03:25)
[2018-06-18] MEDS ORDERED: KENALOG 0.1% LO60 ML T (03:27)
[2018-06-19] VITALS: BP 119/68
[2018-06-19 06:18] LABS: BUN 27 mg/dl (7-24); CHLORIDE 102 mmol/L (98-107); CREATININE 1.03 mg/dL (0.70-1.30); PHOSPHOROUS 3.3 mg/dL (2.5-4.9); POTASSIUM 4.5 mmol/L (3.5-5.1); SODIUM 138 mmol/L (136-145)
[2018-06-19 08:00] VITALS: BP 134/85
[2018-06-19 12:00] VITALS: BP 125/70
[2018-06-19 16:00] VITALS: BP 113/69
[2018-06-19 20:00] VITALS: BP 125/82
[2018-06-20] VITALS: BP 115/61
[2018-06-20 12:00] VITALS: BP 126/60
== END 2018-06-20 13:55 | disposition home or self-care (01) | DRG 206 ==
LOC: ED 23:32 → EDHOLD 06-18 01:30 → 4E 06-18 01:30
PROVIDERS: Emergency Medicine; Student in an Organized Health Care Education/Training Program
DX: M94.0 Chondrocostal junction syndrome [Tietze] (principal); Z68.42 Body mass index [BMI] 45.0-49.9, adult; I50.32 Chronic diastolic (congestive) heart failure; H91.3 Deaf nonspeaking, not elsewhere classified; R79.89 Other specified abnormal findings of blood chemistry; E11.9 Type 2 diabetes mellitus without complications; I48.2 Chronic atrial fibrillation; K21.9 Gastro-esophageal reflux disease without esophagitis; E78.2 Mixed hyperlipidemia; D72.821 Monocytosis (symptomatic); D72.810 Lymphocytopenia; E83.41 Hypermagnesemia; E66.01 Morbid (severe) obesity due to excess calories; I11.0 Hypertensive heart disease with heart failure; E55.9 Vitamin D deficiency, unspecified; Z82.49 Family history of ischemic heart disease and other diseases of the circulatory system; Z83.3 Family history of diabetes mellitus; Z79.84 Long term (current) use of oral hypoglycemic drugs; Z80.9 Family history of malignant neoplasm, unspecified

== ENCOUNTER → 2018-07-04 | Outpatient (CLI) | payer MEDICARE ==
[~2018-07-04] MED LIST changes: +KENALOG 0.1% LO60 ML T
== END | disposition home or self-care (01) ==
LOC: RESCLI 01:19
DX: I10 Essential (primary) hypertension (principal); E11.9 Type 2 diabetes mellitus without complications; J40 Bronchitis, not specified as acute or chronic; I48.0 Paroxysmal atrial fibrillation; E78.2 Mixed hyperlipidemia; E55.9 Vitamin D deficiency, unspecified; H91.3 Deaf nonspeaking, not elsewhere classified; E66.01 Morbid (severe) obesity due to excess calories; R05 Cough

== ENCOUNTER → 2018-07-26 | Outpatient (CLI) | payer MEDICARE ==
[2018-07-26 09:46] LABS: ALBUMIN 3.6 gm/dl (3.1-4.5); BILIRUBIN, DIRECT 0.2 mg/dL (0.0-0.2); BUN 21 mg/dl (7-24); CHLORIDE 106 mmol/L (98-107); CHOLESTEROL 101 mg/dL (<200); CREATININE 1.17 mg/dL (0.70-1.30); POTASSIUM 4.3 mmol/L (3.5-5.1); SGOT/AST 20 IU/L (3-35); SGPT/ALT 38 U/L (12-78); SODIUM 140 mmol/L (136-145); TOTAL PROTEIN 7.7 gm/dL (6.4-8.2); TRIGLYCERIDES 66 mg/dl (<150); VLDL CHOLESTEROL 13 mg/dL (6-40)
[2018-07-26 09:47] LABS: ALKALINE PHOSPHATASE 90 U/L (45-117); HDL CHOLESTEROL 41 mg/dl (40-60); LDL CHOLESTEROL 47 mg/dL (9-159)
== END | disposition home or self-care (01) ==
LOC: LAB 08:57
PROVIDERS: Internal Medicine Cardiovascular Disease
DX: I48.1 Persistent atrial fibrillation (principal); E78.2 Mixed hyperlipidemia

== ENCOUNTER 2018-08-12 19:57 | Emergency (ER) | payer MEDICARE ==
[~2018-08-12] VITALS: Ht 162.5 cm; Wt 136.1 kg
--- NOTE | ~2018-08-12 | EKG ---
[place], [place] ELECTROCARDIOGRAM REPORT NAME: SHILPI FUENTES JR UNIT #: [id number] ROOM: DOCTOR: EPIPHANY DRAFT REPORT BIRTHDATE: [birth year] [facility] Test Date: 2018-08-12 Test Time: 21:13:36 Pat Name: SHILPI FUENTES Department: Room: Gender: Electric Serviceman: Mary Jo Dc : 1950 Requested By: ANTONINO RAMIREZ Order Number: [id number] Reading MD: Wil Escobar MD Measurements Intervals [place] Rate: 125 P: [place]: QRS: 78 QRSD: 74 T: 29 QT: 284 QTc: 410 Interpretive Statements Atrial fibrillation Probable anteroseptal infarct, old Compared to ECG 06/18/2018 05:34:20 Myocardial infarct finding now present Electronically Signed On 08-13-2018 7:50:36 PST by Wil Escobar MD CM:EKGRPT:ELECTROCARDIOGRAM REPORT 12 0750 ANTONINO LOUIS DRAFT REPORT ANTONINO RAMIREZ DO
[2018-08-12 21:12] LABS: BILIRUBIN NEGATIVE (NEGATIVE); BLOOD NEGATIVE (NEGATIVE); CLARITY CLEAR (CLEAR); COLOR YELLOW (YELLOW); GLUCOSE NEGATIVE (NEGATIVE); KETONE NEGATIVE (NEGATIVE); LEUKO ESTERASE NEGATIVE (NEGATIVE); NITRITE NEGATIVE (NEGATIVE); PH 6.5 (5.0-9.0); SPECIFIC GRAVITY 1.015 (1.005-1.030); UROBILINOGEN 0.2 E.U./dl (0.2-1.0)
[2018-08-12 21:13] LABS: BASO # 0.1 10*3/uL (0.0-0.1); BASO % 0.5 % (0.0-1.0); EOS # 0.3 10*3/uL (0.0-0.4); EOS % 3.5 % (1.0-4.0); HEMATOCRIT 51.1 % (42.0-52.0); HEMOGLOBIN 16.8 g/dl (14.0-18.0); LYMPH # 1.4 10*3/uL (1.3-4.4); LYMPH % 15.3 % (27.0-41.0); MEAN CELL VOLUME 93.4 fl (80.0-94.0); MEAN CORPUSCULAR HGB 30.7 pg (27.0-31.0); MEAN CORPUSCULAR HGB CONC 32.9 g/dl (33.0-37.0); MEAN PLATELET VOLUME 10.5 fl (9.6-12.3); MONO % 10.8 % (3.0-9.0); NEUT # 6.4 10*3/uL (2.3-7.9); NEUT % 69.4 % (47.0-73.0); PLATELET COUNT AUTOMATED 252 10*3/uL (130-400); RED BLOOD COUNT 5.47 10*6/uL (4.50-5.90); WHITE BLOOD COUNT 9.3 10*3/uL (4.8-10.8)
[2018-08-12 21:30] LABS: ALBUMIN 3.4 gm/dl (3.1-4.5); ALKALINE PHOSPHATASE 99 U/L (45-117); BUN 23 mg/dl (7-24); CHLORIDE 104 mmol/L (98-107); CREATININE 1.14 mg/dL (0.70-1.30); POTASSIUM 4.4 mmol/L (3.5-5.1); SGOT/AST 17 IU/L (3-35); SGPT/ALT 40 U/L (12-78); SODIUM 137 mmol/L (136-145); TOTAL PROTEIN 7.7 gm/dL (6.4-8.2)
[2018-08-12 21:30] LABS: BACTERIA TRACE
[2018-08-12 21:33] LABS: TROPONIN I < 0.015 ng/ml (<0.045)
== END 2018-08-13 00:55 | disposition home or self-care (01) ==
LOC: ED 19:57
PROVIDERS: Emergency Medicine
DX: R10.9 Unspecified abdominal pain (principal); R06.02 Shortness of breath; I48.2 Chronic atrial fibrillation; E11.9 Type 2 diabetes mellitus without complications; I11.0 Hypertensive heart disease with heart failure; I50.30 Unspecified diastolic (congestive) heart failure; K21.9 Gastro-esophageal reflux disease without esophagitis; E78.2 Mixed hyperlipidemia; E66.01 Morbid (severe) obesity due to excess calories; Z79.899 Other long term (current) drug therapy; Z79.84 Long term (current) use of oral hypoglycemic drugs

== ENCOUNTER → 2018-10-18 | Outpatient (CLI) | payer MEDICARE ==
[~2018-10-18] MED LIST changes: +AVPAK METFORMI500 M1 PO; +CARDURA4 MG PO; +FINASTERIDE5 M1 PO; +KLOR-CON 1010 ME1 PO; -KLOR-CON SPRIN10 MEQ PO; +METOPROLOL TART50 M1 PO; +PEPCID20 MG PO
== END | disposition home or self-care (01) ==
LOC: RESCLI 15:39
DX: I48.0 Paroxysmal atrial fibrillation (principal); I10 Essential (primary) hypertension; E66.01 Morbid (severe) obesity due to excess calories; E11.9 Type 2 diabetes mellitus without complications; E78.2 Mixed hyperlipidemia; E55.9 Vitamin D deficiency, unspecified; H91.3 Deaf nonspeaking, not elsewhere classified; R06.02 Shortness of breath; Z79.899 Other long term (current) drug therapy

== ENCOUNTER → 2018-11-15 | Outpatient (CLI) | payer MEDICARE ==
[~2018-11-15] MED LIST changes: +OMNICEF300 MG PO; +VIBRAMYCIN100 MG PO; +ZITHROMAX500 MG PO
[2018-11-15 13:27] LABS: BASO % 0.4 % (0.0-1.0); EOS # 0.2 10*3/uL (0.0-0.4); EOS % 2.1 % (1.0-4.0); HEMATOCRIT 52.5 % (42.0-52.0); LYMPH # 1.3 10*3/uL (1.3-4.4); LYMPH % 16.3 % (27.0-41.0); MEAN CELL VOLUME 94.6 fl (80.0-94.0); MEAN CORPUSCULAR HGB 30.6 pg (27.0-31.0); MEAN CORPUSCULAR HGB CONC 32.4 g/dl (33.0-37.0); MEAN PLATELET VOLUME 10.2 fl (9.6-12.3); MONO # 0.8 10*3/uL (0.1-1.0); MONO % 10.6 % (3.0-9.0); NEUT # 5.5 10*3/uL (2.3-7.9); NEUT % 70.3 % (47.0-73.0); PLATELET COUNT AUTOMATED 217 10*3/uL (130-400); RED BLOOD COUNT 5.55 10*6/uL (4.50-5.90); RED CELL DISTRI WIDTH 13.3 % (0-14.5); WHITE BLOOD COUNT 7.8 10*3/uL (4.8-10.8)
[2018-11-15 13:50] LABS: BUN 20 mg/dl (7-24); CHLORIDE 106 mmol/L (98-107); CREATININE 1.11 mg/dL (0.70-1.30); POTASSIUM 4.5 mmol/L (3.5-5.1); SODIUM 141 mmol/L (136-145)
== END | disposition home or self-care (01) ==
LOC: LAB 13:10
PROVIDERS: Internal Medicine Cardiovascular Disease
DX: I50.32 Chronic diastolic (congestive) heart failure (principal); R06.09 Other forms of dyspnea

== ENCOUNTER → 2018-11-29 | Outpatient (CLI) | payer MEDICARE ==
--- NOTE | ~2018-11-29 | EKG ---
[place], [place] ELECTROCARDIOGRAM REPORT NAME: SHILPI FUENTES JR UNIT #: [id number] ROOM: DOCTOR: EPIPHANY DRAFT REPORT BIRTHDATE: [birth year] [facility] Test Date: 2018-11-29 Test Time: 14:56:04 Pat Name: SHILPI FUENTES Department: Room: Gender: Dental Receptionist: : 1950 Requested By: LIGIA FRAZIER Order Number: [id number] Reading MD: Measurements Intervals [place] Rate: 120 P: FL: QRS: 87 QRSD: 75 T: 17 QT: 299 QTc: 423 Interpretive Statements Atrial fibrillation Borderline right axis deviation Low voltage, precordial leads Probable anteroseptal infarct, old Compared to ECG 08/12/2018 21:13:36 Low QRS voltage now present Myocardial infarct finding still present CM:EKGRPT:ELECTROCARDIOGRAM REPORT 1456 1200 LIGIA LOUIS DRAFT REPORT LIGIA FRAZIER DO
== END | disposition home or self-care (01) ==
LOC: RESCLI 14:16
DX: I48.91 Unspecified atrial fibrillation (principal)

== ENCOUNTER 2019-01-07 04:03 | Emergency (ER) | payer MEDICARE ==
[~2019-01-07] VITALS: Wt 124.7 kg
--- NOTE | ~2019-01-07 | EKG ---
[place], [place] ELECTROCARDIOGRAM REPORT NAME: SHILPI FUENTES JR UNIT #: [id number] ROOM: DOCTOR: EPIPHANY DRAFT REPORT BIRTHDATE: [birth year] [facility] Test Date: 2019-01-07 Test Time: 04:29:41 Pat Name: SHILPI FUENTES Department: Room: Gender: Network Security Analyst: : 1950 Requested By: ANTONINO RAMIREZ Order Number: [id number] Reading MD: Hadley Dc MD Measurements Intervals [place] Rate: 102 P: [place]: QRS: 74 QRSD: 85 T: 26 QT: 314 QTc: 409 Interpretive Statements Atrial fibrillation Anteroseptal infarct, old Compared to ECG 12/18/2018 03:15:32 No significant changes Electronically Signed On 01-09-2019 9:37:22 PDT by Hadley Dc MD CM:EKGRPT:ELECTROCARDIOGRAM REPORT 0429 [id number] ANTONINO LOUIS DRAFT REPORT ANTONINO RAMIREZ DO
[~2019-01-07 04:03] MED LIST changes: -OMNICEF300 MG PO; -VIBRAMYCIN100 MG PO
[2019-01-07 04:41] LABS: BASO # 0.1 10*3/uL (0.0-0.1); BASO % 0.5 % (0.0-1.0); EOS # 0.4 10*3/uL (0.0-0.4); EOS % 3.9 % (1.0-4.0); HEMATOCRIT 56.1 % (42.0-52.0); LYMPH # 1.7 10*3/uL (1.3-4.4); LYMPH % 16.7 % (27.0-41.0); MEAN CELL VOLUME 94.8 fl (80.0-94.0); MEAN CORPUSCULAR HGB 30.4 pg (27.0-31.0); MEAN CORPUSCULAR HGB CONC 32.1 g/dl (33.0-37.0); MEAN PLATELET VOLUME 10.8 fl (9.6-12.3); MONO % 10.3 % (3.0-9.0); NEUT # 6.8 10*3/uL (2.3-7.9); NEUT % 68.2 % (47.0-73.0); PLATELET COUNT AUTOMATED 201 10*3/uL (130-400); RED BLOOD COUNT 5.92 10*6/uL (4.50-5.90); RED CELL DISTRI WIDTH 13.9 % (0-14.5)
[2019-01-07 04:58] LABS: ALBUMIN 3.4 gm/dl (3.1-4.5); ALKALINE PHOSPHATASE 112 U/L (45-117); BUN 28 mg/dl (7-24); CHLORIDE 104 mmol/L (98-107); CREATININE 1.27 mg/dL (0.70-1.30); POTASSIUM 4.2 mmol/L (3.5-5.1); SGOT/AST 20 IU/L (3-35); SGPT/ALT 38 U/L (12-78); SODIUM 138 mmol/L (136-145); TOTAL PROTEIN 7.9 gm/dL (6.4-8.2)
[2019-01-07 04:59] LABS: TROPONIN I < 0.015 ng/ml (<0.045)
[2019-01-07 06:24] LABS: BILIRUBIN NEGATIVE (NEGATIVE); BLOOD 3+ (NEGATIVE); CLARITY CLOUDY (CLEAR); COLOR YELLOW (YELLOW); GLUCOSE NEGATIVE (NEGATIVE); KETONE NEGATIVE (NEGATIVE); LEUKO ESTERASE NEGATIVE (NEGATIVE); NITRITE NEGATIVE (NEGATIVE); PH 5.5 (5.0-9.0); SPECIFIC GRAVITY >= 1.030 (1.005-1.030); UROBILINOGEN 0.2 E.U./dl (0.2-1.0)
[2019-01-07 06:33] LABS: BACTERIA 1+; RBC TNTC rbc/hpf (0-2)
[2019-01-07] MEDS ORDERED: OMNICEF300 MG PO (07:03)
[2019-01-07] MEDS ORDERED: VIBRAMYCIN100 MG PO (07:03)
== END 2019-01-07 07:07 | disposition home or self-care (01) ==
LOC: ED 04:03
PROVIDERS: Emergency Medicine
DX: T83.038A Leakage of other urinary catheter, initial encounter (principal); J18.9 Pneumonia, unspecified organism; I48.2 Chronic atrial fibrillation; E11.65 Type 2 diabetes mellitus with hyperglycemia; I11.0 Hypertensive heart disease with heart failure; I50.9 Heart failure, unspecified; K21.9 Gastro-esophageal reflux disease without esophagitis; E66.01 Morbid (severe) obesity due to excess calories; Z68.39 Body mass index [BMI] 39.0-39.9, adult; Z98.890 Other specified postprocedural states; Z79.899 Other long term (current) drug therapy; Y92.89 Other specified places as the place of occurrence of the external cause

== ENCOUNTER 2019-04-25 11:16 | Inpatient (IN) | payer MEDICARE ==
[~2019-04-25] VITALS: Ht 160 cm; Wt 123.4 kg
--- NOTE | ~2019-04-25 | PR ---
[place], [place] PROGRESS NOTE NAME: SHILPI FUENTES JR UNIT #: [id number] ROOM: 425 DOCTOR: JOHN DOE,DECEMBER BIRTHDATE: [birth year] DOS: 04/27/2019 SUBJECTIVE: The patient is being followed for mild cellulitis of the left lower extremity where he has a wound. No cultures were obtained from the wound. His blood cultures remained sterile. He has been afebrile. He denies any nausea or vomiting, no diarrhea. No rash or itch. Pain in the left leg is about the same. No shortness of breath. The patient is deaf and mute. Communication is via paper and pen as well as gesturing. He remains on Ancef. LABORATORY DATA: Cultures as reviewed above. WBC is 9.0, platelets 235. BUN 24, creatinine 2.09. PHYSICAL EXAMINATION: VITAL SIGNS: Temperature 97.5, pulse 63, respirations 20, BP 115/54. GENERAL: A 69-year-old male, in no acute distress. HEENT: Normocephalic, no thrush. NECK: Supple. LUNGS: Clear to auscultation bilaterally. Respirations even and unlabored. HEART: Regular rhythm. No murmur appreciated. ABDOMEN: Soft, positive bowel sounds. EXTREMITIES: Bilateral lower extremities wrapped to the knees. No erythema above the dressings. SKIN: Warm, pale, dry, free of rashes. Sitting up in a chair. ASSESSMENT: Mild cellulitis of the left lower extremity as well as the wound. PLAN: Continue Ancef, is currently 2 grams IV q. 8 hours, but dose will be adjusted for his renal insufficiency. ADDENDUM I agree with the assessment and plan, reviewed the labs and imaging, made the necessary changes in the note. DECEMBER BROOK LOPEZ [place], [place] PROGRESS NOTE NAME: SHILPI FUENTES JR UNIT #: [id number] ROOM: 425 DOCTOR: JOHN DOEDECEMBER BIRTHDATE: [birth year] Jazzmine Saha MD CM:PNTRANS [id number] DECEMBER [facility] 05/04/19 0256 interface
--- NOTE | ~2019-04-25 | EKG ---
[place], [place] ELECTROCARDIOGRAM REPORT NAME: SHILPI FUENTES JR UNIT #: [id number] ROOM: 425 DOCTOR: LAURA DRAFT REPORT BIRTHDATE: [birth year] [place] Test Date: 2019-04-26 Test Time: 06:45:02 Pat Name: SHILPI FUENTES Department: Room: 425 1 Gender: M Equipment Or Machinery Cleaner: : 1950 Requested By: GEORGETTE GAY Order Number: [id number] Reading MD: Brent Warner MD Measurements Intervals [place] Rate: 83 P: 47 SD: 114 QRS: 101 QRSD: 85 T: 55 QT: 372 QTc: 437 Interpretive Statements Atrial fibrillation Borderline short SD interval Right axis deviation Low voltage, precordial leads Abnormal R-wave progression, late transition Baseline wander in lead(s) V4 Compared to ECG 01/17/2019 13:41:17 Right-axis deviation now present Electronically Signed On 04-26-2019 11:23:39 PDT by Brent Warner MD CM:EKGRPT:ELECTROCARDIOGRAM REPORT [id number] GEORGETTE [place]IS DRAFT REPORT GEORGETTE GAY DO
--- NOTE | ~2019-04-25 | PR ---
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 He states his left leg pain is a little better today. He is requesting a Segura catheter, complaining of urinating continuously. No nausea, vomiting or diarrhea. Little shortness of breath. He has been afebrile. He remains on Ancef. PHYSICAL EXAMINATION: VITAL SIGNS: Show temperature 98.0, pulse 72, respirations 20, BP 125/70. GENERAL: Alert, responsive 69-year-old male who again is deaf. Communication is via paper and pen. He is in no acute distress. HEENT: Normocephalic, no thrush. NECK: Supple. LUNGS: Clear to auscultation bilaterally. Respirations even and unlabored. HEART: Regular rhythm. No murmur appreciated. ABDOMEN: Soft, obese, positive bowel sounds. EXTREMITIES: Left lower extremity with edema, it is wrapped to the knee, dressings are changed today. No erythema visible above his wrap. SKIN: Otherwise, warm, dry, free of rashes. LABORATORY DATA: Blood cultures remained sterile. WBCs 8.6, platelets 234. BUN 22, creatinine 1.81. ASSESSMENT: Left leg cellulitis, currently on Ancef, some improvement per the patient. PLAN: Continue Ancef, dose adjusted for renal insufficiency. FIORDALIZA BROOK LOPEZ Jazzmine Saha MD CM:SMITH [id number] DECEMBER JOHN DOE 04/28/19 1641 interface
--- NOTE | ~2019-04-25 | PR ---
[place], [place] PROGRESS NOTE NAME: [facility] JR [id number] UN[facility] #: [id number] ROOM: 425 DOCTOR: SALUD SAHA MD BIRTHDATE: [birth year] DOS: 04/28/2019 ADDENDUM I reviewed the labs and imaging, made the necessary changes in the note. I agree with the assessment and plan. Salud Saha MD CM:PNTRANS [id number] SALUD SAHA MD 05/04/19 0118 interface
[~2019-04-25 11:16] MED LIST changes: +OMNICEF300 MG PO; +VIBRAMYCIN100 MG PO
[2019-04-25 11:17] VITALS: BP 169/95
[2019-04-25 12:18] LABS: BASO % 0.5 % (0.0-1.0); EOS # 0.3 10*3/uL (0.0-0.4); EOS % 3.4 % (1.0-4.0); HEMATOCRIT 40.6 % (42.0-52.0); HEMOGLOBIN 12.6 g/dl (14.0-18.0); LYMPH % 13.2 % (27.0-41.0); MEAN CELL VOLUME 99.5 fl (80.0-94.0); MEAN CORPUSCULAR HGB 30.9 pg (27.0-31.0); MEAN PLATELET VOLUME 9.6 fl (9.6-12.3); MONO # 0.9 10*3/uL (0.1-1.0); NEUT # 5.2 10*3/uL (2.3-7.9); NEUT % 70.4 % (47.0-73.0); PLATELET COUNT AUTOMATED 297 10*3/uL (130-400); RED BLOOD COUNT 4.08 10*6/uL (4.50-5.90); RED CELL DISTRI WIDTH 14.5 % (0-14.5); WHITE BLOOD COUNT 7.4 10*3/uL (4.8-10.8)
[2019-04-25 12:29] LABS: ACT PARTIAL THROMBO TIME 30.6 SECONDS (20.0-32.1); INTERNATIONAL NORM RATIO 1.1 (2.0-3.5)
[2019-04-25 12:33] LABS: ALBUMIN 3.5 gm/dl (3.1-4.5); CREATININE 1.79 mg/dL (0.70-1.30); POTASSIUM 3.8 mmol/L (3.5-5.1); TOTAL PROTEIN 7.5 gm/dL (6.4-8.2)
[2019-04-25 12:58] LABS: BILIRUBIN NEGATIVE (NEGATIVE); BLOOD NEGATIVE (NEGATIVE); CLARITY CLEAR (CLEAR); COLOR YELLOW (YELLOW); GLUCOSE NEGATIVE (NEGATIVE); KETONE NEGATIVE (NEGATIVE); LEUKO ESTERASE NEGATIVE (NEGATIVE); NITRITE NEGATIVE (NEGATIVE); PH 6.5 (5.0-9.0); SPECIFIC GRAVITY <= 1.005 (1.005-1.030); UROBILINOGEN 0.2 E.U./dl (0.2-1.0)
[2019-04-25 13:00] VITALS: BP 128/70
[2019-04-25 13:10] LABS: BACTERIA 1+; RBC 0-2 rbc/hpf (0-2); WBC 0-2 wbc/hpf (0-5)
[2019-04-25 13:30] VITALS: BP 153/90
--- NOTE | 2019-04-25 14:00 | NUR ---
MSADMTime: 1400 A 69 year old MALE admitted to 4E under services of GEORGETTE FERREIRA DO, Pt. arrived via bed from ER. Chief complaint: CELLULITIS BLE. JOSE AKHTAR
[2019-04-25 16:00] VITALS: BP 144/78
--- NOTE | 2019-04-25 16:25 | NUR ---
DR. DOMINGUEZ'S ANSWERING SERVICE NOTIFIED OF CONSULT.
--- NOTE | 2019-04-25 17:21 | NUR ---
ZOFRAN GIVEN FOR C/O NAUSEA. WILL MONITOR.
--- NOTE | 2019-04-25 17:48 | NUR ---
OFF FLOOR TO XRAY.
--- NOTE | 2019-04-25 18:39 | NUR ---
NOTIFIED DR. HERNANDEZ THAT PT IS SCRATCHING HIS BLE SO HARD THAT ARE BLEEDING. WILL CONTINUE TO MONITOR.
[2019-04-25 20:00] VITALS: BP 144/82
--- NOTE | 2019-04-25 20:27 | NUR ---
PATIENT AWAKE/ALERT FOR SHIFT ASSESSMENT. DEAF/MUTE. COMMUNICATES WITH NOTEPAD OR TABLET. IV ABX INFUSING AT THIS TIME. C/O BLE PAIN L GREATER THAN R. MEDICATED WITH PRN NORCO ORDERED. CALL LIGHT IN REACH
[2019-04-26] VITALS: BP 140/89
[2019-04-26 06:45] LABS: BASO # 0.1 10*3/uL (0.0-0.1); BASO % 0.7 % (0.0-1.0); EOS # 0.4 10*3/uL (0.0-0.4); EOS % 4.9 % (1.0-4.0); HEMATOCRIT 38.5 % (42.0-52.0); HEMOGLOBIN 11.8 g/dl (14.0-18.0); LYMPH # 0.9 10*3/uL (1.3-4.4); LYMPH % 11.5 % (27.0-41.0); MEAN CELL VOLUME 101.3 fl (80.0-94.0); MEAN CORPUSCULAR HGB 31.1 pg (27.0-31.0); MEAN CORPUSCULAR HGB CONC 30.6 g/dl (33.0-37.0); MEAN PLATELET VOLUME 10.3 fl (9.6-12.3); MONO # 0.9 10*3/uL (0.1-1.0); MONO % 11.6 % (3.0-9.0); NEUT # 5.4 10*3/uL (2.3-7.9); PLATELET COUNT AUTOMATED 250 10*3/uL (130-400); RED CELL DISTRI WIDTH 14.6 % (0-14.5); WHITE BLOOD COUNT 7.6 10*3/uL (4.8-10.8)
[2019-04-26 07:20] LABS: POTASSIUM 4.1 mmol/L (3.5-5.1)
[2019-04-26 07:33] LABS: CREATININE 2.11 mg/dL (0.70-1.30); PHOSPHOROUS 4.8 mg/dL (2.5-4.9); THYROID STIM HORMONE (HS) 2.76 uIU/ml (0.358-4.75)
--- NOTE | 2019-04-26 07:42 | NUR ---
SHLIPI FUENTES JR [id number] Please refer to the physician's history and physical for past medical history, comorbid conditions, and allergies. Diagnosis: BILATERAL CELLULITIS OF LOWER LEG RENAL INSUFF Baljinder Score: 18,AT RISK WOUND DESCRIPTIONS: Wound Number: 1 Location of the wound: left lower extremity lateral aspect Thickness: Full Size: 7.5cm x 9.0cm x 0.1cm Tunneling: none Undermining: none Sinus Tract: none Presence of Exudate: Serosanguineous Amount: Heavy Color: Red, yellow Odor: None Periwound Skin Appearance: Erythema Wound edges: approximated Pain (associated with wound): none at time of assessment How does patient state this happened? pt stated he thinks its from him scratching it Wound Number: 2 Location of the wound: left lower extremity medial aspect Thickness: Full Size: 6.5cm x 1.0cm x 0.1cm Tunneling: none Undermining: none Sinus Tract: none Presence of Exudate: Serosanguineous Amount: Heavy Color: Red, yellow Odor: None Periwound Skin Appearance: Erythema Wound edges: approximated Pain (associated with wound): none at time of assessment How does patient state this happened? pt stated he thinks its from him scratching it Right lower extremity red and flat spring assembler color. Dry flaky areas noted. No open areas at time of assessment. No draiange noted at time of assessment. Surface the patient is resting on: Isoflex SKIN PREVENTION RECOMMENDATION: 1. Pressure redistribution support surface as appropriate 2. Elevate heels 3. Remove boots/TEDS every shift and reapply 4. Head of bed 30 degrees as tolerated 5. Assess nutrition and hydration 6. Manage moisture 7. Avoid the use of containment devices while in bed 8. Use absorptive products on surfaces limit layers of linens on bed 9. Turn and reposition every 1-2 hours in bed and every 1 hour in chair as tolerated 10. Weight shifts every 15 minutes while up in chair 11. Offloading with pillows or device to keep heels elevated off bed 12. Monitor skin at least every shift 13. Inspect under medical devices twice a day WOUND TREATMENT RECOMMENDATIONS: Venous and arterial stuides pending. Consult podiatry for non-healing areas to left lower extermity. D/C stage 2 guidelines Full thickness guidelines: Cleanse left lower extremity lateral and medial with nss and apply sureprep around the wound therahoney sheets to wound bed cover with maxorb II then apply abd pad and lightly wrap with kerlix daily and prn for soiling. Heel raiser pro boots to bilateral feet while in bed.
[2019-04-26 08:00] VITALS: BP 114/62
--- NOTE | 2019-04-26 08:09 | NUR ---
Dr. Grider notified of wound care recommendations.
--- NOTE | 2019-04-26 11:20 | NUR ---
DR. ARRIETA NOTIFIED OF CONSULT.
[2019-04-26 12:00] VITALS: BP 133/69
--- NOTE | 2019-04-26 13:32 | NUR ---
Traditional Maori Health Practitioner in to talk to patient. Patient states lives at HOME with ALONE, STATES SISTER HELPS HIM. There are FEW steps in the home. [facility] Home health services: NONE Patient's level of ADLs: MINIMAL ASSIST Patient has working utilities: YES DME: WALKER Follow-up physician's appointment after d/c: WILL BE MADE BY HOSPITALIST NURSE DIRECTOR ON DISCHARGE Does patient want to access PORTAL?: NO Discharge plan PT WRITES HE LIVES AT HOME ALONE AND SISTER AND NEPHEW HELP HIM.. STATES HE HAS A WALKER AT HOME. DOES NOT HAVE HOME HEALTH AT THIS TIME AND DENIES NEED FOR IT. WILL CONTINUE TO FOLLOW. PT STATES HE WILL HAVE A WAY HOME ON DISCHARGE. ZAHEER QUINONES
[2019-04-26 16:00] VITALS: BP 134/69
[2019-04-26 20:00] VITALS: BP 139/75
--- NOTE | 2019-04-26 20:00 | NUR ---
RESTING IN BED WITH EYES CLOSED. CALL LIGHT WITHIN REACH.
--- NOTE | 2019-04-26 22:00 | NUR ---
BLOOD SUGAR 142; NO COVERAGE REQUIRED.
[2019-04-27] VITALS: BP 125/73
--- NOTE | 2019-04-27 06:00 | NUR ---
BLOOD SUGAR 122; NO COVERAGE REQUIRED.
[2019-04-27 06:07] LABS: BASO % 0.3 % (0.0-1.0); EOS # 0.5 10*3/uL (0.0-0.4); EOS % 5.1 % (1.0-4.0); HEMATOCRIT 36.5 % (42.0-52.0); HEMOGLOBIN 11.1 g/dl (14.0-18.0); LYMPH % 11.5 % (27.0-41.0); MEAN CELL VOLUME 101.4 fl (80.0-94.0); MEAN CORPUSCULAR HGB 30.8 pg (27.0-31.0); MEAN CORPUSCULAR HGB CONC 30.4 g/dl (33.0-37.0); MEAN PLATELET VOLUME 10.5 fl (9.6-12.3); MONO # 1.1 10*3/uL (0.1-1.0); MONO % 11.9 % (3.0-9.0); NEUT # 6.4 10*3/uL (2.3-7.9); PLATELET COUNT AUTOMATED 235 10*3/uL (130-400); RED CELL DISTRI WIDTH 14.3 % (0-14.5)
[2019-04-27 06:32] LABS: CREATININE 2.09 mg/dL (0.70-1.30); POTASSIUM 4.3 mmol/L (3.5-5.1)
[2019-04-27 08:00] VITALS: BP 137/80
[2019-04-27 12:00] VITALS: BP 119/53
[2019-04-27 16:00] VITALS: BP 115/54
--- NOTE | 2019-04-27 16:23 | NUR ---
WOUND DRESSING CHANGE PRN ORDERED TO LEFT LEG. PT COMPLAINS OF BURNING PAIN. MEDICATED WITH PRN TYLENOL. WILL CONTINUE TO ASSESS.
[2019-04-27 20:00] VITALS: BP 130/78
--- NOTE | 2019-04-27 22:40 | NUR ---
PRN TYLENOL GIVEN FOR PT COMPLAINTS OF LEG PAIN. RATING IT 6/10. CALL LIGHT WITHIN REACH, WILL MONITOR
--- NOTE | 2019-04-27 23:18 | NUR ---
24 HR chart check completed.
[2019-04-28] VITALS: BP 138/80
--- NOTE | 2019-04-28 | NUR ---
PRN MEDICATION APPEARS EFFECTIVE, PT SLEEPING
[2019-04-28 06:29] LABS: BASO % 0.3 % (0.0-1.0); EOS # 0.5 10*3/uL (0.0-0.4); EOS % 5.4 % (1.0-4.0); HEMATOCRIT 37.4 % (42.0-52.0); HEMOGLOBIN 11.9 g/dl (14.0-18.0); LYMPH % 11.3 % (27.0-41.0); MEAN CELL VOLUME 99.5 fl (80.0-94.0); MEAN CORPUSCULAR HGB 31.6 pg (27.0-31.0); MEAN CORPUSCULAR HGB CONC 31.8 g/dl (33.0-37.0); MEAN PLATELET VOLUME 10.2 fl (9.6-12.3); MONO # 0.9 10*3/uL (0.1-1.0); MONO % 10.8 % (3.0-9.0); NEUT # 6.2 10*3/uL (2.3-7.9); NEUT % 71.9 % (47.0-73.0); PLATELET COUNT AUTOMATED 234 10*3/uL (130-400); RED BLOOD COUNT 3.76 10*6/uL (4.50-5.90); RED CELL DISTRI WIDTH 14.2 % (0-14.5); WHITE BLOOD COUNT 8.6 10*3/uL (4.8-10.8)
[2019-04-28 06:39] LABS: CREATININE 1.81 mg/dL (0.70-1.30); POTASSIUM 4.2 mmol/L (3.5-5.1)
[2019-04-28 12:00] VITALS: BP 125/70
[2019-04-28 16:00] VITALS: BP 156/90
[2019-04-28 20:00] VITALS: BP 147/91
[2019-04-29] VITALS: BP 133/66
--- NOTE | 2019-04-29 04:13 | NUR ---
24 HR chart check completed.
[2019-04-29 06:44] LABS: BASO % 0.5 % (0.0-1.0); EOS # 0.4 10*3/uL (0.0-0.4); EOS % 4.9 % (1.0-4.0); HEMATOCRIT 38.6 % (42.0-52.0); HEMOGLOBIN 12.1 g/dl (14.0-18.0); LYMPH # 1.2 10*3/uL (1.3-4.4); LYMPH % 13.1 % (27.0-41.0); MEAN CELL VOLUME 99.2 fl (80.0-94.0); MEAN CORPUSCULAR HGB 31.1 pg (27.0-31.0); MEAN CORPUSCULAR HGB CONC 31.3 g/dl (33.0-37.0); MEAN PLATELET VOLUME 10.4 fl (9.6-12.3); MONO # 0.8 10*3/uL (0.1-1.0); MONO % 8.8 % (3.0-9.0); NEUT # 6.4 10*3/uL (2.3-7.9); NEUT % 72.4 % (47.0-73.0); PLATELET COUNT AUTOMATED 248 10*3/uL (130-400); RED BLOOD COUNT 3.89 10*6/uL (4.50-5.90); RED CELL DISTRI WIDTH 14.2 % (0-14.5); WHITE BLOOD COUNT 8.8 10*3/uL (4.8-10.8)
[2019-04-29 06:53] LABS: CREATININE 1.78 mg/dL (0.70-1.30)
[2019-04-29 08:00] VITALS: BP 142/68
--- NOTE | 2019-04-29 09:30 | NUR ---
REPORT RECIEVED FROM FCO BAUER. PT SITTING IN CHAIR. NO S/S OF SOB OR DISTRESS. PT INDICATES THAT HE IS OK. CHAIR IS LOCKED AND CALL LIGHT AND BELONGINGS WITHIN REACH. WILL CONTINUE TO MONITOR.
--- NOTE | 2019-04-29 10:56 | NUR ---
Nutritional Support Services Note: Pt with dx of cellulitis, DM. Pt is deaf- assisted with ordering of meals. He receives a regular diet as ordered. Current BS is 113. Ht.5'3 Wt.272#. He is eating 100% of all meals. No nutrition intervention needed at this time. Will follow as needed. Anahy Luna Rdn Ld
[2019-04-29] MEDS ORDERED: KEFLEX500 M1 PO (11:55)
[2019-04-29 12:00] VITALS: BP 125/50
--- NOTE | 2019-04-29 12:04 | NUR ---
PT WRITES HE IS GOING HOME TODAY AND WILL HAVE NO NEW NEEDS ON DISCHARGE. WILL CONTINUE TO FOLLOW.
--- NOTE | 2019-04-29 12:30 | NUR ---
ATTEMPTED TO CONTACT PATIENT'S SISTER REGARDING DISCHARGE. NO ANSWER. MESSAGE WAS LEFT WITH [employer] SIGN LANGUAGE ANSWERING SERVICE.
--- NOTE | 2019-04-29 13:45 | NUR ---
ATTEMPTED TO CONTACT PATIENT'S SISTER AT WORK. NO ANSWER.
[2019-04-29 16:00] VITALS: BP 135/77
--- NOTE | 2019-04-29 16:49 | NUR ---
PATIENT REQUEST AND RECIEVED TYLENOL FOR LEFT LEG PAIN. WILL MONITOR FOR EFFECTIVENESS.
--- NOTE | 2019-04-29 18:02 | NUR ---
ATTEMPTED TO CONTACT PATIENT'S SISTER. NO ANSWER.
[2019-04-29 20:00] VITALS: BP 149/78
--- NOTE | 2019-04-29 20:00 | NUR ---
SITTING UP IN CHAIR IN ROOM WAITING FOR RIDE. VOICES NO C/O AT THIS TIME. CALL LIGHT WITHIN REACH.
--- NOTE | 2019-04-29 21:00 | NUR ---
FAMILY HERE FOR PT. DISCHARGE INSTRUCTIONS REVIEWED WITH FAMILY MEMBER & PT. BOTH VERBALIZED UNDERSTANDING. LEFT VIA W/C. HEBER.
== END 2019-04-29 21:00 | disposition home or self-care (01) | DRG 602 ==
LOC: ED 11:16 → 4E 12:05 → EDHOLD 12:05 → 4E 12:18
PROVIDERS: Family Medicine; Internal Medicine; Physician Assistant; ADMIT Internal Medicine
DX: L03.116 Cellulitis of left lower limb (principal); N17.0 Acute kidney failure with tubular necrosis; E44.1 Mild protein-calorie malnutrition; I50.32 Chronic diastolic (congestive) heart failure; Z68.42 Body mass index [BMI] 45.0-49.9, adult; L03.115 Cellulitis of right lower limb; D53.9 Nutritional anemia, unspecified; I48.2 Chronic atrial fibrillation; I11.0 Hypertensive heart disease with heart failure; H91.3 Deaf nonspeaking, not elsewhere classified; E66.01 Morbid (severe) obesity due to excess calories; E11.69 Type 2 diabetes mellitus with other specified complication; E78.2 Mixed hyperlipidemia; K21.9 Gastro-esophageal reflux disease without esophagitis; I87.2 Venous insufficiency (chronic) (peripheral); J30.2 Other seasonal allergic rhinitis; E55.9 Vitamin D deficiency, unspecified; L30.4 Erythema intertrigo; R33.9 Retention of urine, unspecified; Z82.49 Family history of ischemic heart disease and other diseases of the circulatory system; Z80.8 Family history of malignant neoplasm of other organs or systems; Z83.3 Family history of diabetes mellitus; Z87.01 Personal history of pneumonia (recurrent); Z79.899 Other long term (current) drug therapy; Z79.01 Long term (current) use of anticoagulants

== ENCOUNTER 2019-05-02 17:42 | Emergency (ER) | payer MEDICARE ==
[~2019-05-02] VITALS: Wt 117.5 kg
== END 2019-05-02 18:12 | disposition home or self-care (01) ==
LOC: ED 17:42
DX: Z48.00 Encounter for change or removal of nonsurgical wound dressing (principal); I25.10 Atherosclerotic heart disease of native coronary artery without angina pectoris; I10 Essential (primary) hypertension; E11.9 Type 2 diabetes mellitus without complications; I48.91 Unspecified atrial fibrillation; E66.9 Obesity, unspecified; Z79.899 Other long term (current) drug therapy; Z79.2 Long term (current) use of antibiotics

== ENCOUNTER 2019-05-29 21:21 | Emergency (ER) | payer MEDICARE ==
[~2019-05-29] VITALS: Wt 117.9 kg
[2019-05-29 23:47] LABS: BILIRUBIN NEGATIVE (NEGATIVE); BLOOD 1+ (NEGATIVE); CLARITY SL CLOUDY (CLEAR); COLOR YELLOW (YELLOW); GLUCOSE NEGATIVE (NEGATIVE); KETONE NEGATIVE (NEGATIVE); LEUKO ESTERASE 2+ (NEGATIVE); NITRITE NEGATIVE (NEGATIVE); PH 5.5 (5.0-9.0); SPECIFIC GRAVITY <= 1.005 (1.005-1.030); UROBILINOGEN 0.2 E.U./dl (0.2-1.0)
[2019-05-29 23:53] LABS: WBC TNTC wbc/hpf (0-5)
[2019-05-29 23:54] LABS: BACTERIA 2+
[2019-05-29] MEDS ORDERED: SEPTDS PO (23:59)
[2019-06-01] MEDS ORDERED: MACROBID100 M1 PO (14:54)
== END 2019-05-30 00:40 | disposition home or self-care (01) ==
LOC: ED 21:21
PROVIDERS: Physician Assistant
DX: N39.0 Urinary tract infection, site not specified (principal); R33.9 Retention of urine, unspecified; Z79.899 Other long term (current) drug therapy

== ENCOUNTER 2019-05-30 07:41 | Emergency (ER) | payer MEDICARE ==
[~2019-05-30 07:41] MED LIST changes: +SEPTDS PO
[2019-06-01] MEDS ORDERED: MACROBID100 M1 PO (14:54)
== END 2019-05-30 08:24 | disposition home or self-care (01) ==
LOC: ED 07:41
DX: T83.038A Leakage of other urinary catheter, initial encounter (principal); K21.9 Gastro-esophageal reflux disease without esophagitis; I50.9 Heart failure, unspecified; I11.0 Hypertensive heart disease with heart failure; E78.2 Mixed hyperlipidemia; I48.91 Unspecified atrial fibrillation; E11.9 Type 2 diabetes mellitus without complications; E66.01 Morbid (severe) obesity due to excess calories; Z79.899 Other long term (current) drug therapy; Y84.6 Urinary catheterization as the cause of abnormal reaction of the patient, or of later complication, without mention of misadventure at the time of the procedure; Y92.89 Other specified places as the place of occurrence of the external cause

== ENCOUNTER 2019-06-03 17:44 | Emergency (ER) | payer MEDICARE ==
[~2019-06-03 17:44] MED LIST changes: +MACROBID100 M1 PO
[2019-06-03 21:08] LABS: BILIRUBIN NEGATIVE (NEGATIVE); BLOOD 3+ (NEGATIVE); CLARITY CLEAR (CLEAR); COLOR YELLOW (YELLOW); GLUCOSE NEGATIVE (NEGATIVE); KETONE NEGATIVE (NEGATIVE); LEUKO ESTERASE 1+ (NEGATIVE); NITRITE NEGATIVE (NEGATIVE); SPECIFIC GRAVITY <= 1.005 (1.005-1.030); UROBILINOGEN 0.2 E.U./dl (0.2-1.0)
[2019-06-03 21:11] LABS: RBC TNTC rbc/hpf (0-2)
[2019-06-03 21:12] LABS: BACTERIA TRACE; EPITHELIAL CELLS 0-2
[2019-07-23] MEDS ORDERED: CIPRO500 MG PO (20:26)
== END 2019-06-03 21:22 | disposition home or self-care (01) ==
LOC: ED 17:44
PROVIDERS: Emergency Medicine
DX: T83.098A Other mechanical complication of other urinary catheter, initial encounter (principal); E78.2 Mixed hyperlipidemia; K21.9 Gastro-esophageal reflux disease without esophagitis; I11.0 Hypertensive heart disease with heart failure; I50.32 Chronic diastolic (congestive) heart failure; I48.91 Unspecified atrial fibrillation; E11.9 Type 2 diabetes mellitus without complications; E66.9 Obesity, unspecified; Z79.899 Other long term (current) drug therapy; Z68.39 Body mass index [BMI] 39.0-39.9, adult; Y84.6 Urinary catheterization as the cause of abnormal reaction of the patient, or of later complication, without mention of misadventure at the time of the procedure; Y92.89 Other specified places as the place of occurrence of the external cause

== ENCOUNTER 2019-06-25 10:45 | Emergency (ER) | payer MEDICARE ==
[~2019-06-25] VITALS: Wt 120.2 kg
[2019-06-25 11:47] LABS: BILIRUBIN NEGATIVE (NEGATIVE); BLOOD 3+ (NEGATIVE); CLARITY CLOUDY (CLEAR); COLOR YELLOW (YELLOW); GLUCOSE NEGATIVE (NEGATIVE); KETONE NEGATIVE (NEGATIVE); LEUKO ESTERASE 3+ (NEGATIVE); NITRITE POSITIVE (NEGATIVE); PH 5.5 (5.0-9.0); UROBILINOGEN 0.2 E.U./dl (0.2-1.0)
[2019-06-25 11:58] LABS: BACTERIA 2+; RBC TNTC rbc/hpf (0-2); WBC TNTC wbc/hpf (0-5)
[2019-06-25] MEDS ORDERED: MACROBID100 M1 PO (12:31)
[2019-07-23] MEDS ORDERED: CIPRO500 MG PO (20:26)
== END 2019-06-25 12:35 | disposition home or self-care (01) ==
LOC: ED 10:45
PROVIDERS: Physician Assistant
DX: T83.038A Leakage of other urinary catheter, initial encounter (principal); N39.0 Urinary tract infection, site not specified; Z79.899 Other long term (current) drug therapy; Y84.6 Urinary catheterization as the cause of abnormal reaction of the patient, or of later complication, without mention of misadventure at the time of the procedure; Y92.89 Other specified places as the place of occurrence of the external cause

== ENCOUNTER → 2019-07-04 | Outpatient (CLI) | payer MEDICARE ==
[~2019-07-04] MED LIST changes: +CIPRO500 MG PO; +SKIN PROTECTAN113 GM T
== END | disposition home or self-care (01) ==
LOC: RESCLI 02:22
DX: I48.0 Paroxysmal atrial fibrillation (principal); N40.1 Benign prostatic hyperplasia with lower urinary tract symptoms; I10 Essential (primary) hypertension; E78.2 Mixed hyperlipidemia; E11.9 Type 2 diabetes mellitus without complications; R06.02 Shortness of breath; L03.90 Cellulitis, unspecified; K21.9 Gastro-esophageal reflux disease without esophagitis; Z79.899 Other long term (current) drug therapy

== ENCOUNTER 2019-08-06 17:51 | Emergency (ER) | payer OTHER ==
[~2019-08-06 17:51] MED LIST changes: -SKIN PROTECTAN113 GM T
[2019-08-06] MEDS ORDERED: SKIN PROTECTAN113 GM T (18:58)
[2019-08-06 19:46] LABS: BILIRUBIN NEGATIVE (NEGATIVE); BLOOD 2+ (NEGATIVE); CLARITY CLEAR (CLEAR); COLOR YELLOW (YELLOW); GLUCOSE NEGATIVE (NEGATIVE); KETONE NEGATIVE (NEGATIVE); LEUKO ESTERASE 1+ (NEGATIVE); NITRITE NEGATIVE (NEGATIVE); UROBILINOGEN 0.2 E.U./dl (0.2-1.0)
[2019-08-06 19:52] LABS: WBC 31-40 wbc/hpf (0-5)
[2019-08-06 19:53] LABS: BACTERIA 1+
[2019-08-06] MEDS ORDERED: CEPHALEXIN500 M1 PO (19:56)
== END 2019-08-06 20:07 | disposition home or self-care (01) ==
LOC: ED 17:51
PROVIDERS: Nurse Practitioner Family
DX: T83.511A Infection and inflammatory reaction due to indwelling urethral catheter, initial encounter (principal); N39.0 Urinary tract infection, site not specified; T83.031A Leakage of indwelling urethral catheter, initial encounter; E11.9 Type 2 diabetes mellitus without complications; I48.20 Chronic atrial fibrillation, unspecified; I25.10 Atherosclerotic heart disease of native coronary artery without angina pectoris; I11.0 Hypertensive heart disease with heart failure; I50.30 Unspecified diastolic (congestive) heart failure; K21.9 Gastro-esophageal reflux disease without esophagitis; E78.2 Mixed hyperlipidemia; E66.01 Morbid (severe) obesity due to excess calories; Z79.2 Long term (current) use of antibiotics; Z79.899 Other long term (current) drug therapy; Y84.8 Other medical procedures as the cause of abnormal reaction of the patient, or of later complication, without mention of misadventure at the time of the procedure; Y92.89 Other specified places as the place of occurrence of the external cause

== ENCOUNTER 2019-08-27 18:44 | Emergency (ER) | payer OTHER ==
[~2019-08-27 18:44] MED LIST changes: +SKIN PROTECTAN113 GM T
[2019-08-27 20:02] LABS: BILIRUBIN NEGATIVE (NEGATIVE); BLOOD 3+ (NEGATIVE); CLARITY CLEAR (CLEAR); COLOR YELLOW (YELLOW); GLUCOSE NEGATIVE (NEGATIVE); KETONE NEGATIVE (NEGATIVE); LEUKO ESTERASE TRACE (NEGATIVE); NITRITE NEGATIVE (NEGATIVE); SPECIFIC GRAVITY 1.025 (1.005-1.030); UROBILINOGEN 0.2 E.U./dl (0.2-1.0)
[2019-08-27 20:17] LABS: RBC 51-100 rbc/hpf (0-2)
== END 2019-08-27 19:59 | disposition home or self-care (01) ==
LOC: ED 18:44
PROVIDERS: Physician Assistant
DX: T83.9XXA Unspecified complication of genitourinary prosthetic device, implant and graft, initial encounter (principal); I25.10 Atherosclerotic heart disease of native coronary artery without angina pectoris; I10 Essential (primary) hypertension; E11.9 Type 2 diabetes mellitus without complications; E66.9 Obesity, unspecified; Z79.2 Long term (current) use of antibiotics; Z79.899 Other long term (current) drug therapy; Y84.8 Other medical procedures as the cause of abnormal reaction of the patient, or of later complication, without mention of misadventure at the time of the procedure; Y92.89 Other specified places as the place of occurrence of the external cause

== ENCOUNTER 2019-08-29 18:53 | Emergency (ER) | payer MEDICARE ==
[~2019-08-29] VITALS: Ht 160 cm; Wt 113.4 kg
== END 2019-08-29 19:40 | disposition home or self-care (01) ==
LOC: ED 18:53
DX: T83.038A Leakage of other urinary catheter, initial encounter (principal); I48.20 Chronic atrial fibrillation, unspecified; I11.0 Hypertensive heart disease with heart failure; I50.30 Unspecified diastolic (congestive) heart failure; K21.9 Gastro-esophageal reflux disease without esophagitis; E66.9 Obesity, unspecified; E11.9 Type 2 diabetes mellitus without complications; Z79.899 Other long term (current) drug therapy; Z79.2 Long term (current) use of antibiotics; Z68.30 Body mass index [BMI] 30.0-30.9, adult; Y84.8 Other medical procedures as the cause of abnormal reaction of the patient, or of later complication, without mention of misadventure at the time of the procedure; Y92.89 Other specified places as the place of occurrence of the external cause

== ENCOUNTER 2019-09-05 20:35 | Emergency (ER) | payer MEDICARE ==
[~2019-09-05] VITALS: Ht 167.6 cm; Wt 124.7 kg
== END 2019-09-05 21:41 | disposition home or self-care (01) ==
LOC: ED 20:35
DX: T83.038A Leakage of other urinary catheter, initial encounter (principal); E66.01 Morbid (severe) obesity due to excess calories; K21.9 Gastro-esophageal reflux disease without esophagitis; I48.20 Chronic atrial fibrillation, unspecified; I11.0 Hypertensive heart disease with heart failure; I50.32 Chronic diastolic (congestive) heart failure; E11.9 Type 2 diabetes mellitus without complications; Z79.899 Other long term (current) drug therapy; Y84.6 Urinary catheterization as the cause of abnormal reaction of the patient, or of later complication, without mention of misadventure at the time of the procedure; Y92.89 Other specified places as the place of occurrence of the external cause

== ENCOUNTER 2019-09-18 16:27 | Emergency (ER) | payer MEDICARE ==
[~2019-09-18] VITALS: Ht 160 cm; Wt 120.2 kg
[2019-09-18 17:03] LABS: BILIRUBIN NEGATIVE (NEGATIVE); BLOOD 3+ (NEGATIVE); CLARITY CLOUDY (CLEAR); COLOR YELLOW (YELLOW); GLUCOSE NEGATIVE (NEGATIVE); KETONE NEGATIVE (NEGATIVE); LEUKO ESTERASE 2+ (NEGATIVE); NITRITE POSITIVE (NEGATIVE); UROBILINOGEN 0.2 E.U./dl (0.2-1.0)
[2019-09-18 17:11] LABS: BACTERIA 3+; RBC 21-30 rbc/hpf (0-2); WBC TNTC wbc/hpf (0-5)
[2019-09-18] MEDS ORDERED: CIPRO500 MG PO (18:30)
== END 2019-09-18 18:40 | disposition home or self-care (01) ==
LOC: ED 16:27
PROVIDERS: Emergency Medicine
DX: N39.0 Urinary tract infection, site not specified (principal); Z46.6 Encounter for fitting and adjustment of urinary device; I48.20 Chronic atrial fibrillation, unspecified; I11.0 Hypertensive heart disease with heart failure; I50.32 Chronic diastolic (congestive) heart failure; K21.9 Gastro-esophageal reflux disease without esophagitis; E78.2 Mixed hyperlipidemia; E66.01 Morbid (severe) obesity due to excess calories; Z79.899 Other long term (current) drug therapy; Z68.30 Body mass index [BMI] 30.0-30.9, adult; Y84.8 Other medical procedures as the cause of abnormal reaction of the patient, or of later complication, without mention of misadventure at the time of the procedure; Y92.89 Other specified places as the place of occurrence of the external cause

== ENCOUNTER 2019-10-09 13:54 | Emergency (ER) | payer MEDICARE ==
[~2019-10-09] VITALS: Ht 160 cm; Wt 120.2 kg
[2019-10-09 16:12] LABS: BILIRUBIN NEGATIVE (NEGATIVE); BLOOD 3+ (NEGATIVE); CLARITY SL CLOUDY (CLEAR); COLOR YELLOW (YELLOW); GLUCOSE NEGATIVE (NEGATIVE); KETONE NEGATIVE (NEGATIVE); LEUKO ESTERASE TRACE (NEGATIVE); NITRITE NEGATIVE (NEGATIVE); SPECIFIC GRAVITY 1.025 (1.005-1.030); UROBILINOGEN 0.2 E.U./dl (0.2-1.0)
[2019-10-09 16:20] LABS: BACTERIA 2+; EPITHELIAL CELLS 0-2; RBC 51-100 rbc/hpf (0-2); TRIP PHOS CRYSTALS 1+
[2019-10-09] MEDS ORDERED: LEVOFLOXACIN500 MG PO (18:43)
[2019-10-09] MEDS ORDERED: PYRIDIUM200 M1 PO (18:43)
== END 2019-10-09 19:00 | disposition home or self-care (01) ==
LOC: ED 13:54
PROVIDERS: Emergency Medicine
DX: N39.0 Urinary tract infection, site not specified (principal); K21.9 Gastro-esophageal reflux disease without esophagitis; I48.20 Chronic atrial fibrillation, unspecified; E78.5 Hyperlipidemia, unspecified; E66.01 Morbid (severe) obesity due to excess calories; I11.0 Hypertensive heart disease with heart failure; I50.9 Heart failure, unspecified; E11.9 Type 2 diabetes mellitus without complications; I25.10 Atherosclerotic heart disease of native coronary artery without angina pectoris; Z68.39 Body mass index [BMI] 39.0-39.9, adult

== ENCOUNTER 2019-10-15 14:49 | Emergency (ER) | payer MEDICARE ==
[~2019-10-15 14:49] MED LIST changes: -AVPAK METFORMI500 M1 PO; +LEVOFLOXACIN500 MG PO; +METFORMIN HCL500 M2 PO; +PYRIDIUM200 M1 PO
[2019-10-16] MEDS ORDERED: LEVOFLOXACIN500 MG PO (11:17)
[2019-10-16] MEDS ORDERED: TYLENOL EXTRA500 M2 PO (11:18)
== END 2019-10-15 16:15 | disposition home or self-care (01) ==
LOC: ED 14:49
DX: T83.038A Leakage of other urinary catheter, initial encounter (principal); I48.91 Unspecified atrial fibrillation; I25.10 Atherosclerotic heart disease of native coronary artery without angina pectoris; E11.9 Type 2 diabetes mellitus without complications; I10 Essential (primary) hypertension; E66.9 Obesity, unspecified; Z79.2 Long term (current) use of antibiotics; Z79.899 Other long term (current) drug therapy; Y84.8 Other medical procedures as the cause of abnormal reaction of the patient, or of later complication, without mention of misadventure at the time of the procedure; Y92.89 Other specified places as the place of occurrence of the external cause

== ENCOUNTER 2019-10-16 01:41 | Inpatient (IN) | payer MEDICARE ==
[~2019-10-16] VITALS: Ht 160 cm; Wt 123.2 kg
[2019-10-16 11:15] VITALS: BP 130/75
[2019-10-16] MEDS ORDERED: LEVOFLOXACIN500 MG PO (11:17)
[2019-10-16] MEDS ORDERED: TYLENOL EXTRA500 M2 PO (11:18)
[2019-10-16 11:36] LABS: BASO # 0.1 10*3/uL (0.0-0.1); BASO % 0.6 % (0.0-1.0); EOS # 0.4 10*3/uL (0.0-0.4); HEMATOCRIT 52.8 % (42.0-52.0); HEMOGLOBIN 16.8 g/dl (14.0-18.0); LYMPH # 1.8 10*3/uL (1.3-4.4); MEAN CELL VOLUME 91.2 fl (80.0-94.0); MEAN CORPUSCULAR HGB CONC 31.8 g/dl (33.0-37.0); MEAN PLATELET VOLUME 10.5 fl (9.6-12.3); MONO # 1.1 10*3/uL (0.1-1.0); MONO % 9.9 % (3.0-9.0); NEUT # 7.6 10*3/uL (2.3-7.9); NEUT % 69.1 % (47.0-73.0); PLATELET COUNT AUTOMATED 218 10*3/uL (130-400); RED BLOOD COUNT 5.79 10*6/uL (4.50-5.90); RED CELL DISTRI WIDTH 13.6 % (0-14.5)
[2019-10-16 11:50] LABS: ALBUMIN 3.6 gm/dl (3.1-4.5); ALKALINE PHOSPHATASE 108 U/L (45-117); BUN 26 mg/dl (7-24); CHLORIDE 107 mmol/L (98-107); CHOLESTEROL 116 mg/dL (<200); CREATININE 1.05 mg/dL (0.70-1.30); HDL CHOLESTEROL 47 mg/dl (40-60); LDL CHOLESTEROL 55 mg/dL (9-159); PHOSPHOROUS 2.9 mg/dL (2.5-4.9); POTASSIUM 4.3 mmol/L (3.5-5.1); SGOT/AST 15 IU/L (3-35); SGPT/ALT 30 U/L (12-78); SODIUM 139 mmol/L (136-145); TOTAL PROTEIN 7.9 gm/dL (6.4-8.2); TRIGLYCERIDES 69 mg/dl (<150); VLDL CHOLESTEROL 14 mg/dL (6-40)
[2019-10-16 11:51] LABS: FREE T4 0.96 ng/dl (0.76-1.46)
[2019-10-16 16:00] VITALS: BP 136/71
[2019-10-16 20:00] VITALS: BP 117/52
--- NOTE | 2019-10-16 20:49 | NUR ---
PATIENT IS RESTING IN BED WITH EASY AND REGULAR RESPERS ON ROOM AIR. ASSESSMENT IS COMPLETE WITH NO S/S OF DISTRESS OR C/O VOICED AT THIS TIME. BED IS LOW, LOCKED, ALARMED, AND CALL LIGHT IS WITHIN REACH. BLOOD GLUCOSE 206. WILL CONTINUE TO MONITOR, SEE SHIFT ASSESSMENT.
[2019-10-17] VITALS: BP 133/99
--- NOTE | 2019-10-17 00:10 | NUR ---
SPOKE WITH DR. PABLO IN REGARDS TO PATIENT LEGS BEING RED AND FLAKEY. LAC HYDRIN LOTION ORDERED.
--- NOTE | 2019-10-17 06:17 | NUR ---
CONTACTED DR. LA IN REGARDS TO PATIENT COUGH. SEE NEW ORDER.
[2019-10-17 07:50] LABS: BASO # 0.1 10*3/uL (0.0-0.1); BASO % 0.6 % (0.0-1.0); EOS # 0.6 10*3/uL (0.0-0.4); EOS % 6.5 % (1.0-4.0); HEMATOCRIT 50.1 % (42.0-52.0); HEMOGLOBIN 15.7 g/dl (14.0-18.0); LYMPH % 22.9 % (27.0-41.0); MEAN CELL VOLUME 91.4 fl (80.0-94.0); MEAN CORPUSCULAR HGB 28.6 pg (27.0-31.0); MEAN CORPUSCULAR HGB CONC 31.3 g/dl (33.0-37.0); MEAN PLATELET VOLUME 10.4 fl (9.6-12.3); MONO % 11.1 % (3.0-9.0); NEUT # 5.1 10*3/uL (2.3-7.9); NEUT % 58.7 % (47.0-73.0); PLATELET COUNT AUTOMATED 209 10*3/uL (130-400); RED BLOOD COUNT 5.48 10*6/uL (4.50-5.90); RED CELL DISTRI WIDTH 13.4 % (0-14.5); WHITE BLOOD COUNT 8.6 10*3/uL (4.8-10.8)
[2019-10-17 08:15] LABS: BUN 24 mg/dl (7-24); CHLORIDE 105 mmol/L (98-107); CREATININE 1.07 mg/dL (0.70-1.30); POTASSIUM 4.1 mmol/L (3.5-5.1); SODIUM 140 mmol/L (136-145)
--- NOTE | 2019-10-17 11:11 | NUR ---
PAULINA reached out to the patients sister Macey. She stated they are currently using electric heaters but do have heat in the home. They try not to use it often because of the high cost. PAULINA asked if they have spoken with with [employer]. She stated that she has reached out to them to start the process but has not heard back from them yet. PAULINA asked if the patient was having trouble with CARTs. She stated yes, FIELD REPRESENTATIVE/HEALTH EDUCATION was in the middle of talking to her about it and got disconnect. FIELD REPRESENTATIVE/HEALTH EDUCATION attempted return her call and left message asking for her to call back. Patient would be elligable for CARTs at a discounted Rate after submitting an application to [employer]. -PAULINA Medina
[2019-10-17 12:00] VITALS: BP 122/60
--- NOTE | 2019-10-17 12:59 | NUR ---
case management visits with patient, he is deaf and has a communication board. he lives at home, he stated he is slow to ambulate,has a walker at home he uses frequently, discussed with him a discharge plan and he wanted someone to talk with his sister regarding home needs, high school social studies teacher will contact patient's sister through an intepreter, case management will follow
[2019-10-17 16:00] VITALS: BP 106/47
[2019-10-17 20:00] VITALS: BP 101/59
--- NOTE | 2019-10-17 22:50 | NUR ---
PATIENT IS RESTING IN BED WITH EASY AND REGULAR RESPERS ON ROOM AIR. ASSESSMENT IS COMPLETE WITH NO S/S OF DISTRESS NOTED AT THIS TIME. PATIENT C/O COUGH. BED IS LOW, LOCKED, AND CALL LIGHT IS WITHIN REACH. WILL CONTINUE TO MONITOR, SEE SHIFT ASSESSMENT.
--- NOTE | 2019-10-17 23:06 | NUR ---
PRN CEPACOL COUGH DROP GIVEN AT THIS TIME FOR COUGH. PATIENT TOLERATED WELL. CALL LIGHT IS WITHIN REACH, WILL MONITOR EFFECT.
[2019-10-18] VITALS: BP 123/56
[2019-10-18 06:49] LABS: HEMATOCRIT 52.4 % (42.0-52.0); HEMOGLOBIN 16.4 g/dl (14.0-18.0); MEAN CORPUSCULAR HGB 28.5 pg (27.0-31.0); MEAN CORPUSCULAR HGB CONC 31.3 g/dl (33.0-37.0); MEAN PLATELET VOLUME 11.2 fl (9.6-12.3); PLATELET COUNT AUTOMATED 230 10*3/uL (130-400); RED BLOOD COUNT 5.76 10*6/uL (4.50-5.90); RED CELL DISTRI WIDTH 13.5 % (0-14.5); WHITE BLOOD COUNT 18.1 10*3/uL (4.8-10.8)
[2019-10-18 07:03] LABS: BUN 28 mg/dl (7-24); CHLORIDE 109 mmol/L (98-107); CREATININE 1.08 mg/dL (0.70-1.30); POTASSIUM 4.4 mmol/L (3.5-5.1); SODIUM 139 mmol/L (136-145)
[2019-10-18 07:12] LABS: PLATELET SUFFICIENCY NORMAL (NORMAL); TOTAL CELLS COUNTED 100 #CELLS
[2019-10-18 08:00] VITALS: BP 142/82
--- NOTE | 2019-10-18 08:11 | NUR ---
WAREHOUSE ASSISTANT left messages on both numbers listed for the patients sister asking for a return call. -PAULINA Medina
[2019-10-18] MEDS ORDERED: CEPACOL SORE T1 EACH PO (10:57)
[2019-10-18] MEDS ORDERED: AMMONIUM LACTA227 GM T (10:57)
[2019-10-18] MEDS ORDERED: PREDNISONE10 MG PO (10:57)
[2019-10-18] MEDS ORDERED: XARE20MG PO (10:57)
[2019-10-18] MEDS ORDERED: AVPAK AZITHROM250 M1 PO (10:57)
[2019-10-18 12:00] VITALS: BP 119/72
--- NOTE | 2019-10-18 15:16 | NUR ---
DISCHARGE INSTRUCTIONS REVIEWED. HEPLOCK REMOVED. PT TRANPORTED OUT VIA WHEELCHAIR.
== END 2019-10-18 15:16 | disposition home or self-care (01) | DRG 178 ==
LOC: RESCLI 01:41 → 4E 09:58
PROVIDERS: Internal Medicine; ADMIT Internal Medicine
DX: J15.6 Pneumonia due to other Gram-negative bacteria (principal); I48.20 Chronic atrial fibrillation, unspecified; I50.32 Chronic diastolic (congestive) heart failure; Z68.42 Body mass index [BMI] 45.0-49.9, adult; J18.9 Pneumonia, unspecified organism; E66.01 Morbid (severe) obesity due to excess calories; E78.2 Mixed hyperlipidemia; H91.3 Deaf nonspeaking, not elsewhere classified; I87.2 Venous insufficiency (chronic) (peripheral); I11.0 Hypertensive heart disease with heart failure; E11.65 Type 2 diabetes mellitus with hyperglycemia; K21.9 Gastro-esophageal reflux disease without esophagitis; Z83.3 Family history of diabetes mellitus; Z82.49 Family history of ischemic heart disease and other diseases of the circulatory system; Z80.8 Family history of malignant neoplasm of other organs or systems; Z79.899 Other long term (current) drug therapy; Z79.01 Long term (current) use of anticoagulants

== ENCOUNTER 2019-10-28 10:55 | Emergency (ER) | payer MEDICARE ==
[~2019-10-28] VITALS: Wt 117.5 kg
[~2019-10-28 10:55] MED LIST changes: +AMMONIUM LACTA227 GM T; +AVPAK AZITHROM250 M1 PO; +CEPACOL SORE T1 EACH PO; +PREDNISONE10 MG PO; +TYLENOL EXTRA500 M2 PO
== END 2019-10-28 12:41 | disposition home or self-care (01) ==
LOC: ED 10:55
DX: T83.038A Leakage of other urinary catheter, initial encounter (principal); K21.9 Gastro-esophageal reflux disease without esophagitis; E66.01 Morbid (severe) obesity due to excess calories; E78.2 Mixed hyperlipidemia; E11.9 Type 2 diabetes mellitus without complications; I11.0 Hypertensive heart disease with heart failure; I50.30 Unspecified diastolic (congestive) heart failure; Z79.899 Other long term (current) drug therapy; Y84.6 Urinary catheterization as the cause of abnormal reaction of the patient, or of later complication, without mention of misadventure at the time of the procedure; Y92.89 Other specified places as the place of occurrence of the external cause

== ENCOUNTER 2019-11-06 13:42 | Emergency (ER) | payer MEDICARE ==
[2019-11-06 14:50] LABS: BASO % 0.3 % (0.0-1.0); EOS # 0.3 10*3/uL (0.0-0.4); EOS % 3.4 % (1.0-4.0); HEMATOCRIT 50.4 % (42.0-52.0); LYMPH # 1.6 10*3/uL (1.3-4.4); LYMPH % 17.9 % (27.0-41.0); MEAN CELL VOLUME 91.3 fl (80.0-94.0); MEAN CORPUSCULAR HGB CONC 31.7 g/dl (33.0-37.0); MEAN PLATELET VOLUME 10.7 fl (9.6-12.3); MONO # 0.7 10*3/uL (0.1-1.0); MONO % 8.2 % (3.0-9.0); NEUT # 6.3 10*3/uL (2.3-7.9); PLATELET COUNT AUTOMATED 221 10*3/uL (130-400); RED BLOOD COUNT 5.52 10*6/uL (4.50-5.90); RED CELL DISTRI WIDTH 14.2 % (0-14.5)
[2019-11-06 15:03] LABS: ACT PARTIAL THROMBO TIME 28.3 SECONDS (20.0-32.1)
[2019-11-06 15:06] LABS: ALBUMIN 3.3 gm/dl (3.1-4.5); ALKALINE PHOSPHATASE 110 U/L (45-117); BUN 28 mg/dl (7-24); CHLORIDE 107 mmol/L (98-107); POTASSIUM 4.2 mmol/L (3.5-5.1); SGOT/AST 11 IU/L (3-35); SGPT/ALT 26 U/L (12-78); SODIUM 140 mmol/L (136-145)
[2019-11-06 15:08] LABS: TROPONIN I < 0.015 ng/ml (<0.045)
== END 2019-11-06 19:44 | disposition home or self-care (01) ==
LOC: ED 13:42
PROVIDERS: Emergency Medicine
DX: R07.89 Other chest pain (principal); R06.02 Shortness of breath; R05 Cough; Z46.6 Encounter for fitting and adjustment of urinary device; E66.9 Obesity, unspecified; I25.10 Atherosclerotic heart disease of native coronary artery without angina pectoris; E11.9 Type 2 diabetes mellitus without complications; I10 Essential (primary) hypertension; I48.20 Chronic atrial fibrillation, unspecified; I11.0 Hypertensive heart disease with heart failure; I50.30 Unspecified diastolic (congestive) heart failure; K21.9 Gastro-esophageal reflux disease without esophagitis; E78.2 Mixed hyperlipidemia; Z79.899 Other long term (current) drug therapy; Z79.2 Long term (current) use of antibiotics

== ENCOUNTER 2019-11-12 10:13 | Emergency (ER) | payer MEDICARE ==
[~2019-11-12] VITALS: Ht 167.6 cm; Wt 136.1 kg
== END 2019-11-12 10:52 | disposition home or self-care (01) ==
LOC: ED 10:13
DX: T83.031A Leakage of indwelling urethral catheter, initial encounter (principal); I25.10 Atherosclerotic heart disease of native coronary artery without angina pectoris; E11.9 Type 2 diabetes mellitus without complications; I10 Essential (primary) hypertension; Z79.899 Other long term (current) drug therapy; Z79.2 Long term (current) use of antibiotics; Y65.8 Other specified misadventures during surgical and medical care; Y92.89 Other specified places as the place of occurrence of the external cause

== ENCOUNTER 2019-11-20 14:19 | Inpatient (IN) | payer MEDICARE ==
[2019-11-20] VITALS (7 sets, daily range): BP systolic 116–139; BP diastolic 50–92
[~2019-11-20] VITALS: Ht 167.6 cm; Wt 121.1 kg
--- NOTE | 2019-11-20 14:20 | NUR ---
Pt arrived from triage with sisterElisabeth in place in plastic bag from home and discoloration noted on b/l lower legs with some edema.
--- NOTE | 2019-11-20 14:30 | NUR ---
Large obese soft abdomen noted.
--- NOTE | 2019-11-20 14:53 | NUR ---
Family requested interrupter and they stated they would be here around 430 pm.
[2019-11-20 14:58] LABS: BASO # 0.1 10*3/uL (0.0-0.1); BASO % 0.4 % (0.0-1.0); EOS # 0.2 10*3/uL (0.0-0.4); EOS % 2.1 % (1.0-4.0); HEMOGLOBIN 16.5 g/dl (14.0-18.0); LYMPH # 1.7 10*3/uL (1.3-4.4); LYMPH % 14.7 % (27.0-41.0); MEAN CELL VOLUME 92.5 fl (80.0-94.0); MEAN CORPUSCULAR HGB 29.4 pg (27.0-31.0); MEAN CORPUSCULAR HGB CONC 31.7 g/dl (33.0-37.0); MEAN PLATELET VOLUME 10.5 fl (9.6-12.3); MONO # 0.9 10*3/uL (0.1-1.0); MONO % 8.3 % (3.0-9.0); NEUT # 8.3 10*3/uL (2.3-7.9); NEUT % 74.1 % (47.0-73.0); PLATELET COUNT AUTOMATED 224 10*3/uL (130-400); RED BLOOD COUNT 5.62 10*6/uL (4.50-5.90); RED CELL DISTRI WIDTH 14.6 % (0-14.5); WHITE BLOOD COUNT 11.2 10*3/uL (4.8-10.8)
[2019-11-20 15:09] LABS: ACT PARTIAL THROMBO TIME 37.2 SECONDS (20.0-32.1); INTERNATIONAL NORM RATIO 1.1 (2.0-3.5)
--- NOTE | 2019-11-20 15:15 | NUR ---
Pt on cardic moniter and has been in and out normal sinus/ afib,
[2019-11-20 15:18] LABS: ALBUMIN 3.3 gm/dl (3.1-4.5); ALKALINE PHOSPHATASE 116 U/L (45-117); BUN 23 mg/dl (7-24); CHLORIDE 108 mmol/L (98-107); CREATININE 1.15 mg/dL (0.70-1.30); POTASSIUM 4.1 mmol/L (3.5-5.1); SGOT/AST 13 IU/L (3-35); SGPT/ALT 30 U/L (12-78); SODIUM 139 mmol/L (136-145)
[2019-11-20 15:19] LABS: TROPONIN I < 0.015 ng/ml (<0.045)
--- NOTE | 2019-11-20 16:20 | NUR ---
Interrupter at bedside and pt is playing video game on phone and does not need anything at this time.
--- NOTE | 2019-11-20 18:20 | NUR ---
No open wouds noted on skin.Lower legs with discoloration noted and flaky skin.Buttocks red but blanchable.
--- NOTE | 2019-11-20 18:35 | NUR ---
A 69, admitted to , under the services of LIGIA Carroll DO with a diagnosis of HEART FAILURE. Chief complaint is SOB. Patient arrived via ambulatory from ER. Monitor applied. Initial assessment completed. Vital signs taken and recorded. LIGIA CARROLL DO notified of admission to the unit. Orders received. See assessment for past medical history, medications and allergies. Patient and/or family oriented to unit. [facility]. visitation policy reviewed. Clothing/patient valuable form completed. JANET SOTOMAYOR
--- NOTE | 2019-11-20 19:40 | NUR ---
PT RESTING IN BED. NO COMPLAINTS AT THIS TIME. COMMUNICATING WITH PATIENT THOUGH NOTE PAD AT THIS TIME. ASSESSMENT COMPLETE. CALL LIGHT WITHIN REACH. WILL CONTINUE TO MONITOR.
[2019-11-20] MEDS ORDERED: GLUCOPHAGE1000 MG PO (19:44)
[2019-11-20] MEDS ORDERED: LEVOFLOXACIN500 MG PO (19:46)
[2019-11-20] MEDS ORDERED: LIPITOR20 MG PO (19:47)
[2019-11-21] VITALS: BP 107/78
--- NOTE | 2019-11-21 02:37 | NUR ---
24 HR chart check completed.
[2019-11-21 06:33] LABS: BASO # 0.1 10*3/uL (0.0-0.1); BASO % 0.5 % (0.0-1.0); EOS # 0.2 10*3/uL (0.0-0.4); EOS % 2.4 % (1.0-4.0); HEMATOCRIT 53.3 % (42.0-52.0); HEMOGLOBIN 16.6 g/dl (14.0-18.0); LYMPH # 1.6 10*3/uL (1.3-4.4); LYMPH % 15.4 % (27.0-41.0); MEAN CELL VOLUME 91.3 fl (80.0-94.0); MEAN CORPUSCULAR HGB 28.4 pg (27.0-31.0); MEAN CORPUSCULAR HGB CONC 31.1 g/dl (33.0-37.0); MEAN PLATELET VOLUME 10.7 fl (9.6-12.3); MONO # 1.1 10*3/uL (0.1-1.0); MONO % 10.7 % (3.0-9.0); NEUT # 7.1 10*3/uL (2.3-7.9); NEUT % 70.6 % (47.0-73.0); PLATELET COUNT AUTOMATED 218 10*3/uL (130-400); RED BLOOD COUNT 5.84 10*6/uL (4.50-5.90); RED CELL DISTRI WIDTH 14.6 % (0-14.5); WHITE BLOOD COUNT 10.1 10*3/uL (4.8-10.8)
[2019-11-21 07:05] LABS: ALBUMIN 3.4 gm/dl (3.1-4.5); BUN 24 mg/dl (7-24); CHLORIDE 104 mmol/L (98-107); CHOLESTEROL 103 mg/dL (<200); CREATININE 1.07 mg/dL (0.70-1.30); SGOT/AST 14 IU/L (3-35); SGPT/ALT 27 U/L (12-78); SODIUM 139 mmol/L (136-145)
[2019-11-21 07:11] LABS: ALKALINE PHOSPHATASE 114 U/L (45-117); FREE T4 1.04 ng/dl (0.76-1.46); HDL CHOLESTEROL 47 mg/dl (40-60); LDL CHOLESTEROL 42 mg/dL (9-159); PHOSPHOROUS 3.1 mg/dL (2.5-4.9); TOTAL PROTEIN 7.1 gm/dL (6.4-8.2); TRIGLYCERIDES 69 mg/dl (<150); VLDL CHOLESTEROL 14 mg/dL (6-40)
[2019-11-21 07:12] LABS: POTASSIUM 3.8 mmol/L (3.5-5.1)
[2019-11-21 08:00] VITALS: BP 112/70
--- NOTE | 2019-11-21 09:00 | NUR ---
Bicycle Repairer in to talk to patient. Patient states lives at home with sister. There are no steps in the home. [facility]ician[facility] [place] [facility] services: none Patient's level of ADLs: MINIMAL ASSIST Patient has working utilities: all working DME: walker, Follow-up physician's appointment after d/c: will be made by hospitalist nurse director upon discharge Does patient want to access PORTAL?: no Discharge plan discussed with patient,patient is deaf and a communication board and table is used to communicate with patient, he lives at home with his sister, he uses a walker for ambulation, he doesn't have any home services and doesn't want any at this time, case management will follow. LIZANDRO HERNANDEZ
--- NOTE | 2019-11-21 10:45 | NUR ---
PHYSICAL THERAPY Emely completed moderate level of complexity 07969 pt could benefit from SNF as limited amb w [facility] writes he will go home and sister will be there with him, would recomend HH f/u. Margie Fine PT
[2019-11-21 12:00] VITALS: BP 126/78
[2019-11-21 16:00] VITALS: BP 121/78
[2019-11-21 20:00] VITALS: BP 133/83
--- NOTE | 2019-11-21 22:48 | NUR ---
PATIENT WAS TOLD HE WAS ON A FLUID AND SODIUM RESTRICTION. PATIENT WAS CRYING AFTER BEING TOLD. I NOTIFIED HIM OF HIS RIGHTS AND LET HIM KNOW THAT HE HAS A RIGHT TO REFUSE THE RESTRICTIONS. I ALSO WENT OVER THE RATIONALE FOR THE RESTRICTIONS AND THE IMPORTANCE. PATIENT WROTE THAT HE WAS GOING TO REFUSE THE RESTRICTIONS AND THEN POINTED TO HIS HEAD AND WROTE THAT HE WOULD BE SMART ABOUT IT.
--- NOTE | 2019-11-21 23:17 | NUR ---
IN REPORT I WAS TOLD PATIENT DID NOT HAVE IV. PATIENT NOW HAS IV IN RIGHT ARM. JUANCARLOS RAINEY PUT THE IV IN. FLUSHED WITH NSS, HEP LOCKED, 22 GAUGE.
[2019-11-22] VITALS: BP 114/77
[2019-11-22 06:27] LABS: BASO # 0.1 10*3/uL (0.0-0.1); BASO % 0.4 % (0.0-1.0); EOS # 0.3 10*3/uL (0.0-0.4); EOS % 2.2 % (1.0-4.0); HEMATOCRIT 52.5 % (42.0-52.0); HEMOGLOBIN 16.8 g/dl (14.0-18.0); LYMPH # 1.7 10*3/uL (1.3-4.4); LYMPH % 14.9 % (27.0-41.0); MEAN CORPUSCULAR HGB 29.1 pg (27.0-31.0); MEAN PLATELET VOLUME 11.4 fl (9.6-12.3); MONO # 1.2 10*3/uL (0.1-1.0); MONO % 10.5 % (3.0-9.0); NEUT # 8.1 10*3/uL (2.3-7.9); NEUT % 71.6 % (47.0-73.0); PLATELET COUNT AUTOMATED 200 10*3/uL (130-400); RED BLOOD COUNT 5.77 10*6/uL (4.50-5.90); RED CELL DISTRI WIDTH 14.5 % (0-14.5); WHITE BLOOD COUNT 11.2 10*3/uL (4.8-10.8)
[2019-11-22 07:08] LABS: ALBUMIN 3.3 gm/dl (3.1-4.5); ALKALINE PHOSPHATASE 114 U/L (45-117); BUN 27 mg/dl (7-24); CHLORIDE 104 mmol/L (98-107); CREATININE 1.18 mg/dL (0.70-1.30); POTASSIUM 3.9 mmol/L (3.5-5.1); SGOT/AST 12 IU/L (3-35); SGPT/ALT 26 U/L (12-78); SODIUM 139 mmol/L (136-145); TOTAL PROTEIN 7.1 gm/dL (6.4-8.2)
--- NOTE | 2019-11-22 09:00 | NUR ---
case management visits with patient he states he will return home when medically stable and denies any home needs, case management will follow
--- NOTE | 2019-11-22 09:50 | NUR ---
PHYSICAL THERAPY Patient seen this am 1:1 for therapy visit and was sitting up on EOB upon therapist arrival. Patient identified by name / and was very pleasant, communicating with pen, paper secondary to Deaf / Mute. Patient resting HR 96 bpm on RA, transfering sit to stand CGA. Patient ambulates with use of wh walker, CGA, demonstrating decreased stride, bouts of increased fatigue, needing several brief standing rest breaks < 20 seconds, 45'x 2. Patient returned to bedside arm chair and remained with call light, tray table and IPAD. Will continue per POC as tolerated, total treatment time 17 minutes. [place], CANDY DEPOSITING MACHINE OPERATOR
[2019-11-22 12:00] VITALS: BP 118/84
[2019-11-22 16:00] VITALS: BP 116/72
--- NOTE | 2019-11-22 19:26 | NUR ---
CALL PLACED TO GRZEGORZ ALEMAN, CALL ANSWERED BY LALA. SHE STATED NO ANSWERI LEFT COREY FOR CALL BACK.
--- NOTE | 2019-11-22 19:30 | NUR ---
MADE PATIENTS SISTER AWARE OF TRANSFER
[2019-11-22 20:00] VITALS: BP 118/70
--- NOTE | 2019-11-22 20:02 | NUR ---
PATIENT GIVEN PO LOPRESSOR EARLY. HR 110S-120S. BP 118/70. DR. MARY BETH DURAN.
--- NOTE | 2019-11-22 21:17 | NUR ---
ATTEMPTED TO BLADDER SCAN PATIENT. PATIENTS ABDOMEN FIRM AND DISTENDED. ONLY 40CC SHOWNED ON BLADDER SCANNER. PATIENT STILL BLEEDING FROM PENIS. PATIENT GIVEN ICE PACK. NOTIFIFED DR. CLINTON. 2MG MORPHINE Q4HR PRN AND 5MG NORCO Q4 PRN ORDERED. WILL CONTINUE TO MONTIOR.
--- NOTE | 2019-11-22 22:11 | NUR ---
PT YELLS WITH PAIN WHEN URINATING. MEDICATED WITH NORCO PO PER PRN ORDER, SEE EMAR. AIDES ARE BATHING PT. WILL CON'T TO MONITOR.
--- NOTE | 2019-11-22 22:24 | NUR ---
ATTEMPTED TO CALL PATIENT SISTERS. NO ANSWER. VOICEMAIL LEFT.
--- NOTE | 2019-11-22 23:36 | NUR ---
LIFETEAM HERE TO SUPERVISOR CARBON PAPER COATING PATIENT. PATIENT LEFT WITH BELONGINGS AND MEDICATIONS.
--- NOTE | 2019-11-22 23:38 | NUR ---
ATTEMPTED TO CALL REPORT. NO ANSWER.
--- NOTE | 2019-11-22 23:49 | NUR ---
GAVE REPORT TO CHANDU FROM [facility].
--- NOTE | 2019-11-23 07:24 | NUR ---
ATTEMPTED TO CALL PATIENTS SISTER TO TELL HER SHE DID NOT HAVE TO COME TO THE HOSPITAL TO HIDE EXAMINER PATIENTS BELONGINGS. VOICEMAIL LEFT.
--- NOTE | 2019-11-25 07:32 | NUR ---
PHYSICAL THERAPY CO-SIGN I approve of the Physical Therapy notes written above. Margie Fine PT
== END 2019-11-22 23:36 | disposition other institution (70) | DRG 292 ==
LOC: ED 14:19 → EDHOLD 17:49 → 4E 17:49
PROVIDERS: Emergency Medicine; Internal Medicine; ADMIT Family Medicine
DX: I11.0 Hypertensive heart disease with heart failure (principal); R65.10 Systemic inflammatory response syndrome (SIRS) of non-infectious origin without acute organ dysfunction; E44.0 Moderate protein-calorie malnutrition; Z68.42 Body mass index [BMI] 45.0-49.9, adult; I48.20 Chronic atrial fibrillation, unspecified; D68.69 Other thrombophilia; T83.83XA Hemorrhage due to genitourinary prosthetic devices, implants and grafts, initial encounter; I50.33 Acute on chronic diastolic (congestive) heart failure; E87.8 Other disorders of electrolyte and fluid balance, not elsewhere classified; H91.3 Deaf nonspeaking, not elsewhere classified; K21.9 Gastro-esophageal reflux disease without esophagitis; E78.2 Mixed hyperlipidemia; I87.2 Venous insufficiency (chronic) (peripheral); E66.01 Morbid (severe) obesity due to excess calories; Z96.0 Presence of urogenital implants; Z82.49 Family history of ischemic heart disease and other diseases of the circulatory system; E78.00 Pure hypercholesterolemia, unspecified; Z83.3 Family history of diabetes mellitus; Z79.899 Other long term (current) drug therapy

== ENCOUNTER 2019-12-19 21:42 | Emergency (ER) | payer MEDICARE ==
[~2019-12-19] VITALS: Ht 177.8 cm; Wt 127.0 kg
[~2019-12-19 21:42] MED LIST changes: +GLUCOPHAGE1000 MG PO; +LIPITOR20 MG PO
[2019-12-19 22:33] LABS: BASO % 0.4 % (0.0-1.0); EOS # 0.2 10*3/uL (0.0-0.4); EOS % 2.6 % (1.0-4.0); HEMOGLOBIN 17.4 g/dl (14.0-18.0); LYMPH # 1.5 10*3/uL (1.3-4.4); LYMPH % 16.2 % (27.0-41.0); MEAN CELL VOLUME 91.5 fl (80.0-94.0); MEAN CORPUSCULAR HGB CONC 31.6 g/dl (33.0-37.0); MEAN PLATELET VOLUME 10.5 fl (9.6-12.3); MONO % 10.1 % (3.0-9.0); NEUT # 6.6 10*3/uL (2.3-7.9); NEUT % 70.4 % (47.0-73.0); PLATELET COUNT AUTOMATED 268 10*3/uL (130-400); RED BLOOD COUNT 6.01 10*6/uL (4.50-5.90); RED CELL DISTRI WIDTH 14.7 % (0-14.5); WHITE BLOOD COUNT 9.4 10*3/uL (4.8-10.8)
[2019-12-19 22:50] LABS: ALBUMIN 3.5 gm/dl (3.1-4.5); ALKALINE PHOSPHATASE 122 U/L (45-117); BUN 29 mg/dl (7-24); CHLORIDE 107 mmol/L (98-107); CREATININE 1.37 mg/dL (0.70-1.30); SGOT/AST 16 IU/L (3-35); SGPT/ALT 30 U/L (12-78); SODIUM 140 mmol/L (136-145); TOTAL PROTEIN 7.7 gm/dL (6.4-8.2)
[2019-12-19] MEDS ORDERED: CYCLOBENZAPRINE5 M3 PO (23:49)
== END 2019-12-20 00:37 | disposition home or self-care (01) ==
LOC: ED 21:42
PROVIDERS: Nurse Practitioner Family
DX: S39.012A Strain of muscle, fascia and tendon of lower back, initial encounter (principal); K59.00 Constipation, unspecified; I48.20 Chronic atrial fibrillation, unspecified; K21.9 Gastro-esophageal reflux disease without esophagitis; E11.9 Type 2 diabetes mellitus without complications; E66.01 Morbid (severe) obesity due to excess calories; E78.2 Mixed hyperlipidemia; E78.00 Pure hypercholesterolemia, unspecified; I50.9 Heart failure, unspecified; I11.0 Hypertensive heart disease with heart failure; Z79.899 Other long term (current) drug therapy; X58.XXXA Exposure to other specified factors, initial encounter; Y93.89 Activity, other specified; Y92.89 Other specified places as the place of occurrence of the external cause; Y99.8 Other external cause status

== ENCOUNTER 2020-01-29 18:54 | Inpatient (IN) | payer MEDICARE ==
[~2020-01-29] VITALS: Ht 152.4 cm; Wt 108.9 kg
[~2020-01-29 18:54] MED LIST changes: +CYCLOBENZAPRINE5 M3 PO
[2020-01-29 19:01] VITALS: BP 137/96
[2020-01-29 19:50] LABS: BASO # 0.1 10*3/uL (0.0-0.1); BASO % 0.6 % (0.0-1.0); EOS # 0.3 10*3/uL (0.0-0.4); EOS % 2.9 % (1.0-4.0); LYMPH # 1.5 10*3/uL (1.3-4.4); MEAN CELL VOLUME 92.7 fl (80.0-94.0); MEAN CORPUSCULAR HGB 30.4 pg (27.0-31.0); MEAN CORPUSCULAR HGB CONC 32.8 g/dl (33.0-37.0); MEAN PLATELET VOLUME 10.7 fl (9.6-12.3); MONO # 0.9 10*3/uL (0.1-1.0); MONO % 9.1 % (3.0-9.0); NEUT # 7.3 10*3/uL (2.3-7.9); NEUT % 72.1 % (47.0-73.0); PLATELET COUNT AUTOMATED 258 10*3/uL (130-400); RED BLOOD COUNT 5.72 10*6/uL (4.50-5.90); RED CELL DISTRI WIDTH 14.1 % (0-14.5); WHITE BLOOD COUNT 10.1 10*3/uL (4.8-10.8)
[2020-01-29 20:06] LABS: ALBUMIN 3.3 gm/dl (3.1-4.5); ALKALINE PHOSPHATASE 103 U/L (45-117); BUN 30 mg/dl (7-24); CHLORIDE 109 mmol/L (98-107); CREATININE 0.97 mg/dL (0.70-1.30); SGOT/AST 22 IU/L (3-35); SGPT/ALT 37 U/L (12-78); SODIUM 141 mmol/L (136-145); TOTAL PROTEIN 7.2 gm/dL (6.4-8.2)
[2020-01-29 20:10] LABS: TROPONIN I < 0.015 ng/ml (<0.045)
--- NOTE | 2020-01-29 21:17 | NUR ---
PT UP TO BATHROOM WITH STEADY GAIT. PT WAS UNABLE TO PROVIDE URINE SAMPLE, WILL TRY NEXT TIME. WILL CONTINUE TO MONITOR.
--- NOTE | 2020-01-30 00:40 | NUR ---
pt resting quietly in room denies needs at this time. bed ready, per [facility] they cannot take patient right now. will call back.
[2020-01-30 00:55] VITALS: BP 128/77
--- NOTE | 2020-01-30 01:01 | NUR ---
CALLED UP TO [facility] AGAIN, STATES THEY ARE NOT ABLE TO TAKE THIS PT AT THIS TIME. WILL CALL BACK, CORPORATE OFFICER AWARE.
[2020-01-30 01:20] LABS: LDH 174 U/L (87-241)
--- NOTE | 2020-01-30 01:26 | NUR ---
[facility] STAFF STILL NOT ABLE TO TAKE THIS PATIENT, TEAMCENTER SOLUTION ARCHITECT AWARE.
--- NOTE | 2020-01-30 01:52 | NUR ---
CALLED TO FLOOR, STATES THEY WILL TAKE PT NOW. PT TRANSPORTED TO [facility] IN STABE CONDITION. BEDSIDE REPORT TO LISA BAUER.
[2020-01-30 01:53] LABS: BILIRUBIN NEGATIVE (NEGATIVE); BLOOD NEGATIVE (NEGATIVE); CLARITY CLEAR (CLEAR); COLOR YELLOW (YELLOW); GLUCOSE NEGATIVE (NEGATIVE); KETONE NEGATIVE (NEGATIVE); LEUKO ESTERASE NEGATIVE (NEGATIVE); NITRITE NEGATIVE (NEGATIVE); SPECIFIC GRAVITY 1.015 (1.005-1.030); UROBILINOGEN 0.2 E.U./dl (0.2-1.0)
[2020-01-30 02:00] VITALS: BP 122/76; BP 124/72
--- NOTE | 2020-01-30 02:00 | NUR ---
A 69, admitted to [facility], under the services of JANAE Alva DO with a diagnosis of ACUTE HEART FAILURE, CHF. Chief complaint is SOB. Patient arrived via bed from ER. Monitor applied. Initial assessment completed. Vital signs taken and recorded. JANAE ALVA DO notified of admission to the unit. Orders received. See assessment for past medical history, medications and allergies. Patient and/or family oriented to unit. [address] visitation policy reviewed. Clothing/patient valuable form completed. LISA XIE
[2020-01-30 02:01] LABS: RBC 0-2 rbc/hpf (0-2); WBC 0-2 wbc/hpf (0-5)
--- NOTE | 2020-01-30 06:54 | NUR ---
CONSULT CALLED TO DR [place]
[2020-01-30 08:00] VITALS: BP 127/82
[2020-01-30 12:00] VITALS: BP 126/70; BP 127/82
[2020-01-30] MEDS ORDERED: LASIX20 MG PO (12:18)
[2020-01-30] MEDS ORDERED: K-TAB10 MEQ PO (12:18)
[2020-01-30 16:00] VITALS: BP 133/87
--- NOTE | 2020-01-30 18:14 | NUR ---
Discharge instructions reviewed with patient/family. Patient receptive and verbalizes understanding. Follow-up care arranged. Written instructions given to patient/family. LA BUCHANAN
[2020-01-31 07:06] LABS: HEP B CORE AB, IGM Negative (Negative); HEPATITIS B SURFACE AG Negative (Negative); HEPATITIS C AB 0.1 (0.0-0.9); HEPATITIS C VIRUS ANTIBODY 0.1 s/co (0.0-0.9)
== END 2020-01-30 18:14 | disposition home or self-care (01) | DRG 392 ==
LOC: ED 18:54 → EDHOLD 01-30 00:14 → 5E 01-30 00:25
PROVIDERS: Internal Medicine; ADMIT Internal Medicine
DX: K21.9 Gastro-esophageal reflux disease without esophagitis (principal); I48.20 Chronic atrial fibrillation, unspecified; I50.32 Chronic diastolic (congestive) heart failure; Z68.42 Body mass index [BMI] 45.0-49.9, adult; I11.0 Hypertensive heart disease with heart failure; Z20.828 Contact with and (suspected) exposure to other viral communicable diseases; I87.2 Venous insufficiency (chronic) (peripheral); H91.3 Deaf nonspeaking, not elsewhere classified; E78.2 Mixed hyperlipidemia; E55.9 Vitamin D deficiency, unspecified; E11.69 Type 2 diabetes mellitus with other specified complication; E66.01 Morbid (severe) obesity due to excess calories; Z79.899 Other long term (current) drug therapy; Z79.84 Long term (current) use of oral hypoglycemic drugs; Z82.49 Family history of ischemic heart disease and other diseases of the circulatory system; Z83.3 Family history of diabetes mellitus; Z80.9 Family history of malignant neoplasm, unspecified

== ENCOUNTER → 2020-03-05 | Outpatient (CLI) | payer MEDICARE ==
[~2020-03-05] MED LIST changes: +K-TAB10 MEQ PO
== END | disposition home or self-care (01) ==
LOC: RESCLI 00:32
DX: I48.0 Paroxysmal atrial fibrillation (principal); N40.1 Benign prostatic hyperplasia with lower urinary tract symptoms; I10 Essential (primary) hypertension; E66.01 Morbid (severe) obesity due to excess calories; E78.2 Mixed hyperlipidemia; E55.9 Vitamin D deficiency, unspecified; H91.3 Deaf nonspeaking, not elsewhere classified; K21.9 Gastro-esophageal reflux disease without esophagitis; E11.9 Type 2 diabetes mellitus without complications; J45.909 Unspecified asthma, uncomplicated

== ENCOUNTER → 2020-05-13 | Outpatient (CLI) | payer MEDICARE ==
[2020-05-13 16:42] LABS: BILIRUBIN NEGATIVE (NEGATIVE); BLOOD NEGATIVE (NEGATIVE); CLARITY CLEAR (CLEAR); COLOR YELLOW (YELLOW); GLUCOSE NEGATIVE (NEGATIVE); KETONE NEGATIVE (NEGATIVE); LEUKO ESTERASE TRACE (NEGATIVE); NITRITE NEGATIVE (NEGATIVE); RBC 0-2 rbc/hpf (0-2); UROBILINOGEN 0.2 E.U./dl (0.2-1.0)
[2020-05-13 16:43] LABS: BACTERIA TRACE; MUCOUS TRACE
[2020-05-13 16:55] LABS: BUN 22 mg/dl (7-24); CHLORIDE 108 mmol/L (98-107); CREATININE 1.09 mg/dL (0.70-1.30); POTASSIUM 4.2 mmol/L (3.5-5.1); SODIUM 140 mmol/L (136-145)
[2020-05-13 16:56] LABS: TROPONIN I < 0.015 ng/ml (<0.045)
[2020-05-13 17:05] LABS: DIGOXIN 0.06 ng/ml (0.8-2.0)
== END | disposition home or self-care (01) ==
LOC: RESCLI 14:48
PROVIDERS: Internal Medicine Nephrology; Student in an Organized Health Care Education/Training Program
DX: I48.0 Paroxysmal atrial fibrillation (principal); I12.9 Hypertensive chronic kidney disease with stage 1 through stage 4 chronic kidney disease, or unspecified chronic kidney disease; N18.3 Chronic kidney disease, stage 3 (moderate); E66.01 Morbid (severe) obesity due to excess calories; E11.9 Type 2 diabetes mellitus without complications; E78.2 Mixed hyperlipidemia; E55.9 Vitamin D deficiency, unspecified; H91.3 Deaf nonspeaking, not elsewhere classified; N40.1 Benign prostatic hyperplasia with lower urinary tract symptoms; K21.9 Gastro-esophageal reflux disease without esophagitis; J45.909 Unspecified asthma, uncomplicated; K59.00 Constipation, unspecified; Z98.890 Other specified postprocedural states; Z79.899 Other long term (current) drug therapy

== ENCOUNTER 2020-06-10 20:46 | Emergency (ER) | payer MEDICARE ==
[2020-06-10 21:33] LABS: BASO # 0.1 10*3/uL (0.0-0.1); BASO % 0.5 % (0.0-1.0); EOS # 0.2 10*3/uL (0.0-0.4); HEMATOCRIT 55.2 % (42.0-52.0); LYMPH # 1.6 10*3/uL (1.3-4.4); LYMPH % 14.9 % (27.0-41.0); MEAN CELL VOLUME 92.3 fl (80.0-94.0); MEAN CORPUSCULAR HGB 30.1 pg (27.0-31.0); MEAN CORPUSCULAR HGB CONC 32.6 g/dl (33.0-37.0); MEAN PLATELET VOLUME 10.9 fl (9.6-12.3); MONO # 0.9 10*3/uL (0.1-1.0); MONO % 7.9 % (3.0-9.0); NEUT # 8.2 10*3/uL (2.3-7.9); NEUT % 74.4 % (47.0-73.0); PLATELET COUNT AUTOMATED 239 10*3/uL (130-400); RED BLOOD COUNT 5.98 10*6/uL (4.50-5.90); RED CELL DISTRI WIDTH 13.4 % (0-14.5)
[2020-06-10 21:49] LABS: ALBUMIN 3.6 gm/dl (3.1-4.5); ALKALINE PHOSPHATASE 122 U/L (45-117); BUN 25 mg/dl (7-24); CHLORIDE 106 mmol/L (98-107); CREATININE 1.18 mg/dL (0.70-1.30); POTASSIUM 4.2 mmol/L (3.5-5.1); SGOT/AST 9 IU/L (3-35); SGPT/ALT 27 U/L (12-78); SODIUM 139 mmol/L (136-145); TOTAL PROTEIN 7.8 gm/dL (6.4-8.2)
[2020-06-11] MEDS ORDERED: SEPTDS PO (00:40)
== END 2020-06-11 01:35 | disposition home or self-care (01) ==
LOC: ED 20:46
PROVIDERS: Student in an Organized Health Care Education/Training Program
DX: I87.2 Venous insufficiency (chronic) (peripheral) (principal); L03.116 Cellulitis of left lower limb; L03.115 Cellulitis of right lower limb; Z79.899 Other long term (current) drug therapy

== ENCOUNTER 2020-06-24 02:23 | Emergency (ER) | payer MEDICARE ==
[2020-06-24] MEDS ORDERED: AUGMENTIN 875875 MG PO (02:49)
== END 2020-06-24 03:19 | disposition home or self-care (01) ==
LOC: ED 02:23
DX: I87.2 Venous insufficiency (chronic) (peripheral) (principal); Z79.899 Other long term (current) drug therapy

== ENCOUNTER 2020-07-04 04:51 | Emergency (ER) | payer MEDICARE ==
[2020-07-04] MEDS ORDERED: NYSTATIN15 GM T (05:21)
== END 2020-07-04 05:44 | disposition home or self-care (01) ==
LOC: ED 04:51
DX: L30.4 Erythema intertrigo (principal); B37.89 Other sites of candidiasis; Z79.899 Other long term (current) drug therapy

== ENCOUNTER → 2020-07-29 | Outpatient (CLI) | payer MEDICARE ==
[~2020-07-29] MED LIST changes: +NYSTATIN15 GM T
== END | disposition home or self-care (01) ==
LOC: RESCLI 05:12
PROVIDERS: ATTEND Student in an Organized Health Care Education/Training Program
DX: K59.00 Constipation, unspecified (principal); I48.0 Paroxysmal atrial fibrillation; I10 Essential (primary) hypertension; J45.909 Unspecified asthma, uncomplicated; N40.1 Benign prostatic hyperplasia with lower urinary tract symptoms; E78.2 Mixed hyperlipidemia; E11.9 Type 2 diabetes mellitus without complications; K21.9 Gastro-esophageal reflux disease without esophagitis

== ENCOUNTER 2020-10-20 18:06 | Emergency (ER) | payer MEDICARE | END 2020-10-20 18:15 | disposition left against medical advice (07) | LOC: ED 18:06 | DX: H91.3 Deaf nonspeaking, not elsewhere classified (principal); Z53.21 Procedure and treatment not carried out due to patient leaving prior to being seen by health care provider ==

== ENCOUNTER 2020-10-20 18:33 | Emergency (ER) | payer MEDICARE ==
[2020-10-20 19:04] LABS: BASO % 0.4 % (0.0-1.0); EOS # 0.2 10*3/uL (0.0-0.4); HEMATOCRIT 54.6 % (42.0-52.0); LYMPH # 1.8 10*3/uL (1.3-4.4); LYMPH % 17.1 % (27.0-41.0); MEAN CELL VOLUME 93.2 fl (80.0-94.0); MEAN CORPUSCULAR HGB 29.5 pg (27.0-31.0); MEAN CORPUSCULAR HGB CONC 31.7 g/dl (33.0-37.0); MEAN PLATELET VOLUME 10.7 fl (9.6-12.3); MONO # 1.1 10*3/uL (0.1-1.0); NEUT # 7.5 10*3/uL (2.3-7.9); NEUT % 70.2 % (47.0-73.0); PLATELET COUNT AUTOMATED 280 10*3/uL (130-400); RED BLOOD COUNT 5.86 10*6/uL (4.50-5.90); RED CELL DISTRI WIDTH 12.6 % (0-14.5); WHITE BLOOD COUNT 10.7 10*3/uL (4.8-10.8)
[2020-10-20 19:17] LABS: ACT PARTIAL THROMBO TIME 35.3 SECONDS (20.0-32.1); INTERNATIONAL NORM RATIO 1.2 (2.0-3.5)
[2020-10-20 19:21] LABS: ALBUMIN 3.2 gm/dl (3.1-4.5); ALKALINE PHOSPHATASE 115 U/L (45-117); BUN 30 mg/dl (7-24); CHLORIDE 107 mmol/L (98-107); CREATININE 1.43 mg/dL (0.70-1.30); POTASSIUM 4.1 mmol/L (3.5-5.1); SGOT/AST 10 IU/L (3-35); SGPT/ALT 29 U/L (12-78); SODIUM 138 mmol/L (136-145); TOTAL PROTEIN 7.5 gm/dL (6.4-8.2)
[2020-10-20 19:24] LABS: TROPONIN I < 0.015 ng/ml (<0.045)
== END 2020-10-20 22:36 | disposition home or self-care (01) ==
LOC: ED 18:33
PROVIDERS: Family Medicine
DX: R07.89 Other chest pain (principal); R06.02 Shortness of breath; I48.91 Unspecified atrial fibrillation; E11.9 Type 2 diabetes mellitus without complications; I11.0 Hypertensive heart disease with heart failure; I50.9 Heart failure, unspecified; I25.10 Atherosclerotic heart disease of native coronary artery without angina pectoris; Z79.899 Other long term (current) drug therapy; Z79.2 Long term (current) use of antibiotics

== ENCOUNTER → 2020-11-11 | Outpatient (CLI) | payer MEDICARE ==
[~2020-11-11] MED LIST changes: +Bactroban Oint22 GM T
[2020-11-11 15:44] LABS: BUN 25 mg/dl (7-24); CHLORIDE 105 mmol/L (98-107); CREATININE 1.02 mg/dL (0.70-1.30); POTASSIUM 3.8 mmol/L (3.5-5.1); SODIUM 136 mmol/L (136-145)
== END | disposition home or self-care (01) ==
LOC: RESCLI 01:50
PROVIDERS: Internal Medicine; ATTEND Internal Medicine Nephrology
DX: I48.0 Paroxysmal atrial fibrillation (principal); E11.9 Type 2 diabetes mellitus without complications; K59.00 Constipation, unspecified; K21.9 Gastro-esophageal reflux disease without esophagitis; E78.2 Mixed hyperlipidemia; N40.1 Benign prostatic hyperplasia with lower urinary tract symptoms; J45.909 Unspecified asthma, uncomplicated; I10 Essential (primary) hypertension; G47.00 Insomnia, unspecified; Z12.11 Encounter for screening for malignant neoplasm of colon; Z79.899 Other long term (current) drug therapy; Z79.84 Long term (current) use of oral hypoglycemic drugs; Z98.890 Other specified postprocedural states

== ENCOUNTER 2021-01-12 19:03 | Emergency (ER) | payer MEDICARE ==
[~2021-01-12] VITALS: Ht 154.9 cm; Wt 77.6 kg
[~2021-01-12 19:03] MED LIST changes: -Bactroban Oint22 GM T
[2021-01-12] MEDS ORDERED: Bactroban Oint22 GM T (19:38)
[2021-01-12] MEDS ORDERED: CEPHALEXIN500 M1 PO (19:38)
== END 2021-01-12 19:40 | disposition home or self-care (01) ==
LOC: ED 19:03
DX: L03.116 Cellulitis of left lower limb (principal); L08.9 Local infection of the skin and subcutaneous tissue, unspecified; I25.10 Atherosclerotic heart disease of native coronary artery without angina pectoris; E11.9 Type 2 diabetes mellitus without complications; Z79.899 Other long term (current) drug therapy; Z79.84 Long term (current) use of oral hypoglycemic drugs

== ENCOUNTER → 2021-01-21 | Outpatient (CLI) | payer MEDICARE ==
[~2021-01-21] MED LIST changes: +Bactroban Oint22 GM T
[2021-01-21 15:21] LABS: BILIRUBIN Negative (Negative); BLOOD Negative (Negative); CLARITY Clear (Clear); COLOR Yellow (Yellow); GLUCOSE 3+ (Negative); KETONE Negative (Negative); LEUKO ESTERASE Negative (Negative); NITRITE Negative (Negative); SPECIFIC GRAVITY >= 1.030 (1.001-1.030); UROBILINOGEN 0.2 E.U./dl (0.0-1.0)
[2021-01-21 18:29] LABS: BACTERIA TRACE; EPITHELIAL CELLS 0-2; FINE GRANULAR CAST 0-2; HYALINE CAST 0-2; MUCOUS TRACE; WBC 0-2 wbc/hpf (0-5)
== END | disposition home or self-care (01) ==
LOC: RESCLI 13:33
PROVIDERS: ATTEND Internal Medicine
DX: N40.1 Benign prostatic hyperplasia with lower urinary tract symptoms (principal); E78.2 Mixed hyperlipidemia; J45.909 Unspecified asthma, uncomplicated; I48.0 Paroxysmal atrial fibrillation; K59.00 Constipation, unspecified; K21.9 Gastro-esophageal reflux disease without esophagitis; I10 Essential (primary) hypertension; E11.40 Type 2 diabetes mellitus with diabetic neuropathy, unspecified; Z79.899 Other long term (current) drug therapy; Z79.84 Long term (current) use of oral hypoglycemic drugs

== ENCOUNTER 2021-03-31 20:45 | Emergency (ER) | payer MEDICARE ==
[~2021-03-31] VITALS: Ht 165.1 cm; Wt 95.3 kg
[2021-03-31 21:40] LABS: BASO % 0.3 % (0.0-1.0); EOS # 0.3 10*3/uL (0.0-0.4); EOS % 2.3 % (1.0-4.0); LYMPH # 1.5 10*3/uL (1.3-4.4); LYMPH % 12.6 % (27.0-41.0); MEAN CELL VOLUME 93.3 fl (80.0-94.0); MEAN CORPUSCULAR HGB 30.6 pg (27.0-31.0); MEAN CORPUSCULAR HGB CONC 32.8 g/dl (33.0-37.0); MEAN PLATELET VOLUME 10.9 fl (9.6-12.3); MONO % 8.5 % (3.0-9.0); NEUT % 75.9 % (47.0-73.0); PLATELET COUNT AUTOMATED 237 10*3/uL (130-400); RED BLOOD COUNT 5.79 10*6/uL (4.50-5.90); RED CELL DISTRI WIDTH 13.1 % (0-14.5); WHITE BLOOD COUNT 11.9 10*3/uL (4.8-10.8)
[2021-03-31 22:02] LABS: BUN 28 mg/dl (7-24); CHLORIDE 107 mmol/L (98-107); CREATININE 1.24 mg/dL (0.70-1.30); POTASSIUM 4.1 mmol/L (3.5-5.1); SODIUM 136 mmol/L (136-145)
[2021-03-31] MEDS ORDERED: VIBRAMYCIN100 MG PO (22:26)
== END 2021-03-31 23:17 | disposition home or self-care (01) ==
LOC: ED 20:45
PROVIDERS: Internal Medicine
DX: I87.2 Venous insufficiency (chronic) (peripheral) (principal)

== ENCOUNTER 2021-04-16 09:50 | Emergency (ER) | payer MEDICARE ==
[2021-04-16 11:30] LABS: BASO # 0.1 10*3/uL (0.0-0.1); BASO % 0.6 % (0.0-1.0); EOS # 0.4 10*3/uL (0.0-0.4); EOS % 3.8 % (1.0-4.0); HEMATOCRIT 53.3 % (42.0-52.0); LYMPH # 1.3 10*3/uL (1.3-4.4); LYMPH % 11.4 % (27.0-41.0); MEAN CORPUSCULAR HGB 30.5 pg (27.0-31.0); MEAN CORPUSCULAR HGB CONC 32.5 g/dl (33.0-37.0); MEAN PLATELET VOLUME 10.6 fl (9.6-12.3); MONO # 0.8 10*3/uL (0.1-1.0); MONO % 7.5 % (3.0-9.0); NEUT # 8.5 10*3/uL (2.3-7.9); NEUT % 76.2 % (47.0-73.0); PLATELET COUNT AUTOMATED 249 10*3/uL (130-400); RED BLOOD COUNT 5.67 10*6/uL (4.50-5.90); RED CELL DISTRI WIDTH 13.2 % (0-14.5); WHITE BLOOD COUNT 11.2 10*3/uL (4.8-10.8)
[2021-04-16 11:45] LABS: ALBUMIN 3.3 gm/dl (3.1-4.5); ALKALINE PHOSPHATASE 117 U/L (45-117); BUN 25 mg/dl (7-24); CHLORIDE 107 mmol/L (98-107); CREATININE 1.03 mg/dL (0.70-1.30); POTASSIUM 4.1 mmol/L (3.5-5.1); SGOT/AST 11 IU/L (3-35); SGPT/ALT 26 U/L (12-78); SODIUM 134 mmol/L (136-145); TOTAL PROTEIN 7.8 gm/dL (6.4-8.2)
== END 2021-04-16 14:05 | disposition home or self-care (01) ==
LOC: ED 09:50
PROVIDERS: Emergency Medicine
DX: I87.332 Chronic venous hypertension (idiopathic) with ulcer and inflammation of left lower extremity (principal); L97.829 Non-pressure chronic ulcer of other part of left lower leg with unspecified severity; H91.90 Unspecified hearing loss, unspecified ear; I11.0 Hypertensive heart disease with heart failure; I50.33 Acute on chronic diastolic (congestive) heart failure; I48.20 Chronic atrial fibrillation, unspecified; E11.9 Type 2 diabetes mellitus without complications; K21.9 Gastro-esophageal reflux disease without esophagitis; E78.2 Mixed hyperlipidemia; E66.01 Morbid (severe) obesity due to excess calories; Z79.899 Other long term (current) drug therapy; Z79.2 Long term (current) use of antibiotics

== ENCOUNTER → 2021-04-29 | Outpatient (CLI) | payer MEDICARE | END | disposition home or self-care (01) | LOC: US 13:56 | PROVIDERS: ATTEND Podiatrist | DX: R60.1 Generalized edema (principal) ==

== ENCOUNTER 2021-09-09 20:22 | Emergency (ER) | payer MEDICARE ==
[2021-09-09 23:43] LABS: BASO % 0.4 % (0.0-1.0); EOS # 0.3 10*3/uL (0.0-0.4); EOS % 3.3 % (1.0-4.0); HEMATOCRIT 52.6 % (42.0-52.0); LYMPH # 1.4 10*3/uL (1.3-4.4); LYMPH % 15.2 % (27.0-41.0); MEAN CELL VOLUME 96.3 fl (80.0-94.0); MEAN CORPUSCULAR HGB 31.1 pg (27.0-31.0); MEAN CORPUSCULAR HGB CONC 32.3 g/dl (33.0-37.0); MEAN PLATELET VOLUME 10.8 fl (9.6-12.3); MONO % 10.4 % (3.0-9.0); NEUT # 6.4 10*3/uL (2.3-7.9); NEUT % 70.4 % (47.0-73.0); PLATELET COUNT AUTOMATED 223 10*3/uL (130-400); RED BLOOD COUNT 5.46 10*6/uL (4.50-5.90); RED CELL DISTRI WIDTH 12.7 % (0-14.5); WHITE BLOOD COUNT 9.1 10*3/uL (4.8-10.8)
[2021-09-10 00:14] LABS: ALBUMIN 3.1 gm/dl (3.1-4.5); ALKALINE PHOSPHATASE 105 U/L (45-117); BUN 25 mg/dl (7-24); CHLORIDE 106 mmol/L (98-107); POTASSIUM 4.3 mmol/L (3.5-5.1); SGOT/AST 10 IU/L (3-35); SGPT/ALT 27 U/L (12-78); SODIUM 134 mmol/L (136-145); TOTAL PROTEIN 7.9 gm/dL (6.4-8.2)
[2021-09-10 01:08] LABS: BILIRUBIN Negative (Negative); BLOOD Negative (Negative); CLARITY Clear (Clear); COLOR Yellow (Yellow); GLUCOSE 3+ (Negative); KETONE Negative (Negative); LEUKO ESTERASE Negative (Negative); NITRITE Negative (Negative); SPECIFIC GRAVITY 1.015 (1.001-1.030); UROBILINOGEN 0.2 E.U./dl (0.0-1.0)
[2021-09-10 01:43] LABS: BACTERIA TRACE
[2021-09-11] MEDS ORDERED: HYDROCODONE-AC1 EAC1 PO (10:29)
[2021-09-11] MEDS ORDERED: LIDOCAINE HCL5 ML MM (10:32)
== END 2021-09-10 02:47 | disposition home or self-care (01) ==
LOC: ED 20:22
PROVIDERS: Internal Medicine
DX: R33.9 Retention of urine, unspecified (principal); N17.9 Acute kidney failure, unspecified; D75.89 Other specified diseases of blood and blood-forming organs; E11.65 Type 2 diabetes mellitus with hyperglycemia; I10 Essential (primary) hypertension; Z79.899 Other long term (current) drug therapy

== ENCOUNTER 2021-09-11 08:54 | Emergency (ER) | payer MEDICARE ==
[~2021-09-11] VITALS: Ht 160 cm; Wt 124.7 kg
[2021-09-11] MEDS ORDERED: HYDROCODONE-AC1 EAC1 PO (10:29)
[2021-09-11] MEDS ORDERED: LIDOCAINE HCL5 ML MM (10:32)
[2021-09-11 10:54] LABS: BILIRUBIN Negative (Negative); BLOOD 3+ (Negative); COLOR Orange (Yellow); GLUCOSE 3+ (Negative); KETONE Negative (Negative); LEUKO ESTERASE Negative (Negative); NITRITE Negative (Negative); PH 5.5 (4.5-8.0); SPECIFIC GRAVITY 1.025 (1.001-1.030); UROBILINOGEN 0.2 E.U./dl (0.0-1.0)
[2021-09-11 10:56] LABS: CLARITY Cloudy (Clear)
[2021-09-11 10:58] LABS: RBC TNTC rbc/hpf (0-2)
== END 2021-09-11 10:55 | disposition home or self-care (01) ==
LOC: ED 08:54
PROVIDERS: Emergency Medicine
DX: R31.0 Gross hematuria (principal); N48.89 Other specified disorders of penis; K21.9 Gastro-esophageal reflux disease without esophagitis; I11.0 Hypertensive heart disease with heart failure; I50.9 Heart failure, unspecified; E78.2 Mixed hyperlipidemia; E66.9 Obesity, unspecified; E11.9 Type 2 diabetes mellitus without complications; Z79.899 Other long term (current) drug therapy

== ENCOUNTER 2021-09-20 10:10 | Emergency (ER) | payer MEDICARE ==
[~2021-09-20] VITALS: Ht 160 cm; Wt 119.7 kg
[~2021-09-20 10:10] MED LIST changes: +CEFUROXIME AXE500 MG PO; +DIGOXIN125 MCG PO; +HYDROCODONE-AC1 EAC1 PO; +LAXATIVE5 MG PO; +LIDOCAINE HCL5 ML MM; +TAMSULOSIN HCL0.4 MG PO
[2021-09-20 10:55] LABS: BASO # 0.1 10*3/uL (0.0-0.1); BASO % 0.6 % (0.0-1.0); EOS # 0.4 10*3/uL (0.0-0.4); EOS % 5.3 % (1.0-4.0); HEMATOCRIT 46.8 % (42.0-52.0); LYMPH # 1.4 10*3/uL (1.3-4.4); LYMPH % 16.7 % (27.0-41.0); MEAN CELL VOLUME 92.5 fl (80.0-94.0); MEAN CORPUSCULAR HGB CONC 33.5 g/dl (33.0-37.0); MEAN PLATELET VOLUME 10.1 fl (9.6-12.3); MONO # 0.8 10*3/uL (0.1-1.0); MONO % 9.1 % (3.0-9.0); NEUT # 5.7 10*3/uL (2.3-7.9); NEUT % 67.9 % (47.0-73.0); PLATELET COUNT AUTOMATED 277 10*3/uL (130-400); RED BLOOD COUNT 5.06 10*6/uL (4.50-5.90); RED CELL DISTRI WIDTH 12.6 % (0-14.5); WHITE BLOOD COUNT 8.3 10*3/uL (4.8-10.8)
[2021-09-20 11:06] LABS: BILIRUBIN Negative (Negative); BLOOD 3+ (Negative); CLARITY Turbid (Clear); COLOR Red (Yellow); GLUCOSE 3+ (Negative); KETONE Negative (Negative); LEUKO ESTERASE Negative (Negative); NITRITE Negative (Negative); SPECIFIC GRAVITY >= 1.030 (1.001-1.030); UROBILINOGEN 0.2 E.U./dl (0.0-1.0)
[2021-09-20 11:07] LABS: ACT PARTIAL THROMBO TIME 31.4 SECONDS (20.0-32.1); INTERNATIONAL NORM RATIO 1.1 (2.0-3.5)
[2021-09-20 11:14] LABS: RBC TNTC rbc/hpf (0-2); WBC 41-50 wbc/hpf (0-5)
[2021-09-20 11:18] LABS: ALBUMIN 2.8 gm/dl (3.1-4.5); ALKALINE PHOSPHATASE 92 U/L (45-117); BUN 20 mg/dl (7-24); CHLORIDE 106 mmol/L (98-107); CREATININE 1.07 mg/dL (0.70-1.30); POTASSIUM 3.9 mmol/L (3.5-5.1); SGOT/AST 13 IU/L (3-35); SGPT/ALT 26 U/L (12-78); SODIUM 137 mmol/L (136-145); TOTAL PROTEIN 7.1 gm/dL (6.4-8.2)
== END 2021-09-20 12:56 | disposition home or self-care (01) ==
LOC: ED 10:10
PROVIDERS: Emergency Medicine
DX: N39.0 Urinary tract infection, site not specified (principal)

== ENCOUNTER 2021-09-21 12:47 | Inpatient (IN) | payer MEDICARE ==
[~2021-09-21] VITALS: Ht 160 cm; Wt 136.5 kg
[2021-09-21 12:59] VITALS: BP 146/52
[2021-09-21 15:35] LABS: BASO % 0.4 % (0.0-1.0); EOS # 0.4 10*3/uL (0.0-0.4); EOS % 3.4 % (1.0-4.0); HEMATOCRIT 46.8 % (42.0-52.0); LYMPH # 1.4 10*3/uL (1.3-4.4); MEAN CELL VOLUME 94.5 fl (80.0-94.0); MEAN CORPUSCULAR HGB 30.9 pg (27.0-31.0); MEAN CORPUSCULAR HGB CONC 32.7 g/dl (33.0-37.0); MEAN PLATELET VOLUME 10.2 fl (9.6-12.3); MONO # 0.8 10*3/uL (0.1-1.0); MONO % 7.4 % (3.0-9.0); NEUT # 7.9 10*3/uL (2.3-7.9); NEUT % 75.5 % (47.0-73.0); PLATELET COUNT AUTOMATED 265 10*3/uL (130-400); RED BLOOD COUNT 4.95 10*6/uL (4.50-5.90); RED CELL DISTRI WIDTH 12.8 % (0-14.5); WHITE BLOOD COUNT 10.4 10*3/uL (4.8-10.8)
[2021-09-21 15:46] LABS: INTERNATIONAL NORM RATIO 1.2 (2.0-3.5)
[2021-09-21 15:53] LABS: ALBUMIN 2.6 gm/dl (3.1-4.5); ALKALINE PHOSPHATASE 91 U/L (45-117); BUN 21 mg/dl (7-24); CHLORIDE 105 mmol/L (98-107); CREATININE 1.02 mg/dL (0.70-1.30); LIPASE 98 U/L (73-393); POTASSIUM 4.5 mmol/L (3.5-5.1); SGOT/AST 11 IU/L (3-35); SGPT/ALT 22 U/L (12-78); SODIUM 137 mmol/L (136-145); TOTAL PROTEIN 6.8 gm/dL (6.4-8.2)
[2021-09-21 23:05] VITALS: BP 130/73
[2021-09-21 23:09] LABS: BILIRUBIN 2+ (Negative); BLOOD 1+ (Negative); CLARITY Turbid (Clear); COLOR Red (Yellow); GLUCOSE Negative (Negative); KETONE Trace (Negative); NITRITE Positive (Negative); SPECIFIC GRAVITY 1.015 (1.001-1.030); UROBILINOGEN 0.2 E.U./dl (0.0-1.0)
[2021-09-21 23:17] LABS: LEUKO ESTERASE 3+ (Negative); RBC TNTC rbc/hpf (0-2)
[2021-09-22 01:08] VITALS: BP 142/79
[2021-09-22 06:20] LABS: ALBUMIN 2.5 gm/dl (3.1-4.5); BUN 21 mg/dl (7-24); CHLORIDE 104 mmol/L (98-107); POTASSIUM 4.4 mmol/L (3.5-5.1); SODIUM 137 mmol/L (136-145)
[2021-09-22 06:25] LABS: ALKALINE PHOSPHATASE 86 U/L (45-117); CREATININE 0.94 mg/dL (0.70-1.30); SGOT/AST 12 IU/L (3-35); SGPT/ALT 20 U/L (12-78); TOTAL PROTEIN 6.6 gm/dL (6.4-8.2)
[2021-09-22 06:27] LABS: BASO % 0.4 % (0.0-1.0); EOS # 0.4 10*3/uL (0.0-0.4); EOS % 4.4 % (1.0-4.0); HEMATOCRIT 43.8 % (42.0-52.0); LYMPH # 1.7 10*3/uL (1.3-4.4); LYMPH % 16.9 % (27.0-41.0); MEAN CELL VOLUME 95.6 fl (80.0-94.0); MEAN CORPUSCULAR HGB CONC 32.4 g/dl (33.0-37.0); MEAN PLATELET VOLUME 10.8 fl (9.6-12.3); MONO % 10.3 % (3.0-9.0); NEUT # 6.7 10*3/uL (2.3-7.9); NEUT % 67.7 % (47.0-73.0); PLATELET COUNT AUTOMATED 261 10*3/uL (130-400); RED BLOOD COUNT 4.58 10*6/uL (4.50-5.90); WHITE BLOOD COUNT 9.8 10*3/uL (4.8-10.8)
[2021-09-22 08:00] VITALS: BP 120/71
[2021-09-22 15:02] VITALS: BP 140/70
[2021-09-22 16:00] VITALS: BP 140/70
[2021-09-22 20:00] VITALS: BP 147/88
[2021-09-23] VITALS: BP 113/65
[2021-09-23 05:46] LABS: BUN 20 mg/dl (7-24); CHLORIDE 106 mmol/L (98-107); CREATININE 0.93 mg/dL (0.70-1.30); POTASSIUM 4.2 mmol/L (3.5-5.1); SODIUM 135 mmol/L (136-145)
[2021-09-23 06:31] LABS: BASO % 0.5 % (0.0-1.0); EOS # 0.5 10*3/uL (0.0-0.4); EOS % 5.9 % (1.0-4.0); HEMATOCRIT 45.1 % (42.0-52.0); LYMPH # 1.5 10*3/uL (1.3-4.4); LYMPH % 17.8 % (27.0-41.0); MEAN CELL VOLUME 94.9 fl (80.0-94.0); MEAN CORPUSCULAR HGB 30.7 pg (27.0-31.0); MEAN CORPUSCULAR HGB CONC 32.4 g/dl (33.0-37.0); MEAN PLATELET VOLUME 11.6 fl (9.6-12.3); MONO # 0.8 10*3/uL (0.1-1.0); MONO % 9.1 % (3.0-9.0); NEUT # 5.8 10*3/uL (2.3-7.9); NEUT % 66.5 % (47.0-73.0); PLATELET COUNT AUTOMATED 201 10*3/uL (130-400); RED BLOOD COUNT 4.75 10*6/uL (4.50-5.90); RED CELL DISTRI WIDTH 12.8 % (0-14.5); WHITE BLOOD COUNT 8.7 10*3/uL (4.8-10.8)
[2021-09-23 08:00] VITALS: BP 128/67
[2021-09-23 12:00] VITALS: BP 132/64
[2021-09-23] MEDS ORDERED: LEVOFLOXACIN750 M2 PO (13:34)
== END 2021-09-23 16:21 | disposition home or self-care (01) | DRG 689 ==
LOC: ED 12:47 → EDHOLD 15:33 → 4E 15:33 → EDHOLD 17:54 → 4E 09-22 13:45
PROVIDERS: Emergency Medicine; Internal Medicine; ADMIT Internal Medicine; ATTEND Internal Medicine
DX: N30.01 Acute cystitis with hematuria (principal); E43 Unspecified severe protein-calorie malnutrition; I50.32 Chronic diastolic (congestive) heart failure; I48.20 Chronic atrial fibrillation, unspecified; Z68.42 Body mass index [BMI] 45.0-49.9, adult; E11.65 Type 2 diabetes mellitus with hyperglycemia; E78.2 Mixed hyperlipidemia; Z96.0 Presence of urogenital implants; K21.9 Gastro-esophageal reflux disease without esophagitis; I11.0 Hypertensive heart disease with heart failure; E55.9 Vitamin D deficiency, unspecified; Z79.4 Long term (current) use of insulin; Z82.49 Family history of ischemic heart disease and other diseases of the circulatory system; Z79.899 Other long term (current) drug therapy

== ENCOUNTER 2021-09-27 23:35 | Emergency (ER) | payer MEDICARE ==
[~2021-09-27 23:35] MED LIST changes: +LEVOFLOXACIN750 M2 PO
== END 2021-09-28 02:06 | disposition home or self-care (01) ==
LOC: ED 23:35
DX: T83.098A Other mechanical complication of other urinary catheter, initial encounter (principal); Z79.899 Other long term (current) drug therapy; Y92.89 Other specified places as the place of occurrence of the external cause

== ENCOUNTER 2021-10-03 22:06 | Inpatient (IN) | payer MEDICARE ==
[~2021-10-03] VITALS: Ht 165 cm; Wt 112.3 kg
[2021-10-03 22:34] VITALS: BP 119/67
[2021-10-04 00:47] LABS: BASO % 0.3 % (0.0-1.0); EOS % 0.3 % (1.0-4.0); HEMATOCRIT 46.6 % (42.0-52.0); LYMPH # 0.8 10*3/uL (1.3-4.4); LYMPH % 19.1 % (27.0-41.0); MEAN CELL VOLUME 93.4 fl (80.0-94.0); MEAN CORPUSCULAR HGB 30.7 pg (27.0-31.0); MEAN CORPUSCULAR HGB CONC 32.8 g/dl (33.0-37.0); MEAN PLATELET VOLUME 10.5 fl (9.6-12.3); MONO # 0.6 10*3/uL (0.1-1.0); MONO % 13.8 % (3.0-9.0); NEUT # 2.6 10*3/uL (2.3-7.9); NEUT % 66.2 % (47.0-73.0); PLATELET COUNT AUTOMATED 161 10*3/uL (130-400); RED BLOOD COUNT 4.99 10*6/uL (4.50-5.90); RED CELL DISTRI WIDTH 12.6 % (0-14.5)
[2021-10-04 01:10] LABS: ALBUMIN 2.6 gm/dl (3.1-4.5); ALKALINE PHOSPHATASE 77 U/L (45-117); BUN 22 mg/dl (7-24); CHLORIDE 103 mmol/L (98-107); CREATININE 1.15 mg/dL (0.70-1.30); POTASSIUM 4.4 mmol/L (3.5-5.1); SGOT/AST 39 IU/L (3-35); SGPT/ALT 34 U/L (12-78); SODIUM 136 mmol/L (136-145)
[2021-10-04 01:53] LABS: BILIRUBIN Negative (Negative); BLOOD 2+ (Negative); CLARITY Clear (Clear); COLOR Yellow (Yellow); GLUCOSE Negative (Negative); KETONE 1+ (Negative); LEUKO ESTERASE Negative (Negative); NITRITE Negative (Negative); SPECIFIC GRAVITY 1.025 (1.001-1.030); UROBILINOGEN 0.2 E.U./dl (0.0-1.0)
[2021-10-04 02:09] LABS: BACTERIA 1+; MUCOUS 1+; RBC 21-30 rbc/hpf (0-2)
[2021-10-04 03:41] VITALS: BP 124/62
[2021-10-04 06:29] VITALS: BP 122/58
[2021-10-04 08:10] VITALS: BP 138/83
[2021-10-04] MEDS ORDERED: LASIX40 MG PO (09:18)
[2021-10-04] MEDS ORDERED: POTASSIUM CHLO10 ME5 PO (09:24)
[2021-10-04 14:30] VITALS: BP 113/70
[2021-10-04] MEDS ORDERED: Lopressor25 MG PO (14:46)
[2021-10-04 16:33] VITALS: BP 117/69
[2021-10-04 20:17] VITALS: BP 129/66
[2021-10-05 04:35] LABS: BASO % 0.3 % (0.0-1.0); EOS % 0.8 % (1.0-4.0); HEMATOCRIT 46.3 % (42.0-52.0); LYMPH # 0.8 10*3/uL (1.3-4.4); LYMPH % 20.3 % (27.0-41.0); MEAN CELL VOLUME 95.1 fl (80.0-94.0); MEAN CORPUSCULAR HGB 30.8 pg (27.0-31.0); MEAN CORPUSCULAR HGB CONC 32.4 g/dl (33.0-37.0); MEAN PLATELET VOLUME 11.3 fl (9.6-12.3); MONO # 0.5 10*3/uL (0.1-1.0); MONO % 12.8 % (3.0-9.0); NEUT # 2.5 10*3/uL (2.3-7.9); NEUT % 65.5 % (47.0-73.0); PLATELET COUNT AUTOMATED 154 10*3/uL (130-400); RED BLOOD COUNT 4.87 10*6/uL (4.50-5.90); RED CELL DISTRI WIDTH 13.1 % (0-14.5); WHITE BLOOD COUNT 3.8 10*3/uL (4.8-10.8)
[2021-10-05 04:56] LABS: BUN 24 mg/dl (7-24); CHLORIDE 103 mmol/L (98-107); POTASSIUM 4.6 mmol/L (3.5-5.1); SODIUM 134 mmol/L (136-145)
[2021-10-05 10:54] VITALS: BP 103/62
[2021-10-05 22:30] VITALS: BP 131/83
[2021-10-06 08:00] VITALS: BP 97/67
[2021-10-06 10:34] VITALS: BP 108/60
[2021-10-06 12:00] VITALS: BP 119/59
[2021-10-06 16:00] VITALS: BP 109/68
[2021-10-06 20:00] VITALS: BP 119/57
[2021-10-07 12:00] VITALS: BP 122/82
[2021-10-07 20:00] VITALS: BP 130/70
[2021-10-08] VITALS: BP 118/67
[2021-10-08 06:21] LABS: HEMATOCRIT 45.5 % (42.0-52.0); MEAN CELL VOLUME 90.8 fl (80.0-94.0); MEAN CORPUSCULAR HGB 30.3 pg (27.0-31.0); MEAN CORPUSCULAR HGB CONC 33.4 g/dl (33.0-37.0); MEAN PLATELET VOLUME 11.3 fl (9.6-12.3); PLATELET COUNT AUTOMATED 241 10*3/uL (130-400); RED BLOOD COUNT 5.01 10*6/uL (4.50-5.90); RED CELL DISTRI WIDTH 12.9 % (0-14.5); WHITE BLOOD COUNT 10.4 10*3/uL (4.8-10.8)
[2021-10-08 07:00] LABS: ALBUMIN 2.5 gm/dl (3.1-4.5); BUN 25 mg/dl (7-24); CHLORIDE 106 mmol/L (98-107); POTASSIUM 4.6 mmol/L (3.5-5.1); SGOT/AST 19 IU/L (3-35); SGPT/ALT 27 U/L (12-78); SODIUM 136 mmol/L (136-145); TOTAL PROTEIN 6.4 gm/dL (6.4-8.2)
[2021-10-08 07:01] LABS: ALKALINE PHOSPHATASE 72 U/L (45-117); CPK 29 U/L (39-308)
[2021-10-08 07:54] LABS: PLATELET SUFFICIENCY NORMAL (NORMAL); TOTAL CELLS COUNTED 100 #CELLS
[2021-10-08 08:00] VITALS: BP 107/51
[2021-10-08 12:00] VITALS: BP 112/53
[2021-10-08] MEDS ORDERED: ATORVASTATIN CA20 M1 PO (14:42)
[2021-10-08] MEDS ORDERED: TAMSULOSIN HCL0.4 MG PO (14:42)
[2021-10-08] MEDS ORDERED: DIGOXIN125 MCG PO (14:42)
[2021-10-08] MEDS ORDERED: DOXAZOSIN MESYLA4 MG PO (14:43)
[2021-10-08] MEDS ORDERED: DECADRON6 M1 PO (14:44)
[2021-10-08 16:00] VITALS: BP 126/63
== END 2021-10-08 17:20 | disposition home or self-care (01) | DRG 871 ==
LOC: ED 22:06 → 4E 10-04 06:52 → EDHOLD 10-04 06:52 → 4E 10-05 18:05 → EDBD 10-08 17:20
PROVIDERS: Emergency Medicine; Family Medicine; Internal Medicine; ADMIT Student in an Organized Health Care Education/Training Program; ATTEND Student in an Organized Health Care Education/Training Program
PROC: XW033E5 Introduction of Remdesivir Anti-infective into Peripheral Vein, Percutaneous Approach, New Technology Group 5 (ICD-10-PCS; principal; 2021-10-04)
DX: A41.9 Sepsis, unspecified organism (principal); U07.1 COVID-19; E43 Unspecified severe protein-calorie malnutrition; I50.32 Chronic diastolic (congestive) heart failure; Z68.41 Body mass index [BMI] 40.0-44.9, adult; I48.91 Unspecified atrial fibrillation; N40.0 Benign prostatic hyperplasia without lower urinary tract symptoms; K21.9 Gastro-esophageal reflux disease without esophagitis; E78.2 Mixed hyperlipidemia; I11.0 Hypertensive heart disease with heart failure; I87.2 Venous insufficiency (chronic) (peripheral); E11.65 Type 2 diabetes mellitus with hyperglycemia; E66.01 Morbid (severe) obesity due to excess calories; Z97.8 Presence of other specified devices; Z82.49 Family history of ischemic heart disease and other diseases of the circulatory system; Z83.3 Family history of diabetes mellitus; Z79.899 Other long term (current) drug therapy

== ENCOUNTER 2021-10-11 00:39 | Inpatient (IN) | payer MEDICARE ==
[~2021-10-11] VITALS: Ht 165 cm; Wt 110.7 kg
[~2021-10-11 00:39] MED LIST changes: +ATORVASTATIN CA20 M1 PO; +DECADRON6 M1 PO; +DOXAZOSIN MESYLA4 MG PO; +Lopressor25 MG PO; +POTASSIUM CHLO10 ME5 PO
[2021-10-11 00:57] VITALS: BP 156/72
[2021-10-11 01:20] LABS: BASO % 0.3 % (0.0-1.0); EOS # 0.1 10*3/uL (0.0-0.4); EOS % 0.9 % (1.0-4.0); LYMPH % 12.3 % (27.0-41.0); MEAN CELL VOLUME 90.4 fl (80.0-94.0); MEAN CORPUSCULAR HGB 30.4 pg (27.0-31.0); MEAN CORPUSCULAR HGB CONC 33.7 g/dl (33.0-37.0); MEAN PLATELET VOLUME 10.7 fl (9.6-12.3); MONO # 0.9 10*3/uL (0.1-1.0); MONO % 11.7 % (3.0-9.0); NEUT # 5.8 10*3/uL (2.3-7.9); NEUT % 73.9 % (47.0-73.0); PLATELET COUNT AUTOMATED 306 10*3/uL (130-400); RED BLOOD COUNT 5.42 10*6/uL (4.50-5.90); RED CELL DISTRI WIDTH 12.6 % (0-14.5); WHITE BLOOD COUNT 7.8 10*3/uL (4.8-10.8)
[2021-10-11 01:36] LABS: ALBUMIN 2.8 gm/dl (3.1-4.5); ALKALINE PHOSPHATASE 86 U/L (45-117); BUN 23 mg/dl (7-24); CHLORIDE 106 mmol/L (98-107); CREATININE 1.16 mg/dL (0.70-1.30); POTASSIUM 4.1 mmol/L (3.5-5.1); SGOT/AST 17 IU/L (3-35); SGPT/ALT 29 U/L (12-78); SODIUM 139 mmol/L (136-145); TOTAL PROTEIN 6.7 gm/dL (6.4-8.2)
[2021-10-11 05:52] VITALS: BP 152/68
[2021-10-11 10:14] VITALS: BP 144/86
[2021-10-11 16:49] VITALS: BP 107/58
[2021-10-11 17:30] VITALS: BP 139/98
[2021-10-11 20:00] VITALS: BP 115/73
[2021-10-12] VITALS: BP 109/57
[2021-10-12 07:25] LABS: BASO % 0.1 % (0.0-1.0); EOS % 0.3 % (1.0-4.0); HEMATOCRIT 48.8 % (42.0-52.0); LYMPH # 0.9 10*3/uL (1.3-4.4); LYMPH % 7.5 % (27.0-41.0); MEAN CELL VOLUME 91.6 fl (80.0-94.0); MEAN CORPUSCULAR HGB 30.6 pg (27.0-31.0); MEAN CORPUSCULAR HGB CONC 33.4 g/dl (33.0-37.0); MEAN PLATELET VOLUME 10.4 fl (9.6-12.3); MONO # 0.8 10*3/uL (0.1-1.0); MONO % 7.3 % (3.0-9.0); NEUT # 9.5 10*3/uL (2.3-7.9); NEUT % 84.2 % (47.0-73.0); PLATELET COUNT AUTOMATED 325 10*3/uL (130-400); RED BLOOD COUNT 5.33 10*6/uL (4.50-5.90); RED CELL DISTRI WIDTH 12.9 % (0-14.5); WHITE BLOOD COUNT 11.3 10*3/uL (4.8-10.8)
[2021-10-12 07:43] LABS: ALBUMIN 2.7 gm/dl (3.1-4.5); BUN 23 mg/dl (7-24); CHLORIDE 106 mmol/L (98-107); POTASSIUM 4.3 mmol/L (3.5-5.1); SGOT/AST 13 IU/L (3-35); SGPT/ALT 27 U/L (12-78); SODIUM 136 mmol/L (136-145)
[2021-10-12 07:44] LABS: ALKALINE PHOSPHATASE 84 U/L (45-117); CREATININE 0.82 mg/dL (0.70-1.30)
[2021-10-12 08:00] VITALS: BP 117/53
[2021-10-12 12:00] VITALS: BP 113/72
[2021-10-12 16:00] VITALS: BP 124/69
[2021-10-12 20:00] VITALS: BP 128/76
[2021-10-12 23:46] VITALS: BP 138/71
[2021-10-13 06:27] LABS: BUN 25 mg/dl (7-24); CHLORIDE 102 mmol/L (98-107); CREATININE 1.03 mg/dL (0.70-1.30); POTASSIUM 4.4 mmol/L (3.5-5.1); SODIUM 135 mmol/L (136-145)
[2021-10-13 06:54] LABS: BASO % 0.1 % (0.0-1.0); EOS # 0.1 10*3/uL (0.0-0.4); EOS % 0.6 % (1.0-4.0); HEMATOCRIT 48.6 % (42.0-52.0); LYMPH # 1.2 10*3/uL (1.3-4.4); LYMPH % 9.2 % (27.0-41.0); MEAN CELL VOLUME 92.2 fl (80.0-94.0); MEAN CORPUSCULAR HGB 30.7 pg (27.0-31.0); MEAN CORPUSCULAR HGB CONC 33.3 g/dl (33.0-37.0); MEAN PLATELET VOLUME 10.9 fl (9.6-12.3); MONO # 1.1 10*3/uL (0.1-1.0); MONO % 8.5 % (3.0-9.0); NEUT # 10.7 10*3/uL (2.3-7.9); NEUT % 80.7 % (47.0-73.0); PLATELET COUNT AUTOMATED 337 10*3/uL (130-400); RED BLOOD COUNT 5.27 10*6/uL (4.50-5.90); RED CELL DISTRI WIDTH 12.9 % (0-14.5); WHITE BLOOD COUNT 13.3 10*3/uL (4.8-10.8)
[2021-10-13 08:00] VITALS: BP 121/67
[2021-10-13 12:00] VITALS: BP 117/62
[2021-10-13 15:36] LABS: BILIRUBIN Negative (Negative); BLOOD Negative (Negative); CLARITY Clear (Clear); COLOR Yellow (Yellow); GLUCOSE 3+ (Negative); KETONE Negative (Negative); LEUKO ESTERASE Negative (Negative); NITRITE Negative (Negative); SPECIFIC GRAVITY 1.025 (1.001-1.030); UROBILINOGEN 0.2 E.U./dl (0.0-1.0)
[2021-10-13 15:45] LABS: BACTERIA TRACE; EPITHELIAL CELLS 0-2; MUCOUS 1+; WBC 0-2 wbc/hpf (0-5)
[2021-10-13 16:00] VITALS: BP 119/74
[2021-10-13 20:00] VITALS: BP 123/61
[2021-10-14] VITALS: BP 120/61
[2021-10-14 08:00] VITALS: BP 122/62
[2021-10-14] MEDS ORDERED: Humalog SQ (11:37)
[2021-10-14 12:00] VITALS: BP 108/58
== END 2021-10-14 14:00 | DRG 178 ==
LOC: ED 00:39 → EDHOLD 02:48 → 4E 02:48
PROVIDERS: Hospitalist; Internal Medicine; Registered Nurse; ADMIT Emergency Medicine; ATTEND Emergency Medicine
DX: U07.1 COVID-19 (principal); E44.1 Mild protein-calorie malnutrition; I50.32 Chronic diastolic (congestive) heart failure; I48.20 Chronic atrial fibrillation, unspecified; Z68.41 Body mass index [BMI] 40.0-44.9, adult; H91.3 Deaf nonspeaking, not elsewhere classified; R26.2 Difficulty in walking, not elsewhere classified; E83.41 Hypermagnesemia; M25.552 Pain in left hip; E78.2 Mixed hyperlipidemia; K21.9 Gastro-esophageal reflux disease without esophagitis; I87.2 Venous insufficiency (chronic) (peripheral); E11.65 Type 2 diabetes mellitus with hyperglycemia; Z96.0 Presence of urogenital implants; W19.XXXA Unspecified fall, initial encounter; Y93.89 Activity, other specified; Y92.89 Other specified places as the place of occurrence of the external cause; Y99.8 Other external cause status; Z97.8 Presence of other specified devices

== ENCOUNTER 2021-11-09 19:35 | Emergency (ER) | payer MEDICARE ==
[~2021-11-09] VITALS: Ht 172.7 cm; Wt 136.1 kg
[~2021-11-09 19:35] MED LIST changes: +Humalog SQ
== END 2021-11-09 21:08 | disposition home or self-care (01) ==
LOC: ED 19:35
DX: T83.038A Leakage of other urinary catheter, initial encounter (principal); Y92.89 Other specified places as the place of occurrence of the external cause; Z79.899 Other long term (current) drug therapy

== ENCOUNTER 2021-11-16 20:25 | Emergency (ER) | payer MEDICARE ==
[~2021-11-16] VITALS: Ht 162.5 cm; Wt 119.7 kg
[2021-11-16 21:03] LABS: BILIRUBIN Negative (Negative); BLOOD 3+ (Negative); CLARITY Turbid (Clear); COLOR Yellow (Yellow); GLUCOSE Negative (Negative); KETONE Negative (Negative); LEUKO ESTERASE 3+ (Negative); NITRITE Negative (Negative); PH >= 9.0 (4.5-8.0); UROBILINOGEN 0.2 E.U./dl (0.0-1.0)
[2021-11-16 21:11] LABS: BACTERIA 4+
[2021-11-16 21:13] LABS: TRIP PHOS CRYSTALS 4+
[2021-11-16 21:13] LABS: BASO # 0.1 10*3/uL (0.0-0.1); BASO % 0.6 % (0.0-1.0); EOS # 0.2 10*3/uL (0.0-0.4); EOS % 1.9 % (1.0-4.0); HEMATOCRIT 47.6 % (42.0-52.0); LYMPH # 1.4 10*3/uL (1.3-4.4); LYMPH % 13.1 % (27.0-41.0); MEAN CELL VOLUME 91.4 fl (80.0-94.0); MEAN CORPUSCULAR HGB 30.5 pg (27.0-31.0); MEAN CORPUSCULAR HGB CONC 33.4 g/dl (33.0-37.0); MEAN PLATELET VOLUME 10.5 fl (9.6-12.3); MONO # 0.9 10*3/uL (0.1-1.0); MONO % 8.5 % (3.0-9.0); NEUT # 8.1 10*3/uL (2.3-7.9); NEUT % 75.6 % (47.0-73.0); PLATELET COUNT AUTOMATED 281 10*3/uL (130-400); RED BLOOD COUNT 5.21 10*6/uL (4.50-5.90); RED CELL DISTRI WIDTH 13.2 % (0-14.5); WHITE BLOOD COUNT 10.8 10*3/uL (4.8-10.8)
[2021-11-16 21:21] LABS: ALKALINE PHOSPHATASE 94 U/L (45-117); BUN 24 mg/dl (7-24); CHLORIDE 107 mmol/L (98-107); CREATININE 1.14 mg/dL (0.70-1.30); POTASSIUM 3.7 mmol/L (3.5-5.1); SGOT/AST 17 IU/L (3-35); SGPT/ALT 26 U/L (12-78); SODIUM 136 mmol/L (136-145); TOTAL PROTEIN 7.3 gm/dL (6.4-8.2)
[2021-11-16] MEDS ORDERED: SEPTDS PO (21:33)
== END 2021-11-16 22:00 | disposition home or self-care (01) ==
LOC: ED 20:25
PROVIDERS: Physician Assistant
DX: T83.098A Other mechanical complication of other urinary catheter, initial encounter (principal); N39.0 Urinary tract infection, site not specified; Z79.899 Other long term (current) drug therapy; Y92.89 Other specified places as the place of occurrence of the external cause

== ENCOUNTER 2021-12-25 21:18 | Inpatient (IN) | payer MEDICARE ==
[~2021-12-25] VITALS: Ht 154.9 cm; Wt 117.3 kg
[2021-12-25 21:31] VITALS: BP 137/85
[2021-12-25 22:47] LABS: BILIRUBIN Negative (Negative); BLOOD 2+ (Negative); CLARITY Cloudy (Clear); COLOR Yellow (Yellow); GLUCOSE Trace (Negative); KETONE 2+ (Negative); LEUKO ESTERASE 3+ (Negative); NITRITE Negative (Negative); PH 5.5 (4.5-8.0)
[2021-12-25 23:07] LABS: BASO % 0.3 % (0.0-1.0); EOS % 0.1 % (1.0-4.0); HEMATOCRIT 48.6 % (42.0-52.0); LYMPH # 0.7 10*3/uL (1.3-4.4); LYMPH % 5.9 % (27.0-41.0); MEAN CORPUSCULAR HGB 30.5 pg (27.0-31.0); MEAN CORPUSCULAR HGB CONC 33.1 g/dl (33.0-37.0); MEAN PLATELET VOLUME 10.3 fl (9.6-12.3); MONO # 1.2 10*3/uL (0.1-1.0); NEUT % 83.4 % (47.0-73.0); PLATELET COUNT AUTOMATED 221 10*3/uL (130-400); RED BLOOD COUNT 5.28 10*6/uL (4.50-5.90); RED CELL DISTRI WIDTH 13.4 % (0-14.5); WHITE BLOOD COUNT 11.9 10*3/uL (4.8-10.8)
[2021-12-25 23:23] LABS: BACTERIA 3+; RBC 31-40 rbc/hpf (0-2); WBC 51-100 wbc/hpf (0-5)
[2021-12-25 23:30] LABS: ALKALINE PHOSPHATASE 90 U/L (45-117); BUN 23 mg/dl (7-24); CHLORIDE 99 mmol/L (98-107); CREATININE 1.33 mg/dL (0.70-1.30); POTASSIUM 4.3 mmol/L (3.5-5.1); SGOT/AST 14 IU/L (3-35); SGPT/ALT 17 U/L (12-78); SODIUM 130 mmol/L (136-145); TOTAL PROTEIN 7.8 gm/dL (6.4-8.2)
[2021-12-26] VITALS (8 sets, daily range): BP systolic 94–140; BP diastolic 56–87
[2021-12-26 06:04] LABS: CHLORIDE 102 mmol/L (98-107); POTASSIUM 3.7 mmol/L (3.5-5.1); SODIUM 134 mmol/L (136-145)
[2021-12-26 06:10] LABS: ALKALINE PHOSPHATASE 81 U/L (45-117); BUN 23 mg/dl (7-24); CHOLESTEROL 118 mg/dL (<200); SGOT/AST 13 IU/L (3-35); SGPT/ALT 16 U/L (12-78); TOTAL PROTEIN 7.2 gm/dL (6.4-8.2); TRIGLYCERIDES 75 mg/dl (<150)
[2021-12-26 06:11] LABS: LDL CHOLESTEROL 67 mg/dL (9-159)
[2021-12-26 06:13] LABS: BASO % 0.3 % (0.0-1.0); HEMATOCRIT 45.9 % (42.0-52.0); LYMPH # 0.9 10*3/uL (1.3-4.4); LYMPH % 8.7 % (27.0-41.0); MEAN CELL VOLUME 91.6 fl (80.0-94.0); MEAN CORPUSCULAR HGB 30.1 pg (27.0-31.0); MEAN CORPUSCULAR HGB CONC 32.9 g/dl (33.0-37.0); MEAN PLATELET VOLUME 10.8 fl (9.6-12.3); MONO # 1.2 10*3/uL (0.1-1.0); MONO % 11.9 % (3.0-9.0); NEUT # 7.8 10*3/uL (2.3-7.9); NEUT % 78.7 % (47.0-73.0); PLATELET COUNT AUTOMATED 238 10*3/uL (130-400); RED BLOOD COUNT 5.01 10*6/uL (4.50-5.90); RED CELL DISTRI WIDTH 13.4 % (0-14.5); WHITE BLOOD COUNT 9.9 10*3/uL (4.8-10.8)
[2021-12-26 06:19] LABS: ACT PARTIAL THROMBO TIME 33.4 SECONDS (20.0-32.1); INTERNATIONAL NORM RATIO 1.1 (2.0-3.5)
[2021-12-26 09:48] LABS: VITAMIN D, 25-HYDROXY 17.5 ng/mL (30-100)
[2021-12-27 06:15] LABS: BUN 19 mg/dl (7-24); CHLORIDE 101 mmol/L (98-107); CREATININE 1.06 mg/dL (0.70-1.30); POTASSIUM 3.7 mmol/L (3.5-5.1); SGOT/AST 15 IU/L (3-35); SGPT/ALT 19 U/L (12-78); SODIUM 132 mmol/L (136-145)
[2021-12-27 06:17] LABS: ALKALINE PHOSPHATASE 82 U/L (45-117); TOTAL PROTEIN 7.1 gm/dL (6.4-8.2)
[2021-12-27 06:36] LABS: BASO % 0.3 % (0.0-1.0); EOS % 0.5 % (1.0-4.0); HEMATOCRIT 45.3 % (42.0-52.0); LYMPH # 0.7 10*3/uL (1.3-4.4); LYMPH % 8.8 % (27.0-41.0); MEAN CELL VOLUME 91.5 fl (80.0-94.0); MEAN CORPUSCULAR HGB 30.1 pg (27.0-31.0); MEAN CORPUSCULAR HGB CONC 32.9 g/dl (33.0-37.0); MONO # 1.1 10*3/uL (0.1-1.0); MONO % 14.5 % (3.0-9.0); NEUT % 75.6 % (47.0-73.0); PLATELET COUNT AUTOMATED 209 10*3/uL (130-400); RED BLOOD COUNT 4.95 10*6/uL (4.50-5.90); RED CELL DISTRI WIDTH 13.3 % (0-14.5); WHITE BLOOD COUNT 7.9 10*3/uL (4.8-10.8)
[2021-12-27 08:00] VITALS: BP 102/65
[2021-12-27 12:00] VITALS: BP 102/74
[2021-12-27 13:35] VITALS: BP 130/60
[2021-12-27 16:00] VITALS: BP 127/87
[2021-12-27 20:00] VITALS: BP 125/76
[2021-12-28] VITALS: BP 122/71
[2021-12-28 06:12] LABS: BASO % 0.3 % (0.0-1.0); EOS # 0.2 10*3/uL (0.0-0.4); EOS % 2.7 % (1.0-4.0); HEMATOCRIT 44.8 % (42.0-52.0); LYMPH % 14.8 % (27.0-41.0); MEAN CELL VOLUME 90.7 fl (80.0-94.0); MEAN CORPUSCULAR HGB 30.2 pg (27.0-31.0); MEAN CORPUSCULAR HGB CONC 33.3 g/dl (33.0-37.0); MEAN PLATELET VOLUME 10.8 fl (9.6-12.3); MONO % 14.8 % (3.0-9.0); NEUT # 4.4 10*3/uL (2.3-7.9); NEUT % 67.1 % (47.0-73.0); PLATELET COUNT AUTOMATED 206 10*3/uL (130-400); RED BLOOD COUNT 4.94 10*6/uL (4.50-5.90); RED CELL DISTRI WIDTH 13.2 % (0-14.5); WHITE BLOOD COUNT 6.6 10*3/uL (4.8-10.8)
[2021-12-28 06:18] LABS: BUN 19 mg/dl (7-24); CHLORIDE 103 mmol/L (98-107); CREATININE 0.91 mg/dL (0.70-1.30); POTASSIUM 3.7 mmol/L (3.5-5.1); SODIUM 134 mmol/L (136-145)
[2021-12-28 08:00] VITALS: BP 111/58
[2021-12-28 11:35] VITALS: BP 105/69
[2021-12-28 16:00] VITALS: BP 129/85
[2021-12-28 20:00] VITALS: BP 124/48
[2021-12-29] VITALS: BP 131/78
[2021-12-29 05:51] LABS: BUN 20 mg/dl (7-24); CHLORIDE 104 mmol/L (98-107); CREATININE 0.92 mg/dL (0.70-1.30); SODIUM 138 mmol/L (136-145)
[2021-12-29 06:29] LABS: BASO % 0.5 % (0.0-1.0); EOS # 0.3 10*3/uL (0.0-0.4); EOS % 3.1 % (1.0-4.0); HEMATOCRIT 45.7 % (42.0-52.0); LYMPH # 1.2 10*3/uL (1.3-4.4); LYMPH % 15.1 % (27.0-41.0); MEAN CELL VOLUME 91.8 fl (80.0-94.0); MEAN CORPUSCULAR HGB 29.9 pg (27.0-31.0); MEAN CORPUSCULAR HGB CONC 32.6 g/dl (33.0-37.0); MEAN PLATELET VOLUME 11.3 fl (9.6-12.3); MONO # 0.8 10*3/uL (0.1-1.0); NEUT # 5.7 10*3/uL (2.3-7.9); NEUT % 70.9 % (47.0-73.0); PLATELET COUNT AUTOMATED 238 10*3/uL (130-400); RED BLOOD COUNT 4.98 10*6/uL (4.50-5.90); RED CELL DISTRI WIDTH 13.2 % (0-14.5)
[2021-12-29 06:38] LABS: POTASSIUM 4.7 mmol/L (3.5-5.1)
[2021-12-29 08:00] VITALS: BP 128/78
[2021-12-29 12:00] VITALS: BP 116/68
[2021-12-29 16:00] VITALS: BP 100/53
[2021-12-29 20:00] VITALS: BP 128/74
[2021-12-30] VITALS: BP 122/71
[2021-12-30 08:00] VITALS: BP 123/64
[2021-12-30] MEDS ORDERED: CIPRO500 MG PO (11:09)
[2021-12-30] MEDS ORDERED: VITAMIN D3125 MC1 PO (11:09)
[2021-12-30 12:15] VITALS: BP 126/70
== END 2021-12-30 15:11 | DRG 698 ==
LOC: ED 21:18 → EDHOLD 12-26 02:19 → 5E 12-26 02:19
PROVIDERS: Emergency Medicine; Family Medicine; Hospitalist; ADMIT Student in an Organized Health Care Education/Training Program; ATTEND Student in an Organized Health Care Education/Training Program
PROC: 0T2BX0Z Change Drainage Device in Bladder, External Approach (ICD-10-PCS; principal; 2021-12-26)
PROC: 0HBRXZZ Excision of Toe Nail, External Approach (ICD-10-PCS; 2021-12-27)
PROC: 0HBRXZZ Excision of Toe Nail, External Approach (ICD-10-PCS; 2021-12-27)
PROC: 0HBRXZZ Excision of Toe Nail, External Approach (ICD-10-PCS; 2021-12-27)
PROC: 0HBRXZZ Excision of Toe Nail, External Approach (ICD-10-PCS; 2021-12-27)
PROC: 0HBRXZZ Excision of Toe Nail, External Approach (ICD-10-PCS; 2021-12-27)
PROC: 0HBRXZZ Excision of Toe Nail, External Approach (ICD-10-PCS; 2021-12-27)
PROC: 0HBRXZZ Excision of Toe Nail, External Approach (ICD-10-PCS; 2021-12-27)
PROC: 0HBRXZZ Excision of Toe Nail, External Approach (ICD-10-PCS; 2021-12-27)
PROC: 0HBRXZZ Excision of Toe Nail, External Approach (ICD-10-PCS; 2021-12-27)
PROC: 0HBRXZZ Excision of Toe Nail, External Approach (ICD-10-PCS; 2021-12-27)
DX: T83.511A Infection and inflammatory reaction due to indwelling urethral catheter, initial encounter (principal); N17.0 Acute kidney failure with tubular necrosis; A41.9 Sepsis, unspecified organism; E87.1 Hypo-osmolality and hyponatremia; E44.0 Moderate protein-calorie malnutrition; I50.32 Chronic diastolic (congestive) heart failure; Z68.42 Body mass index [BMI] 45.0-49.9, adult; I48.20 Chronic atrial fibrillation, unspecified; N39.0 Urinary tract infection, site not specified; H91.3 Deaf nonspeaking, not elsewhere classified; Y83.8 Other surgical procedures as the cause of abnormal reaction of the patient, or of later complication, without mention of misadventure at the time of the procedure; I87.2 Venous insufficiency (chronic) (peripheral); Z20.822 Contact with and (suspected) exposure to COVID-19; W19.XXXA Unspecified fall, initial encounter; E11.65 Type 2 diabetes mellitus with hyperglycemia; K21.9 Gastro-esophageal reflux disease without esophagitis; B96.1 Klebsiella pneumoniae [K. pneumoniae] as the cause of diseases classified elsewhere; S76.012A Strain of muscle, fascia and tendon of left hip, initial encounter; I11.0 Hypertensive heart disease with heart failure; Z96.0 Presence of urogenital implants; E55.9 Vitamin D deficiency, unspecified; N40.0 Benign prostatic hyperplasia without lower urinary tract symptoms; B35.1 Tinea unguium; E11.42 Type 2 diabetes mellitus with diabetic polyneuropathy; I87.8 Other specified disorders of veins; Y93.89 Activity, other specified; Y92.89 Other specified places as the place of occurrence of the external cause; Y99.8 Other external cause status; Z82.49 Family history of ischemic heart disease and other diseases of the circulatory system; Z83.3 Family history of diabetes mellitus

== ENCOUNTER 2022-01-20 19:49 | Emergency (ER) | payer MEDICARE ==
[~2022-01-20] VITALS: Ht 172.7 cm; Wt 113.4 kg
[~2022-01-20 19:49] MED LIST changes: +VITAMIN D3125 MC1 PO
== END 2022-01-20 20:37 | disposition home or self-care (01) ==
LOC: ED 19:49
DX: T83.038A Leakage of other urinary catheter, initial encounter (principal); Z79.899 Other long term (current) drug therapy

== ENCOUNTER → 2022-02-02 | Outpatient (CLI) | payer MEDICARE ==
[2022-02-02 17:34] LABS: BASO % 0.4 % (0.0-1.0); EOS # 0.3 10*3/uL (0.0-0.4); EOS % 2.6 % (1.0-4.0); HEMATOCRIT 48.2 % (42.0-52.0); LYMPH # 1.4 10*3/uL (1.3-4.4); MEAN CELL VOLUME 88.3 fl (80.0-94.0); MEAN CORPUSCULAR HGB 29.9 pg (27.0-31.0); MEAN CORPUSCULAR HGB CONC 33.8 g/dl (33.0-37.0); MEAN PLATELET VOLUME 10.5 fl (9.6-12.3); MONO # 0.7 10*3/uL (0.1-1.0); MONO % 7.4 % (3.0-9.0); NEUT # 7.3 10*3/uL (2.3-7.9); NEUT % 75.2 % (47.0-73.0); PLATELET COUNT AUTOMATED 294 10*3/uL (130-400); RED BLOOD COUNT 5.46 10*6/uL (4.50-5.90); RED CELL DISTRI WIDTH 13.3 % (0-14.5); WHITE BLOOD COUNT 9.7 10*3/uL (4.8-10.8)
[2022-02-02 18:11] LABS: ALKALINE PHOSPHATASE 111 U/L (45-117); BUN 23 mg/dl (7-24); CHLORIDE 103 mmol/L (98-107); CREATININE 1.33 mg/dL (0.70-1.30); POTASSIUM 3.7 mmol/L (3.5-5.1); SGOT/AST 13 IU/L (3-35); SGPT/ALT 21 U/L (12-78); SODIUM 134 mmol/L (136-145); TOTAL PROTEIN 8.1 gm/dL (6.4-8.2)
[2022-02-02 18:30] LABS: VITAMIN D, 25-HYDROXY 39.4 ng/mL (30-100)
== END | disposition home or self-care (01) ==
LOC: LAB 16:59
PROVIDERS: ATTEND Family Medicine
DX: I48.20 Chronic atrial fibrillation, unspecified (principal); N40.1 Benign prostatic hyperplasia with lower urinary tract symptoms; E78.2 Mixed hyperlipidemia; E11.9 Type 2 diabetes mellitus without complications; E53.8 Deficiency of other specified B group vitamins; R29.6 Repeated falls; I10 Essential (primary) hypertension; E55.9 Vitamin D deficiency, unspecified; I87.2 Venous insufficiency (chronic) (peripheral); I48.0 Paroxysmal atrial fibrillation; H91.3 Deaf nonspeaking, not elsewhere classified; R60.0 Localized edema; R06.02 Shortness of breath; Z12.5 Encounter for screening for malignant neoplasm of prostate

== ENCOUNTER → 2022-04-21 | Outpatient (CLI) | payer MEDICARE ==
[~2022-04-21] MED LIST changes: +CEFTRIAXONE2 GM IJ; +METFORMIN HYD1000 MG PO
== END | disposition home or self-care (01) ==
LOC: CT 04-14 08:00 → NM 04-14 10:00 → CT 07:52
PROVIDERS: ATTEND Urology
DX: J44.9 Chronic obstructive pulmonary disease, unspecified (principal); C61 Malignant neoplasm of prostate; R91.8 Other nonspecific abnormal finding of lung field; M77.32 Calcaneal spur, left foot

== ENCOUNTER → 2022-09-26 | Outpatient (CLI) | payer MEDICARE | END | disposition home or self-care (01) | LOC: US 01:27 | PROVIDERS: ATTEND Urology | DX: N13.39 Other hydronephrosis (principal) ==

== ENCOUNTER 2023-03-31 15:31 | Emergency (ER) | payer MEDICARE ==
[~2023-03-31] VITALS: Wt 116.6 kg
[2023-03-31 16:08] LABS: BASO % 0.3 % (0.0-1.0); EOS # 0.3 10*3/uL (0.0-0.4); EOS % 2.9 % (1.0-4.0); HEMATOCRIT 45.9 % (42.0-52.0); LYMPH # 2.4 10*3/uL (1.3-4.4); LYMPH % 20.6 % (27.0-41.0); MEAN CELL VOLUME 87.3 fl (80.0-94.0); MEAN CORPUSCULAR HGB 28.9 pg (27.0-31.0); MEAN CORPUSCULAR HGB CONC 33.1 g/dl (33.0-37.0); MEAN PLATELET VOLUME 10.2 fl (9.6-12.3); MONO % 8.7 % (3.0-9.0); NEUT # 7.8 10*3/uL (2.3-7.9); NEUT % 67.2 % (47.0-73.0); PLATELET COUNT AUTOMATED 345 10*3/uL (130-400); RED BLOOD COUNT 5.26 10*6/uL (4.50-5.90); RED CELL DISTRI WIDTH 14.4 % (0-14.5); WHITE BLOOD COUNT 11.6 10*3/uL (4.8-10.8)
[2023-03-31 16:30] LABS: POTASSIUM 2.9 mmol/L (3.4-5.1); TOTAL PROTEIN 7.8 gm/dL (6.0-8.0)
[2023-03-31] MEDS ORDERED: CIPRO500 MG PO (18:09)
== END 2023-03-31 19:48 ==
LOC: ED 15:31
PROVIDERS: Emergency Medicine
DX: N39.0 Urinary tract infection, site not specified (principal); R31.9 Hematuria, unspecified; I25.10 Atherosclerotic heart disease of native coronary artery without angina pectoris; E11.9 Type 2 diabetes mellitus without complications; I10 Essential (primary) hypertension; I48.91 Unspecified atrial fibrillation; Z98.890 Other specified postprocedural states

== ENCOUNTER 2023-05-27 17:52 | Inpatient (IN) | payer MEDICARE ==
[~2023-05-27] VITALS: Ht 165.1 cm; Wt 118.9 kg
[2023-05-27 18:05] VITALS: BP 127/78; BP 140/78
[2023-05-27 18:21] LABS: BASO % 0.3 % (0.0-1.0); BILIRUBIN Negative (Negative); BLOOD 3+ (Negative); CLARITY Turbid (Clear); GLUCOSE Negative (Negative); HEMATOCRIT 42.1 % (42.0-52.0); KETONE Negative (Negative); LEUKO ESTERASE 3+ (Negative); LYMPH # 0.7 10*3/uL (1.3-4.4); LYMPH % 4.5 % (27.0-41.0); MEAN CELL VOLUME 87.9 fl (80.0-94.0); MEAN PLATELET VOLUME 10.3 fl (9.6-12.3); MONO # 1.2 10*3/uL (0.1-1.0); MONO % 7.8 % (3.0-9.0); NEUT # 13.8 10*3/uL (2.3-7.9); NITRITE Negative (Negative); PLATELET COUNT AUTOMATED 289 10*3/uL (130-400); RED BLOOD COUNT 4.79 10*6/uL (4.50-5.90); RED CELL DISTRI WIDTH 13.6 % (0-14.5); WHITE BLOOD COUNT 15.9 10*3/uL (4.8-10.8)
[2023-05-27 18:23] LABS: PH 8.5 (4.5-8.0)
[2023-05-27 18:34] LABS: BACTERIA 1+; COLOR Red (Yellow); MUCOUS 1+; RBC TNTC rbc/hpf (0-2)
[2023-05-27 18:49] LABS: POTASSIUM 3.4 mmol/L (3.4-5.1); TOTAL PROTEIN 7.3 gm/dL (6.0-8.0)
[2023-05-27] MEDS ORDERED: PERCOCET 5-3251 EACH PO (20:16)
[2023-05-27] MEDS ORDERED: CRANBERRY450 M2 PO (20:16)
[2023-05-27] MEDS ORDERED: POTASSIUM CHLO20 ME3 PO (20:17)
[2023-05-27] MEDS ORDERED: ALLERGY MEDICAT25 MG PO (20:18)
[2023-05-27] MEDS ORDERED: [UNRECOGNIZED DRUG - OTHER] (20:18)
[2023-05-27] MEDS ORDERED: LASIX20 MG PO (20:18)
[2023-05-27] MEDS ORDERED: XARELTO15 M1 PO (20:19)
[2023-05-27] MEDS ORDERED: CASODEX50 MG PO (20:19)
[2023-05-27] MEDS ORDERED: METOPROLOL TART50 M1 PO (20:20)
[2023-05-27] MEDS ORDERED: HUMALOG100 UNIT/1 SQ (20:21)
[2023-05-27] MEDS ORDERED: AMMONIUM LACTA227 GM T (20:21)
[2023-05-27] MEDS ORDERED: LEVEMIR100 UNIT/1 SC ×2 (20:22→20:23)
[2023-05-27 23:54] VITALS: BP 125/55
[2023-05-28] VITALS (7 sets, daily range): BP systolic 98–145; BP diastolic 59–88
[2023-05-28 06:18] LABS: BASO % 0.2 % (0.0-1.0); LYMPH # 1.1 10*3/uL (1.3-4.4); LYMPH % 8.3 % (27.0-41.0); MEAN CELL VOLUME 89.9 fl (80.0-94.0); MEAN CORPUSCULAR HGB 28.7 pg (27.0-31.0); MEAN PLATELET VOLUME 10.4 fl (9.6-12.3); MONO # 1.1 10*3/uL (0.1-1.0); MONO % 8.1 % (3.0-9.0); NEUT # 10.7 10*3/uL (2.3-7.9); NEUT % 82.9 % (47.0-73.0); PLATELET COUNT AUTOMATED 252 10*3/uL (130-400); RED BLOOD COUNT 4.56 10*6/uL (4.50-5.90); RED CELL DISTRI WIDTH 13.9 % (0-14.5); WHITE BLOOD COUNT 12.9 10*3/uL (4.8-10.8)
[2023-05-28 06:38] LABS: FREE T4 0.95 ng/dl (0.89-1.76); POTASSIUM 3.5 mmol/L (3.4-5.1); TOTAL PROTEIN 6.8 gm/dL (6.0-8.0)
[2023-05-28 08:20] LABS: VITAMIN D, 25-HYDROXY 25.6 ng/mL (30-100)
[2023-05-29] VITALS: BP 110/67
[2023-05-29 06:22] LABS: BASO % 0.3 % (0.0-1.0); EOS # 0.2 10*3/uL (0.0-0.4); EOS % 1.5 % (1.0-4.0); HEMATOCRIT 40.4 % (42.0-52.0); LYMPH # 1.2 10*3/uL (1.3-4.4); LYMPH % 10.1 % (27.0-41.0); MEAN CORPUSCULAR HGB 29.2 pg (27.0-31.0); MEAN CORPUSCULAR HGB CONC 31.7 g/dl (33.0-37.0); MEAN PLATELET VOLUME 10.9 fl (9.6-12.3); MONO % 8.3 % (3.0-9.0); NEUT # 9.8 10*3/uL (2.3-7.9); NEUT % 79.4 % (47.0-73.0); PLATELET COUNT AUTOMATED 263 10*3/uL (130-400); RED BLOOD COUNT 4.39 10*6/uL (4.50-5.90); RED CELL DISTRI WIDTH 13.9 % (0-14.5); WHITE BLOOD COUNT 12.3 10*3/uL (4.8-10.8)
[2023-05-29 07:16] LABS: POTASSIUM 3.4 mmol/L (3.4-5.1)
[2023-05-29 08:00] VITALS: BP 116/61
[2023-05-29 12:00] VITALS: BP 121/59
== END 2023-05-29 14:20 | disposition short-term general hospital (02) | DRG 871 ==
LOC: ED 17:52 → 4E 20:52 → EDHOLD 20:52 → 4E 05-28 14:51
PROVIDERS: Internal Medicine; Nurse Practitioner; Student in an Organized Health Care Education/Training Program; ADMIT Internal Medicine; ATTEND Internal Medicine
DX: A41.9 Sepsis, unspecified organism (principal); E43 Unspecified severe protein-calorie malnutrition; N17.0 Acute kidney failure with tubular necrosis; I13.0 Hypertensive heart and chronic kidney disease with heart failure and stage 1 through stage 4 chronic kidney disease, or unspecified chronic kidney disease; I48.20 Chronic atrial fibrillation, unspecified; I50.32 Chronic diastolic (congestive) heart failure; E87.1 Hypo-osmolality and hyponatremia; Z16.24 Resistance to multiple antibiotics; N13.6 Pyonephrosis; N39.0 Urinary tract infection, site not specified; R65.20 Severe sepsis without septic shock; E11.22 Type 2 diabetes mellitus with diabetic chronic kidney disease; N18.30 Chronic kidney disease, stage 3 unspecified; W06.XXXA Fall from bed, initial encounter; E78.2 Mixed hyperlipidemia; K21.9 Gastro-esophageal reflux disease without esophagitis; E11.65 Type 2 diabetes mellitus with hyperglycemia; E55.9 Vitamin D deficiency, unspecified; R31.9 Hematuria, unspecified; D64.9 Anemia, unspecified; I87.2 Venous insufficiency (chronic) (peripheral); B96.89 Other specified bacterial agents as the cause of diseases classified elsewhere; H91.3 Deaf nonspeaking, not elsewhere classified; N40.0 Benign prostatic hyperplasia without lower urinary tract symptoms; Z04.3 Encounter for examination and observation following other accident; Y93.89 Activity, other specified; Y92.122 Bedroom in nursing home as the place of occurrence of the external cause; Y99.8 Other external cause status; Z79.899 Other long term (current) drug therapy; Z85.46 Personal history of malignant neoplasm of prostate; Z82.49 Family history of ischemic heart disease and other diseases of the circulatory system; Z83.3 Family history of diabetes mellitus; Z80.9 Family history of malignant neoplasm, unspecified; Y84.6 Urinary catheterization as the cause of abnormal reaction of the patient, or of later complication, without mention of misadventure at the time of the procedure; Y92.89 Other specified places as the place of occurrence of the external cause; Z86.14 Personal history of Methicillin resistant Staphylococcus aureus infection; Z86.19 Personal history of other infectious and parasitic diseases

== ENCOUNTER 2023-09-22 09:15 | Emergency (ER) | payer MEDICARE ==
[~2023-09-22] VITALS: Ht 167.6 cm; Wt 95.3 kg
[~2023-09-22 09:15] MED LIST changes: +ALLERGY MEDICAT25 MG PO; +CASODEX50 MG PO; +CRANBERRY450 M2 PO; +HUMALOG100 UNIT/1 SQ; +LEVEMIR100 UNIT/1 SC; +PERCOCET 5-3251 EACH PO; +POTASSIUM CHLO20 ME3 PO; +XARELTO15 M1 PO; +[UNRECOGNIZED DRUG - OTHER]
[2023-09-22 10:49] LABS: BILIRUBIN Negative (Negative); BLOOD 3+ (Negative); GLUCOSE Negative (Negative); KETONE Negative (Negative); LEUKO ESTERASE 3+ (Negative); NITRITE Negative (Negative)
[2023-09-22 10:53] LABS: CLARITY Turbid (Clear); COLOR Red (Yellow)
[2023-09-22 10:55] LABS: RBC TNTC rbc/hpf (0-2)
== END 2023-09-22 11:43 | disposition home or self-care (01) ==
LOC: ED 09:15
PROVIDERS: Emergency Medicine
DX: R31.9 Hematuria, unspecified (principal); E11.9 Type 2 diabetes mellitus without complications; I10 Essential (primary) hypertension; I48.91 Unspecified atrial fibrillation; I25.10 Atherosclerotic heart disease of native coronary artery without angina pectoris; Z98.890 Other specified postprocedural states

== ENCOUNTER 2023-10-06 01:58 | Emergency (ER) | payer MEDICARE ==
[~2023-10-06] VITALS: Wt 110.7 kg
[2023-10-06 02:28] LABS: HEMATOCRIT 41.3 % (42.0-52.0); MEAN CORPUSCULAR HGB 27.1 pg (27.0-31.0); MEAN CORPUSCULAR HGB CONC 29.8 g/dl (33.0-37.0); MEAN PLATELET VOLUME 9.8 fl (9.6-12.3); PLATELET COUNT AUTOMATED 415 10*3/uL (130-400); RED BLOOD COUNT 4.54 10*6/uL (4.50-5.90); RED CELL DISTRI WIDTH 15.7 % (0-14.5); WHITE BLOOD COUNT 17.3 10*3/uL (4.8-10.8)
[2023-10-06 02:29] LABS: MANUAL DIFF REFLEX YES
[2023-10-06] MEDS ORDERED: ACETAMINOPHEN325 M2 PO (02:44)
[2023-10-06 02:45] LABS: TOTAL PROTEIN 7.9 gm/dL (6.0-8.0)
[2023-10-06] MEDS ORDERED: CASODEX50 MG PO (02:45)
[2023-10-06] MEDS ORDERED: CELEXA10 MG PO (02:45)
[2023-10-06] MEDS ORDERED: COLISTIMETHATE150 M1 IV (02:46)
[2023-10-06] MEDS ORDERED: HUMALOG100 UNIT/1 SC (02:47)
[2023-10-06] MEDS ORDERED: LANTUS SOL100 UNIT/1 SC ×2 (02:48)
[2023-10-06 02:51] LABS: PLATELET SUFFICIENCY HIGH (NORMAL); TOTAL CELLS COUNTED 100 #CELLS
[2023-10-06 02:57] LABS: ACT PARTIAL THROMBO TIME 52.3 SECONDS (20.0-32.1)
[2023-10-06 03:47] LABS: BILIRUBIN Negative (Negative); BLOOD 3+ (Negative); CLARITY Turbid (Clear); COLOR Orange (Yellow); GLUCOSE 1+ (Negative); KETONE Trace (Negative); LEUKO ESTERASE 2+ (Negative); NITRITE Negative (Negative); SPECIFIC GRAVITY 1.015 (1.001-1.030); UROBILINOGEN 0.2 E.U./dl (0.0-1.0)
[2023-10-06 04:17] LABS: RBC TNTC rbc/hpf (0-2)
[2023-10-06 04:18] LABS: BACTERIA 1+; COARSE GRANULAR CAST 21-30; WBC 16-20 wbc/hpf (0-5)
== END 2023-10-06 04:34 | disposition short-term general hospital (02) ==
LOC: ED 01:59
PROVIDERS: Internal Medicine
DX: I46.9 Cardiac arrest, cause unspecified (principal); I50.9 Heart failure, unspecified; A41.9 Sepsis, unspecified organism; R65.21 Severe sepsis with septic shock; N17.9 Acute kidney failure, unspecified; N39.0 Urinary tract infection, site not specified; I25.10 Atherosclerotic heart disease of native coronary artery without angina pectoris; I48.91 Unspecified atrial fibrillation; Z98.890 Other specified postprocedural states

== ENCOUNTER 2023-12-04 00:51 | Emergency (ER) | payer MEDICARE ==
[~2023-12-04 00:51] MED LIST changes: +ACETAMINOPHEN325 M2 PO; +CELEXA10 MG PO; +COLISTIMETHATE150 M1 IV; +ELIQUIS5 M1 PO; +GOOD SENSE ACID20 MG PO; +HUMALOG100 UNIT/1 SC; +LANTUS SOL100 UNIT/1 SC; +LIDODERM1 EACH T; +MELATONIN5 M1 PO; +SENNA8.6 MG PO; +SODIUM BICARBO650 MG PO; +VISTARIL25 MG PO
[2023-12-04] MEDS ORDERED: CEPHALEXIN500 M1 PO (05:14)
== END 2023-12-04 06:00 ==
LOC: ED 00:51
DX: S91.201A Unspecified open wound of right great toe with damage to nail, initial encounter (principal); M25.552 Pain in left hip; I25.10 Atherosclerotic heart disease of native coronary artery without angina pectoris; E11.9 Type 2 diabetes mellitus without complications; I10 Essential (primary) hypertension; I48.91 Unspecified atrial fibrillation; K21.9 Gastro-esophageal reflux disease without esophagitis; Z98.890 Other specified postprocedural states; W19.XXXA Unspecified fall, initial encounter; Y93.89 Activity, other specified; Y92.129 Unspecified place in nursing home as the place of occurrence of the external cause; Y99.8 Other external cause status

== ENCOUNTER 2023-12-12 17:53 | Emergency (ER) | payer MEDICARE ==
[~2023-12-12] VITALS: Ht 175.2 cm; Wt 113.4 kg
== END 2023-12-12 21:00 ==
LOC: ED 17:53
DX: N99.522 Malfunction of incontinent external stoma of urinary tract (principal); D64.9 Anemia, unspecified; I11.0 Hypertensive heart disease with heart failure; E11.65 Type 2 diabetes mellitus with hyperglycemia; I50.9 Heart failure, unspecified; K21.9 Gastro-esophageal reflux disease without esophagitis; E78.5 Hyperlipidemia, unspecified; I25.10 Atherosclerotic heart disease of native coronary artery without angina pectoris; Z98.890 Other specified postprocedural states

== ENCOUNTER 2024-01-12 18:02 | Emergency (ER) | payer MEDICARE ==
[~2024-01-12] VITALS: Ht 160 cm; Wt 100.6 kg
[2024-01-12] MEDS ORDERED: Ondansetron Hydrochloride 4 MG/2 ML VIAL IV ONE (18:10)
[2024-01-12] MEDS ORDERED: MORPHINE Sulfate 2 MG/ML SYR IV ONE (18:10)
[2024-01-12 18:36] LABS: BASO # 0.1 10*3/uL (0.0-0.1); BASO % 0.5 % (0.0-1.0); EOS # 0.5 10*3/uL (0.0-0.4); EOS % 4.6 % (1.0-4.0); HEMATOCRIT 35.7 % (42.0-52.0); LYMPH # 1.5 10*3/uL (1.3-4.4); LYMPH % 15.8 % (27.0-41.0); MEAN CELL VOLUME 91.3 fl (80.0-94.0); MEAN CORPUSCULAR HGB 27.1 pg (27.0-31.0); MEAN CORPUSCULAR HGB CONC 29.7 g/dl (33.0-37.0); MEAN PLATELET VOLUME 9.9 fl (9.6-12.3); MONO % 10.3 % (3.0-9.0); NEUT # 6.7 10*3/uL (2.3-7.9); NEUT % 68.4 % (47.0-73.0); PLATELET COUNT AUTOMATED 326 10*3/uL (130-400); RED BLOOD COUNT 3.91 10*6/uL (4.50-5.90); RED CELL DISTRI WIDTH 17.1 % (0-14.5); WHITE BLOOD COUNT 9.8 10*3/uL (4.8-10.8)
[2024-01-12 18:57] LABS: POTASSIUM 3.8 mmol/L (3.4-5.1); TOTAL PROTEIN 7.4 gm/dL (6.0-8.0)
[2024-01-12 19:09] LABS: BILIRUBIN 1+ (Negative); BLOOD 3+ (Negative); CLARITY Turbid (Clear); COLOR Red (Yellow); GLUCOSE 2+ (Negative); KETONE Negative (Negative); LEUKO ESTERASE 3+ (Negative); NITRITE Negative (Negative); SPECIFIC GRAVITY 1.015 (1.001-1.030); UROBILINOGEN 0.2 E.U./dl (0.0-1.0)
[2024-01-12 19:37] LABS: RBC TNTC rbc/hpf (0-2)
[2024-01-12 19:38] LABS: BACTERIA 1+
[2024-01-12] MEDS ORDERED: Ceftriaxone Sodium 1 GM/10 ML SYR IV ONE (20:15)
[2024-01-12] MEDS ORDERED: CEPHALEXIN500 M1 PO (20:36)
== END 2024-01-12 21:10 | disposition home or self-care (01) ==
LOC: ED 18:02
PROVIDERS: Nurse Practitioner
DX: N39.0 Urinary tract infection, site not specified (principal); I25.10 Atherosclerotic heart disease of native coronary artery without angina pectoris; E11.9 Type 2 diabetes mellitus without complications; I10 Essential (primary) hypertension; K21.9 Gastro-esophageal reflux disease without esophagitis; I48.91 Unspecified atrial fibrillation; Z98.890 Other specified postprocedural states

== ENCOUNTER 2024-03-03 16:19 | Emergency (ER) | payer MEDICARE ==
[~2024-03-03] VITALS: Ht 165.1 cm; Wt 90.6 kg
[2024-03-03] MEDS ORDERED: TUSSIN100 MG/51 PO (16:51)
[2024-03-03 17:31] LABS: BASO # 0.1 10*3/uL (0.0-0.1); BASO % 0.6 % (0.0-1.0); EOS # 0.3 10*3/uL (0.0-0.4); EOS % 2.7 % (1.0-4.0); HEMATOCRIT 31.6 % (42.0-52.0); LYMPH # 1.5 10*3/uL (1.3-4.4); MEAN CELL VOLUME 92.4 fl (80.0-94.0); MEAN CORPUSCULAR HGB 28.4 pg (27.0-31.0); MEAN CORPUSCULAR HGB CONC 30.7 g/dl (33.0-37.0); MEAN PLATELET VOLUME 9.4 fl (9.6-12.3); MONO % 10.3 % (3.0-9.0); NEUT # 6.7 10*3/uL (2.3-7.9); NEUT % 70.1 % (47.0-73.0); PLATELET COUNT AUTOMATED 223 10*3/uL (130-400); RED BLOOD COUNT 3.42 10*6/uL (4.50-5.90); RED CELL DISTRI WIDTH 18.1 % (0-14.5); WHITE BLOOD COUNT 9.5 10*3/uL (4.8-10.8)
[2024-03-03 17:50] LABS: ALKALINE PHOSPHATASE 156 U/L (46-116); BUN 25 mg/dl (9-23); CHLORIDE 110 mmol/L (98-107); TOTAL PROTEIN 7.3 gm/dL (6.0-8.0)
[2024-03-03 17:53] LABS: SGPT/ALT < 7 U/L (5-49)
== END 2024-03-03 23:10 | disposition home or self-care (01) ==
LOC: ED 16:19
PROVIDERS: Internal Medicine
DX: G89.29 Other chronic pain (principal); R10.31 Right lower quadrant pain; C80.1 Malignant (primary) neoplasm, unspecified; Z68.1 Body mass index [BMI] 19.9 or less, adult; D64.9 Anemia, unspecified; E44.0 Moderate protein-calorie malnutrition; I25.10 Atherosclerotic heart disease of native coronary artery without angina pectoris; E11.9 Type 2 diabetes mellitus without complications; I10 Essential (primary) hypertension; K21.9 Gastro-esophageal reflux disease without esophagitis; I48.91 Unspecified atrial fibrillation; Z98.890 Other specified postprocedural states; Z95.5 Presence of coronary angioplasty implant and graft

== ENCOUNTER 2024-03-04 21:36 | Emergency (ER) | payer MEDICARE ==
[~2024-03-04] VITALS: Ht 172.7 cm; Wt 86.2 kg
[~2024-03-04 21:36] MED LIST changes: +TUSSIN100 MG/51 PO
== END 2024-03-04 23:34 ==
LOC: ED 21:36
DX: T83.031A Leakage of indwelling urethral catheter, initial encounter (principal); I25.10 Atherosclerotic heart disease of native coronary artery without angina pectoris; E11.9 Type 2 diabetes mellitus without complications; I10 Essential (primary) hypertension; K21.9 Gastro-esophageal reflux disease without esophagitis; I48.91 Unspecified atrial fibrillation; Z98.890 Other specified postprocedural states; Y82.8 Other medical devices associated with adverse incidents; Y92.129 Unspecified place in nursing home as the place of occurrence of the external cause

== ENCOUNTER 2024-03-18 04:29 | Emergency (ER) | payer MEDICARE ==
[2024-03-18] MEDS ORDERED: ATIVAN0.5 MG PO (05:47)
[2024-03-18] MEDS ORDERED: SENNA8.6 MG PO (05:57)
[2024-03-18] MEDS ORDERED: HYOSCYAMINE0.125 MG SL (06:00)
[2024-03-18] MEDS ORDERED: HYDROCODONE-AC1 EAC1 PO (06:01)
[2024-03-18] MEDS ORDERED: DULCOLAX10 M1 R (06:02)
[2024-03-18 08:02] LABS: ARTERIAL BLOOD GAS PH 7.347 (7.35-7.45)
[2024-03-18 08:04] LABS: ABG BASE EXCESS -6.8 mmol/L (-2.0-2.0)
[2024-03-18 08:25] LABS: ALKALINE PHOSPHATASE 283 U/L (46-116); BUN 43 mg/dl (9-23); CHLORIDE 107 mmol/L (98-107); POTASSIUM 4.2 mmol/L (3.4-5.1)
[2024-03-18 08:31] LABS: SGPT/ALT < 7 U/L (5-49)
[2024-03-18 09:20] LABS: BASO # 0.1 10*3/uL (0.0-0.1); BASO % 0.6 % (0.0-1.0); EOS # 0.4 10*3/uL (0.0-0.4); EOS % 3.3 % (1.0-4.0); HEMATOCRIT 32.8 % (42.0-52.0); LYMPH # 1.7 10*3/uL (1.3-4.4); LYMPH % 13.3 % (27.0-41.0); MEAN CELL VOLUME 92.1 fl (80.0-94.0); MEAN CORPUSCULAR HGB 28.1 pg (27.0-31.0); MEAN CORPUSCULAR HGB CONC 30.5 g/dl (33.0-37.0); MEAN PLATELET VOLUME 9.2 fl (9.6-12.3); MONO # 1.1 10*3/uL (0.1-1.0); MONO % 8.3 % (3.0-9.0); NEUT # 9.3 10*3/uL (2.3-7.9); PLATELET COUNT AUTOMATED 389 10*3/uL (130-400); RED BLOOD COUNT 3.56 10*6/uL (4.50-5.90); RED CELL DISTRI WIDTH 17.6 % (0-14.5); WHITE BLOOD COUNT 12.6 10*3/uL (4.8-10.8)
[2024-03-18 09:32] LABS: ACT PARTIAL THROMBO TIME 40.1 SECONDS (20.0-32.1)
[2024-03-18] MEDS ORDERED: fentaNYL CITRATE/PF 50 MCG/ML SYRINGE IV ONE (15:30)
[2024-03-18] MEDS ORDERED: MORPHINE Sulfate 2 MG/ML SYR IV ONE (15:35)
[2024-03-19] MEDS ORDERED: HYDROmorphONE Hydrochloride 0.5 MG/0.5 ML SYRINGE IV ONE ×3 (00:20→23:55)
[2024-03-20] MEDS ORDERED: HYDROmorphONE Hydrochloride 0.5 MG/0.5 ML SYRINGE IV ONE ×2 (03:25→11:25)
[2024-03-20 06:21] LABS: BASO # 0.1 10*3/uL (0.0-0.1); BASO % 0.4 % (0.0-1.0); EOS # 0.2 10*3/uL (0.0-0.4); EOS % 1.2 % (1.0-4.0); HEMATOCRIT 31.3 % (42.0-52.0); LYMPH # 1.4 10*3/uL (1.3-4.4); LYMPH % 10.2 % (27.0-41.0); MEAN CELL VOLUME 91.8 fl (80.0-94.0); MEAN CORPUSCULAR HGB 27.9 pg (27.0-31.0); MEAN CORPUSCULAR HGB CONC 30.4 g/dl (33.0-37.0); MEAN PLATELET VOLUME 9.5 fl (9.6-12.3); MONO # 1.2 10*3/uL (0.1-1.0); MONO % 8.9 % (3.0-9.0); NEUT # 10.8 10*3/uL (2.3-7.9); NEUT % 78.6 % (47.0-73.0); PLATELET COUNT AUTOMATED 467 10*3/uL (130-400); RED BLOOD COUNT 3.41 10*6/uL (4.50-5.90); RED CELL DISTRI WIDTH 18.5 % (0-14.5); WHITE BLOOD COUNT 13.7 10*3/uL (4.8-10.8)
[2024-03-20 06:43] LABS: POTASSIUM 4.3 mmol/L (3.4-5.1)
[2024-03-21] MEDS ORDERED: HYDROmorphONE Hydrochloride 0.5 MG/0.5 ML SYRINGE IV ONE (01:05)
[2024-03-21] MEDS ORDERED: Lactated Ringer's Solution 1,000 ML IV ONE (08:00)
[2024-03-21 08:23] LABS: BASO % 0.4 % (0.0-1.0); EOS # 0.4 10*3/uL (0.0-0.4); HEMATOCRIT 30.9 % (42.0-52.0); LYMPH % 19.3 % (27.0-41.0); MEAN CELL VOLUME 94.2 fl (80.0-94.0); MEAN CORPUSCULAR HGB CONC 29.8 g/dl (33.0-37.0); MEAN PLATELET VOLUME 9.2 fl (9.6-12.3); MONO # 0.9 10*3/uL (0.1-1.0); MONO % 9.2 % (3.0-9.0); NEUT # 6.7 10*3/uL (2.3-7.9); NEUT % 66.6 % (47.0-73.0); PLATELET COUNT AUTOMATED 447 10*3/uL (130-400); RED BLOOD COUNT 3.28 10*6/uL (4.50-5.90); WHITE BLOOD COUNT 10.1 10*3/uL (4.8-10.8)
[2024-03-21 08:47] LABS: POTASSIUM 3.7 mmol/L (3.4-5.1)
== END 2024-03-21 13:30 | disposition short-term general hospital (02) ==
LOC: ED 04:29
PROVIDERS: Emergency Medicine; Internal Medicine
DX: N13.9 Obstructive and reflux uropathy, unspecified (principal); R11.2 Nausea with vomiting, unspecified; I25.10 Atherosclerotic heart disease of native coronary artery without angina pectoris; E11.9 Type 2 diabetes mellitus without complications; I10 Essential (primary) hypertension; K21.9 Gastro-esophageal reflux disease without esophagitis; Z98.890 Other specified postprocedural states

== ENCOUNTER 2024-04-12 04:11 | Emergency (ER) | payer MEDICARE ==
[~2024-04-12] VITALS: Wt 89.6 kg
[~2024-04-12 04:11] MED LIST changes: +ATIVAN0.5 MG PO; +DULCOLAX10 M1 R; +HYOSCYAMINE0.125 MG SL
[2024-04-12 05:34] LABS: POTASSIUM 4.5 mmol/L (3.4-5.1)
[2024-04-12 06:06] LABS: BASO % 0.3 % (0.0-1.0); EOS # 0.2 10*3/uL (0.0-0.4); EOS % 1.2 % (1.0-4.0); HEMATOCRIT 29.5 % (42.0-52.0); LYMPH # 1.4 10*3/uL (1.3-4.4); LYMPH % 10.6 % (27.0-41.0); MEAN CELL VOLUME 94.9 fl (80.0-94.0); MEAN CORPUSCULAR HGB 28.9 pg (27.0-31.0); MEAN CORPUSCULAR HGB CONC 30.5 g/dl (33.0-37.0); MEAN PLATELET VOLUME 9.6 fl (9.6-12.3); MONO # 1.5 10*3/uL (0.1-1.0); MONO % 11.4 % (3.0-9.0); NEUT # 9.8 10*3/uL (2.3-7.9); PLATELET COUNT AUTOMATED 387 10*3/uL (130-400); RED BLOOD COUNT 3.11 10*6/uL (4.50-5.90); RED CELL DISTRI WIDTH 17.9 % (0-14.5)
[2024-04-12 07:42] LABS: BILIRUBIN Negative (Negative); BLOOD 3+ (Negative); CLARITY Turbid (Clear); COLOR Orange (Yellow); GLUCOSE Negative (Negative); KETONE Negative (Negative); LEUKO ESTERASE 3+ (Negative); NITRITE Positive (Negative); SPECIFIC GRAVITY 1.015 (1.001-1.030)
[2024-04-12 07:56] LABS: BACTERIA 4+; RBC TNTC rbc/hpf (0-2); WBC TNTC wbc/hpf (0-5)
== END 2024-04-12 07:43 ==
LOC: ED 04:11
PROVIDERS: Emergency Medicine
DX: R31.9 Hematuria, unspecified (principal); R10.9 Unspecified abdominal pain; I13.0 Hypertensive heart and chronic kidney disease with heart failure and stage 1 through stage 4 chronic kidney disease, or unspecified chronic kidney disease; N18.9 Chronic kidney disease, unspecified; I50.9 Heart failure, unspecified; Z79.899 Other long term (current) drug therapy; Z79.4 Long term (current) use of insulin; Z98.890 Other specified postprocedural states